=== PATIENT | female | born 2000 | race Caucasian/White ===

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

== ENCOUNTER → 2020-06-06 | Outpatient (CLI) | payer OTHER ==
[~2020-06-06] MED LIST changes: -ASPI-222; +ASPI-527; +CYCL-707 PO; -CYCL10TA PO; +DULC5TAB PO; +FERR324T2 PO; +MIRA3350 PO; +OMEP-218 PO; +PEG1POW PO
[2020-06-06 10:28] LABS: BASO % 0.7 % (0.0-1.0); EOS # 0.1 10^3/uL (0.0-0.5); EOS % 1.8 % (0.0-3.0); HEMATOCRIT 37.3 % (36.0-47.0); HEMOGLOBIN 11.9 g/dl (12.0-15.5); LYMPH # 1.4 10^3/uL (1.5-5.0); LYMPH % 31.3 % (24.0-44.0); MEAN CORPUSCULAR HEMOGLOBIN 27.1 pg (27.0-33.0); MEAN CORPUSCULAR HGB CONC 31.9 g/dl (32.0-36.5); MONO # 0.3 10^3/uL (0.0-0.8); NEUTROPHILS # 2.7 10^3/uL (1.5-8.5); PLATELET COUNT, AUTOMATED 320 10^3/uL (150-450); RED BLOOD COUNT 4.39 10^6/uL (4.00-5.40); WHITE BLOOD COUNT 4.5 10^3/uL (4.0-10.0)
[2020-06-06 10:39] LABS: INR 0.99; PROTHROMBIN TIME 13.3 SECONDS (12.5-14.3)
[2020-06-06 10:40] LABS: PARTIAL THROMBOPLASTIN TIME 32.7 SECONDS (24.2-38.5)
[2020-06-06 10:43] LABS: COLLAGEN EPINEPHRINE 92 SECONDS (74-162)
[2020-06-06 11:08] LABS: ALBUMIN 3.7 GM/DL (3.2-5.2); ALT/SGPT 96 U/L (12-78); BILIRUBIN,TOTAL 0.2 MG/DL (0.2-1.0); BLOOD UREA NITROGEN 8 MG/DL (7-18); CALCIUM LEVEL 9.4 MG/DL (8.5-10.1); CARBON DIOXIDE LEVEL 31 MEQ/L (21-32); CHLORIDE LEVEL 106 MEQ/L (98-107); CREATININE FOR GFR 0.63 MG/DL (0.55-1.30); FREE T4 0.97 NG/DL (0.78-1.33); GLUCOSE, FASTING 78 MG/DL (70-100); IRON (FE) 29 UG/DL (50-170); POTASSIUM SERUM 4.4 MEQ/L (3.5-5.1); SODIUM LEVEL 140 MEQ/L (136-145); TOTAL IRON BINDING CAPACITY 412 UG/DL (250-450)
[2020-06-06 13:03] LABS: VITAMIN B12 LEVEL 513 PG/ML (247-911)
[2020-06-06 13:09] LABS: FOLATE 11.8 NG/ML (>5.4)
[2020-06-08 18:09] LABS: THRYOGLOBULIN ANTIBODIES (ATA) < 1.0 IU/mL (0.0-0.9); THYROGLOBULIN QUANTITATIVE 45.7 ng/mL (1.5-38.5); TSH RECEPTOR ASSAY <1.10 IU/L (0.00-1.75)
== END ==
LOC: M PLALAB 08:43
PROVIDERS: ATTEND Pediatrics
DX: N92.0 Excessive and frequent menstruation with regular cycle (principal)

== ENCOUNTER 2020-06-14 14:15 | Observation (INO) | payer OTHER ==
[~2020-06-14] VITALS: Ht 172.7 cm; Wt 94.0 kg
[~2020-06-14 14:15] MED LIST changes: -DULC5TAB PO; -FERR324T2 PO; -MIRA3350 PO; -OMEP-218 PO; -PEG1POW PO
[2020-06-14] MEDS ORDERED: SODIUM CHLORIDE 0.9% 1000ML IV STA (14:22)
[2020-06-14 14:50] VITALS: BP 153/81
[2020-06-14] MEDS ORDERED: BISACODYL 5 MG TAB PO ONE ×2 (15:00→20:00)
[2020-06-14] MEDS ORDERED: MAALOX 30 ML SUSP *UDC PO ONE (15:00)
[2020-06-14] MEDS ORDERED: LIDOCAINE VISCOUS 2% SOLN 15ML UDC PO ONE (15:00)
[2020-06-14] MEDS ORDERED: FAMOTIDINE INJ 20MG/2ML VIAL (S0028 PER 1) IVP ONE (15:00)
[2020-06-14] MEDS ORDERED: diphenhydrAMINE 12.5MG/5ML ELIXIR UDC PO ONE (15:00)
[2020-06-14] MEDS ORDERED: KETOROLAC 30 MG/ML 1ML VIAL IV ONE (15:00)
[2020-06-14] MEDS ORDERED: METOCLOPRAMIDE INJ 10MG/2ML VIAL (J2765 PER 1) IV ONE (15:00)
[2020-06-14] MEDS ORDERED: FERR324T2 PO (15:43)
[2020-06-14] MEDS ORDERED: OMEP-218 PO (15:43)
[2020-06-14] MEDS ORDERED: MIRA3350 PO (15:43)
[2020-06-14 16:20] LABS: IMMUNOGLOBULIN A 77.9 MG/DL (70-400)
--- NOTE | 2020-06-14 17:00 | HPE ---
HISTORY AND PHYSICAL DATE OF ADMISSION: 06/14/2020 ADMITTING DIAGNOSIS: Constipation. HISTORY: The patient is a 19-year-old female who has had problems with long-standing constipation for the past year. She claims that this has happened after she was on prolonged immobilization and opioids for a leg injury. She has not had a bowel movement for the past 10 days. Her bowel movement has been pretty irregular and she would skip 3-4 days. She has had a couple of ER visits while she was in [place] for stool impactions and had to undergo enema. She has also been having some abdominal pain and has not been eating well due to pain and has lost 37 pounds for the past 3-4 months. She denies any urinary symptoms. She claims to be eating well while in [place] where she has been at college. She avoids dairy because of lactose intolerance. She lives with an aunt who is on a gluten-free diet, so she has been eating healthier. PAST MEDICAL HISTORY: She has issues with some anxiety and depression. She is currently not on any medications for this. She has been previously diagnosed with anemia while she was in [place] and was on iron supplements. ALLERGIES: She denies any food or medication allergies. LABORATORY: Recent blood work done showed a normal CMP with slightly elevated AST, ALT, mild anemia at 11.9. Thyroid functions are normal. IMMUNIZATIONS: Up to date. FAMILY PROFILE: She currently lives with her family here in [place]. She has four siblings at home with her. She is planning to go back to [place] in a few days to resume her college courses. PHYSICAL EXAMINATION: GENERAL: The physical examination today shows a well-appearing 19-year-old. HEENT: Normal. Thyroid not enlarged. Non hyperemic pharyngeal area. LUNGS: Clear. HEART: Regular rate and rhythm, no murmur appreciated. ABDOMEN: Very soft, good bowel sounds but with some tenderness in the bilateral lower quadrants. EXTREMITIES: Otherwise appear warm and well-perfused. PLAN: 1. The plan is to admit the patient for observation. 2. Will do a bowel clean out using MiraLAX and Dulcolax. 3. Will also put the patient on IV famotidine and Toradol and metoclopramide x1 dose to help with the cramping. 4. Put the patient on clears while doing clean out and with hope that she will pass out stool and may be discharged possibly tomorrow morning. Dr. Chandler Ruiz will follow her up tomorrow.
[2020-06-14] MEDS ORDERED: MIRALAX *UNIT DOSE* 17GM PACKET PO ONE (18:00)
[2020-06-14] MEDS: KCL 20MEQ IN D5/0.2%NS 1000ML 1,000 ML IV SCH (18:21)
[2020-06-14 20:00] VITALS: BP 133/77
[2020-06-14] MEDS ORDERED: ONDANSETRON 4MG/2ML VIAL IV PRN (22:00)
[2020-06-14] MEDS ORDERED: KETOROLAC 30 MG/ML 1ML VIAL IV PRN (22:00)
[2020-06-15] VITALS: BP 112/62
[2020-06-15 04:00] VITALS: BP 124/82
[2020-06-15] MEDS: KCL 20MEQ IN D5/0.2%NS 1000ML 1,000 ML IV SCH (06:30)
[2020-06-15 08:05] VITALS: BP 133/64
[2020-06-15] MEDS ORDERED: MAGNESIUM CITRATE 300 ML BTL PO ONE ×2 (09:00→14:00)
[2020-06-15 12:04] VITALS: BP 123/60
--- NOTE | 2020-06-15 14:49 | IPNPDOC ---
Text Note Date of Service The patient was seen on 06/15/20. NOTE S : 19 year old female was sent for admission to the [facility] pediatrics department for a persistent constipation since the last 12 days. Before this she had been to the outpatient provider, last friday with complaints of constipation and was asked to try a trial of Miralax at home. She got 25 mg of Miralax at home twice a day on friday and friday which usually helps her pass a bowel motion, but not this time. At this moment she had also started with a dull achy, abdominal pain in the lower quadrants. She has no associated GI symptoms like vomiting but gets nausea on occasion. She has had her last solid meal on Friday and since then she has only been tolerating liquids. She has a history of recurrent episodes of constipation and Iron deficiency anemia for which she is on Iron supplements (10 months). She states that this started since the last few years after she had been on narcotics for her leg surgery. She was treated for opioid induced constipation but since then she states "it has never been the same". She denies any opioid use since then . She has never had blood in stools, no sensation of incomplete evacuation, no alternate episodes of diarrhea, no new stressors. Hospital day 2: Since yesterday she has been feeling fine but still has not gone to the bathroom to pass bowels, her abdominal pain is consistent with no worsening and her nausea is also better as per the patient. O: GENERAL PHYSICAL EXAMINATION: GENERAL: Pt looks slightly uncomfortable but in no apparent distress. HEENT: Atraumatic/Normocephalic, with no scleral icterus or conjunctival pallor. NECK: No lymphadenopathy or thyromegaly LUNGS: Normal b/l breath sounds with no wheezing, rhonchi or stridor. CVS: Normal heart sounds with no murmurs GI: Soft, Non distended abdomen with dull pain on deep palpation in the lower right and left quadrants of the abdomen. Yin's sign negative. Bowel sounds 1+, No rashes or scars . NEURO: Good motor tone 5/5 and normal reflexes and sensations intact./ PSYCH: Normal mood and affect. A&P: IDIOPATHIC CONSTIPATION: -Continuos monitoring of vitals -Strict I's and O's. -Pt was started on I/V fluids and the amount was decreased from 75 to 25 ml/hour. -Pt was given Miralax overnight 6-8 packets and Dulcolex tablets. -Today we are discontinuing the Miralax and starting Magnesium Citrate 450 ml with clear fluids(240ml over a period of 2 hours) -A repeat dose will be given 4 hours after if the patient continues to be constipated. -Pt is on Zofran and Ketorolac PRN in case of any nausea or pain from cramping. DISPOSITION: Pt has not passed bowels yet and will be discharged when she is able to. VS,Fishbone, I+O VS, Fishbone, I+O Vital Signs Date Time Temp Pulse Resp B/P (MAP) Pulse Ox O2 Delivery O2 Flow Rate FiO2 06/15/20 12:04 97.3 68 20 123/60 (81) 100 Room Air I&O- Last 24 Hours up to 6 AM 06/15/20 06:00 Intake Total 1960 ml Output Total 850 ml Balance 1110 ml GME ATTESTATION GME ATTESTATION My faculty preceptor for this patient encounter was physically present during the encounter and was fully available. All aspects of the patient interview, examination, medical decision making process, and medical care plan development were reviewed and approved by the faculty preceptor. The faculty preceptor is aware and concurs with the plan as stated in the body of this note and will attest to such by his/her cosignature. Gavin Pearson MD Jun 15, 2020 14:49
[2020-06-15 16:07] VITALS: BP 141/75
--- NOTE | 2020-06-15 18:13 | REP ---
INDICATION: 12 days of constipation. COMPARISON: Comparison radiograph 25 May 2018.. TECHNIQUE: Two supine views the abdomen are obtained. FINDINGS: There is some air in the transverse and descending segments of the colon. There is no observable fecal content within the colon. Flank stripes are intact. Psoas margins are obscured. No large or small bowel dilation is appreciated. No bony abnormality is seen. No pathologic calcification or organomegaly seen. IMPRESSION: Bowel gas pattern is unremarkable. There is no observable stool within the colon. No evidence of obstruction. <Electronically signed by Deshaun Mishra > 06/15/20 [id number]
[2020-06-15] MEDS ORDERED: POLY17PO18 PO (18:55)
[2020-06-15] MEDS ORDERED: DULC5TAB PO (18:55)
[2020-06-16 17:12] LABS: ENDOMYSIAL ABY IgA Negative (Negative); TISSUE TRANSGLUTAMINASE IgA <2 U/mL (0-3)
== END 2020-06-15 20:00 | disposition home or self-care (01) ==
LOC: UNDOADMOB 14:22 → M PED 14:22 → INTOOBSV 14:22 → M PED 14:22 → UNDODISOB 06-15 20:00
PROVIDERS: ADMIT Pediatrics; ATTEND Pediatrics
DX: K59.00 Constipation, unspecified (principal); F32.9 Major depressive disorder, single episode, unspecified; F41.9 Anxiety disorder, unspecified
CPT/HCPCS: 36415; 74018; 82150; 82784; 83690; 86235; 86255; 96374; 96375; J1885; J2765

== ENCOUNTER → 2020-06-20 | Outpatient (REF) | payer OTHER ==
[~2020-06-20] MED LIST changes: +DULC5TAB PO; +FERR324T2 PO; +MIRA3350 PO; +OMEP-218 PO; +PEG1POW PO
== END ==
LOC: M LAB REF 16:44
PROVIDERS: ATTEND Pediatrics
DX: Z86.16 Personal history of COVID-19 (principal)

== ENCOUNTER 2020-06-25 18:29 | Emergency (ER) | payer OTHER ==
[~2020-06-25] VITALS: Ht 175.3 cm; Wt 96.2 kg
[2020-06-25] MEDS ORDERED: FERR324T2 (18:38)
--- OUTSIDE RECORDS SUMMARY | 2020-06-25 18:38 | CCD | Continuity of Care Document ---
Author Author Esperanza CARDENAS M.D. Organization Unknown Address [address] [facility] [address] [facility] [address] [place] [address] Phone [phone] Problems Active Problems Provider Date Attention deficit hyperactivity disorder Nicole Triana MD Onset: 08/24/2012 Generalized anxiety disorder Nicole Triana MD Onset: 08/10 Social History Type Date Description Comments Sex Unknown Tobacco Use Start: Unknown Patient has never smoked Allergies, Adverse Reactions, Alerts Description No Known Drug Allergies Medications Active Medications SIG Qnty Indications Ordering Provide r Date Bisacodyl Ec 5mg Tablets DR 1 tab by mouth 2x a day x 3 days 6tabs Real Kent MD 06/12/19 21 Glycerin (Adult) 2gm Suppository 1 supp daily x 3 days 3units Real Kent MD 06/12/[address] 1 tab po daily 90tabs Dyana Cardenas M.D. 06/06/2020 Miralax 17GM/Scoop Powder 1 capful by mouth daily mixed with food. titrate to effect. 1Bottle K59.00 Dyana Cardenas M.D. 06/05/[address] 1 by mouth every day 30caps K21.9 Dyana Cardenas M.D. 06/05/2020 Clonidine HCL 0.1mg Tablets 1 1/2 tab by mouth at bedtime 45tabs Z72.821 Dyana Cardenas M.D. 07/13/2018 Ventolin HFA 108(90Base) mcg/Act A erosol 2 pffs every 4 hours as needed wheezing/before activity 1canister J20.9 Nicole Triana MD 10/03/2016 Immunizations CPT Code Status Date Vaccine Lot # [id number] Given 10/27/2018 Tuberculosis Intradermal [id number] 96085 Given 07/13/2018 Trumenba [facility] Recombinant Lipoprotein Vaccine Serogroup B [id number] 35496 Given 03/24/2018 Influenza .5 [id number] 19377 Given 03/24/2018 Gardasil 9 (Current) [id number] 86183 Given 01/07/2018 Menactra VF [id number] 35021 Given 01/07/2018 [facility]ba [facility] Recombinant Lipoprotein Vaccine Serogroup B [id number] 45387 Given 05/18/2016 Influenza .5 [id number] 47072 Given 07/12/2014 Gardasil (HPV)Old One DO Not Use [id number] 16250 Given 05/02/2014 Gardasil (HPV) [facility] [id number] 46882 Given 04/02/2014 Influenza .5 [id number] 17740 Given 03/27/2013 Influenza 3Yrs And Up [id number] 79838 Given 08/24/2012 Menactra [facility] [id number] 86987 Given 03/14/2012 Influenza 3Yrs And Up [id number] 27564 Given 04/19/2011 Boostrix/Adacell 75036 Given 03/12/2011 Influenza 3Yrs And Up 06110 Given 03/14/2009 Flu Mist/ Live Virus 85828 Given 03/30/2008 Flu Mist/ Live Virus 45188 Given 12/16/2007 Hep A,Ped Dose-2 For Intramu scular Use 50145 Given 06/17/2007 Immunization Influenza (3 Yr s. & Above) 52116 Given 06/17/2007 Hep A,Ped Dose-2 For Intramu scular Use 31000 Given 12/18/2006 Varivax 34324 Given 08/22/2005 DTaP 90174 Given 08/22/2005 MMR Immunization 03413 Given 08/22/2005 IPV Polio Vaccine 14629 Given 08/15/2005 DTaP 67191 Given 05/02/2004 Immunization Influenza (3 Yr s. & Above) 06993 Given 04/14/2003 Immunization Influenza (Unde r 3 Yrs.) 94468 Given 12/22/2001 MMR Immunization 06561 Given 12/22/2001 DTaP 93143 Given 09/29/2001 Hibtiter 19651 Given 09/29/2001 Varivax 98294 Given 09/29/2001 [place] [address] Given 03/30/2001 Hep B 91744 Given 03/30/2001 Hib 25906 Given 01/16/2001 Hib 01686 Given 01/16/2001 [place] [address] Given 01/16/2001 DTaP 65539 Given 01/16/2001 IPV Polio Vaccine 77814 Given 01/16/2001 Hep B 51841 Given 01/16/2001 Comvax 0.5 ML (Combination) [id number] - Hepatits [id number] 83222 Given 2000 Hib 90101 Given 2000 Comvax 0.5 ML (Combination) [id number] - Hepatits [id number] 43622 Given 2000 IPV Polio Vaccine 91529 Given 2000 DTaP 77403 Given 2000 [place] [address] Given 2000 Hep B Vital Signs Date Vital Result Comment 06/14/2020 1:30pm Weight 208.00 lb Weight 94.349 kg Weight Percentile >97th 06/05/2020 2:31pm Weight 207.75 lb Weight 94.235 kg Weight Percentile >97th Results Test Acquired Date Facility Test Result H/L Range Note CBC With Differential 06/06/[address] [address] (315)- - White Blood Count 4.5 10 Normal 4.0-10.0 Red Blood Count 4.39 10 Normal 4.00-5.40 Hemoglobin 11.9 g/dL Low 12.0-15.5 Hematocrit 37.3 % Normal 36.0-47.0 Mean Corpuscular Volume 85.0 fl Normal 80.0-96.0 Mean Corpuscular Hemoglobin 27.1 pg Normal 27.0-33.0 Mean Corpuscular HGB Conc 31.9 g/dL Low 32.0-36.5 Red Cell Distribution Width 13.7 % Normal 11.5-14.5 Platelet Count, Automated 320 10 Normal 150-450 Neutrophils % 60.0 % Normal 36.0-66.0 Lymph % 31.3 % Normal 24.0-44.0 [place] % 6.0 % High 0.0-5.0 Eos % 1.8 % Normal 0.0-3.0 Baso % 0.7 % Normal 0.0-1.0 Immature Granulocyte % 0.2 % Normal 0-3.0 Nucleated Red Blood Cell % 0.0 % Normal 0-0 Neutrophils # 2.7 10 Normal 1.5-8.5 Lymph # 1.4 10 Low 1.5-5.0 [place] # 0.3 10 Normal 0.0-0.8 Eos # 0.1 10 Normal 0.0-0.5 Baso # 0.0 10 Normal 0.0-0.2 Laboratory test finding 06/06/2020 [place] [address] (070)- - Vitamin D 1,25 Dihydroxy 49.0 pg/mL Normal 19.9-79.3 Laboratory test finding 06/06/2020 [place] [address] (096)- - TSH Receptor Assay <1.10 IU/L Normal 0.00-1.75 Thyroglob QNT Incl Thyrogl Diamond 06/06/2020 [place] [address] (247)- - Thyroglobulin Quantitative 45.7 ng/mL High 1.5-38.5 1 Thryoglobulin Antibodies (Fernando) < 1.0 IU/mL Normal 0.0-0.9 2 PT & Aptt 06/06/2020 [facility]ter [address] [place] [address] (198)- - Prothrombin Time 13.3 seconds Normal 12.5-14.3 Inr 0.99 Normal 3 Partial Thromboplastin Time 32.7 seconds Normal 24.2-38.5 Platelet Function Analysis 06/06/2020 [place] [address] (534)- - Collagen Epinephrine 92 seconds Normal 74-162 4 Comprehensive Metabolic Profil 06/06/2020 [place] [address] (059)- - Glucose, Fasting 78 mg/dL Normal 70-100 Blood Urea Nitrogen 8 mg/dL Normal 7-18 Creatinine For GFR 0.63 mg/dL Normal 0.55-1.30 Sodium Level 140 mEq/L Normal 136-145 Potassium Serum 4.4 mEq/L Normal 3.5-5.1 Chloride Level 106 mEq/L Normal 98-107 Carbon Dioxide Level 31 mEq/L Normal 21-32 Anion Gap 3 mEq/L Low 8-16 Calcium Level 9.4 mg/dL Normal 8.5-10.1 Ast/Sgot 63 U/L High 7-37 Alt/SGPT 96 U/L High 12-78 Alkaline Phosphatase 64 U/L Normal 45-117 Bilirubin,Total 0.2 mg/dL Normal 0.2-1.0 Total Protein 7.0 GM/DL Normal 6.4-8.2 Albumin 3.7 GM/DL Normal 3.2-5.2 Albumin/Globulin Ratio 1.1 Low 1.2-2.2 Total Iron Binding Capacit 06/06/[address] [address] (315)- - Iron (Fe) 29 g/dL Low 50-170 Total Iron Binding Capacity 412 g/dL Normal 250-450 Percent Saturation 7.0 % Low 13.2-45.0 Laboratory test finding 06/06/[address] [address] (315)- - Thyroid Stimulating Hormone 2.350 uIU/ML Normal 0.463- 3.98 Free T4 0.97 ng/dL Normal 0.78-1.33 Vitamin B12 Level 513 pg/mL Normal 247-911 5 Folate 11.8 NG/ML Normal >5.4 6 1 . According to the National Academy of Clinical [employer]ochemistry, the reference interval for Thyroglobulin (TG) should be related to euthyroid patients and not for patients who underwent thyroidectomy. TG reference intervals for these patients depend on the residual mass of the thyroid tissue left after surgery. Establishing a post-operative baseline is recommended. The assay limit of quantitation is 0.1 ng/mL . Thyroglobulin measured by [facility] [place] [facility] Performed at: - [facility] [id number] [address] [employer] Driver: Louis Batista MD, Phone: [phone] Performed at: - [facility] [id number] [employer] Driver: Nathalie Marie MD, Phone: [phone] 2 Thyroglobulin Antibody measu red by [facility] 3 THERAPUTIC HUMAN INR VALUES INDICATIONS NORMAL RANGES PROPHYLAXIS/TREATMENT OF: VENOUS THROMBOSIS 2.0-3.0 PULMONARY EMBOLISM 2.0-3.0 PREVENTION OF SYSTEMIC EMBOLISM FROM: TISSUE HEART VALVES 2.0-3.0 ACUTE MYOCARDIAL INFARCTION 2.0-3.0 VALVULAR HEART DISEASE 2.0-3.0 ATRIAL FIBRILLATION 2.0-3.0 MECHANICAL VALVES(HIGH RISK) 2.5-3.5 RECURRENT MYOCARDIAL INFARCTION 2.5-3.5 4 Results may be affected by p latelet counts less than 150,000/mL or hematocrits less than 35%. If COL/EPI is NORMAL, COL/ADP is not performed. Result Interpretation: COL/EPI COL/ADP NORMAL NORMAL NORMAL ASA ABNORMAL NORMAL vWD ABNORMAL NORMAL GLANZMANN'S ABNORMAL ABNORMAL THROMBASTHENIA POSSIBLE DRUG ABNORMAL ABNORMAL EFFECT 5 VITAMIN B12 NORMAL RANGE NORMAL 247 - 911 PG/ML INDETERMINATE 211 - 246 PG/ML DEFICIENT LESS THAN 211 PG/ML 6 FOLATE NORMAL RANGE NORMAL GREATER THAN 5.4 NG/ML INDETERMINATE 3.4-5.4 NG/ML DEFICIENT LESS THAN 3.4 NG/ML Procedures Description No Information Available Medical Devices Description No Information Available Encounters Type Date Location Provider Dx Diagnosis Office Visit 06/20/2020 3:00p Main Office Dyana Cardenas M.D. Z03.818 Encntr for obs for susp expsr to oth biolg agents ruled out Office Visit 06/19/2020 10:15a Main Office Dyana Cardenas M.D. J03.00 Acute streptococcal tonsillitis, unspecified Z86.16 Personal history of Covid-19 Office Visit 06/05/2020 2:15p Main Office Dyana Cardenas M.D. N92.0 Excessive and frequent menstruation with regular cycle D50.9 Iron deficiency anemia, unsp ecified K59.00 Constipation, unspecified K21.9 Gastro-esophageal reflux dis ease without esophagitis Assessments Date Code Description Provider 06/20/2020 Z03.818 Encounter for observ ation for suspected exposure to other biological agents ruled out Dyana Cardenas M.D. 06/19/2020 J03.00 Acute streptococcal tonsillitis, unspecified Dyana Cardenas M.D. 06/19/2020 Z86.16 Personal history of Covid-19 Ina Cardenas M.D. 06/05/2020 N92.0 Excessive and frequent menstruat ion with regular cycle Dyana Cardenas M.D. 06/05/2020 D50.9 Iron deficiency anemia, unspecif ied Dyana Cardenas M.D. 06/05/2020 K59.00 Constipation, unspecified Dyana ahmadi M.D. 06/05/2020 K21.9 Gastro-esophageal reflux disease without esophagitis Dyana Cardenas M.D. Plan of Treatment Future Appointment(s):* 07/06/2020 2:15 pm - Dyana Cardenas M.D. at Main Office 06/19/2020 - Dyana Cardenas M.D.* J03.00 Acute streptococcal tonsillitis, unspecified* Comments:* continue current antibiotics * Z86.16 Personal history of Covid-19* Comments:* awating confirmatory PCR Functional Status Description No Information Available Mental Status Description No Information Available Referrals Description No Information Available
--- OUTSIDE RECORDS SUMMARY | 2020-06-25 18:38 | CCD | Continuity of Care Document ---
Author Author Esperanza CARDENAS M.D. Organization Unknown Address [address] [facility] [address] [place] [address] Phone [phone] Problems Active Problems Provider Date Attention deficit [...] CPT Code Status Date Vaccine Lot # 11073 Given 10/27/2018 Tuberculosis Intradermal [id number] 41661 Given 07/13/2018 Trumen[facility] Recombinant Lipoprotein Vaccine Serogroup B [id number] 44002 Given 03/24/2018 Influenza .5 [id number] 72356 Given 03/24/2018 Gardasil 9 (Current) [id number] 67308 Given 01/07/2018 Menactra VF [id number] 12914 Given 01/07/2018 Trumenba [facility] Recombinant Lipoprotein Vaccine Serogroup B [id number] 67088 Given 05/18/2016 Influenza .5 [id number] 23960 Given 07/12/2014 Gardasil (HPV)Old One DO Not Use [id number] 32791 Given 05/02/2014 Gardasil (HPV) [facility] [id number] 76668 Given 04/02/2014 Influenza .5 [id number] 18373 Given 03/27/2013 Influenza 3Yrs And Up [id number] 50641 Given 08/24/2012 Menactra [facility] [id number] 30261 Given 03/14/2012 Influenza 3Yrs And Up [id number] 02928 Given 04/19/2011 Boostrix/Adacell 58436 Given 03/12/2011 Influenza 3Yrs And Up 80648 Given 03/14/2009 Flu Mist/ Live Virus 14215 Given 03/30/2008 Flu Mist/ Live Virus 57779 Given 12/16/2007 Hep A,Ped Dose-2 For Intramu scular Use 21591 Given 06/17/2007 Immunization Influenza (3 Yr s. & Above) 54776 Given 06/17/2007 Hep A,Ped Dose-2 For Intramu scular Use 36061 Given 12/18/2006 Varivax 62145 Given 08/22/2005 DTaP 99630 Given 08/22/2005 MMR Immunization 73966 Given 08/22/2005 IPV Polio Vaccine 08457 Given 08/15/2005 DTaP 94255 Given 05/02/2004 Immunization Influenza (3 Yr s. & Above) 47313 Given 04/14/2003 Immunization Influenza (Unde r 3 Yrs.) 58079 Given 12/22/2001 MMR Immunization 56169 Given 12/22/2001 DTaP 31313 Given 09/29/2001 Hibtiter 75966 Given 09/29/2001 Varivax 15041 Given 09/29/2001 [place] [address] Given 03/30/2001 Hep B 14180 Given 03/30/2001 Hib 40385 Given 01/16/2001 Hib 12859 Given 01/16/2001 [place] [address] Given 01/16/2001 DTaP 59557 Given 01/16/2001 IPV Polio Vaccine 27766 Given 01/16/2001 Hep B 15650 Given 01/16/2001 Comvax 0.5 ML (Combination) Hib-[id number] - Hepatits B-34046 18534 Given 2000 Hib 39049 Given 2000 Comvax 0.5 ML (Combination) Hib-46944 - Hepatits B-52966 04734 Given 2000 IPV Polio Vaccine 55664 Given 2000 DTaP 65054 Given 2000 [place] [address] Given 2000 Hep B Vital Signs Date Vital Result Comment 06/14/2020 1:30pm Weight 208.00 lb Weight 94.349 kg Weight Percentile >97th 06/05/2020 2:31pm Weight 207.75 lb Weight 94.235 kg Weight Percentile >97th Results Test Acquired Date Facility Test Result H/L Range Note Laboratory test finding 06/20/[address] [address] (315)- - Coronavirus 2019 Nasopharygeal This nucleic aci <SEE NOTE> 1 Laboratory test finding 06/06/[address] [address] (315)- - Vitamin D 1,25 Dihydroxy 49.0 pg/mL Normal 19.9-79.3 Laboratory test finding 06/06/[address] [address] (315)- - TSH Receptor Assay <1.10 IU/L Normal 0.00-1.75 Thyroglob QNT Incl Thyrogl Diamond 06/06/[address] [address] (315)- - Thyroglobulin Quantitative 45.7 ng/mL High 1.5-38.5 2 Thryoglobulin Antibodies (Fernando) < 1.0 IU/mL Normal 0.0-0.9 3 PT & Aptt 06/06/2020 [facility] nter [address] [place] [address] (315)- - Prothrombin Time 13.3 seconds Normal 12.5-14.3 Inr 0.99 Normal 4 Partial Thromboplastin Time 32.7 seconds Normal 24.2-38.5 Platelet Function Analysis 06/06/2020 [place] [address] (315)- - Collagen Epinephrine 92 seconds Normal 74-162 5 Comprehensive Metabolic Profil 06/06/2020 [place] [address] (315)- - Glucose, Fasting 78 mg/dL Normal 70-100 [...] Low 1.2-2.2 Total Iron Binding Capacit 06/06/2020 [place] [address] (315)- - Iron (Fe) 29 g/dL Low 50-170 Total Iron Binding Capacity 412 g/dL Normal 250-450 Percent Saturation 7.0 % Low 13.2-45.0 Laboratory test finding 06/06/2020 [facility] [address] [place] [address] (315)- - Thyroid Stimulating Hormone 2.350 uIU/ML Normal 0.463- 3.98 Free T4 0.97 ng/dL Normal 0.78-1.33 Vitamin B12 Level 513 pg/mL Normal 247-911 6 Folate 11.8 NG/ML Normal >5.4 7 CBC With Differential 06/06/2020 [facility] [address] [place] [address] (315)- - White Blood Count 4.5 10 [...] 36.0-66.0 Lymph % 31.3 % Normal 24.0-44.0 [place] % 6.0 % High 0.0-5.0 Eos % 1.8 % Normal 0.0-3.0 Baso % 0.7 % Normal 0.0-1.0 Immature Granulocyte % 0.2 % Normal 0-3.0 Nucleated Red Blood Cell % 0.0 % Normal 0-0 Neutrophils # 2.7 10 Normal 1.5-8.5 Lymph # 1.4 10 Low 1.5-5.0 [place] # 0.3 10 Normal 0.0-0.8 Eos # 0.1 10 Normal 0.0-0.5 Baso # 0.0 10 Normal 0.0-0.2 1 This nucleic acid amplificat ion test was developed and its performance characteristics determined by [employer]. Nucleic acid amplification tests include RT- PCR and TMA. This test has not been FDA cleared or approved. This test has been authorized by FDA under an Emergency Use Authorization (EUA). This test is only authorized for the duration of time the declaration that circumstances exist justifying the authorization of the emergency use of in vitro diagnostic tests for detection of SARS-CoV-2 virus and/or diagnosis of COVID-19 infection under section 564(b)(1) of the Act, 21 U.S.C. 360bbb-3(b) (1), unless the authorization is termina cally or revoked sooner. When diagnostic testing is negative, the possibility of a false negative result should be considered in the context of a patient's recent exposures and the presence of clinical signs and symptoms consistent with COVID-19. An individual without symptoms of COVID-19 and who is not shedding SARS-CoV-2 virus would expect to have a negative (not detected) result in this assay. Performed at: [facility] [address], [place] [id number] Polysom Tech: Lashell Whaley PhD, Phone: [phone] Not Detected 2 . According to the National Academy of [...] 0.1 ng/mL . Thyroglobulin measured by Munira Devers Immunometric Assay Performed at: - [facility] [id number] Polysom Tech: Louis Batista MD, Phone: [phone] Performed at: - [facility] [address] [id number] Polysom Tech: Nathalie Marie MD, Phone: [phone] 3 Thyroglobulin Antibody measu red by Munira Devers Methodology 4 THERAPUTIC HUMAN INR VALUES INDICATIONS NORMAL RANGES PROPHYLAXIS/TREATMENT OF: VENOUS THROMBOSIS 2.0-3.0 PULMONARY EMBOLISM 2.0-3.0 PREVENTION OF SYSTEMIC EMBOLISM FROM: TISSUE HEART VALVES 2.0-3.0 ACUTE MYOCARDIAL INFARCTION 2.0-3.0 VALVULAR HEART DISEASE 2.0-3.0 ATRIAL FIBRILLATION 2.0-3.0 MECHANICAL VALVES(HIGH RISK) 2.5-3.5 RECURRENT MYOCARDIAL INFARCTION 2.5-3.5 5 Results may be affected by p latelet counts less than 150,000/mL or hematocrits less than 35%. If COL/EPI is NORMAL, COL/ADP is not performed. Result Interpretation: COL/EPI COL/ADP NORMAL NORMAL NORMAL ASA ABNORMAL NORMAL vWD ABNORMAL NORMAL GLANZMANN'S ABNORMAL ABNORMAL THROMBASTHENIA POSSIBLE DRUG ABNORMAL ABNORMAL EFFECT 6 VITAMIN B12 NORMAL RANGE NORMAL 247 - 911 PG/ML INDETERMINATE 211 - 246 PG/ML DEFICIENT LESS THAN 211 PG/ML 7 FOLATE NORMAL RANGE NORMAL GREATER THAN 5.4 [...]
--- OUTSIDE RECORDS SUMMARY | 2020-06-25 18:38 | CCD | Continuity of Care Document ---
Author Author Esperanza CARDENAS M.D. Organization Unknown Address [address] [facility] [address] [place] [address] Phone [phone] Problems Active Problems Provider Date Attention deficit hyperactivity disorder Nicole Triana MD Onset: 08/24/2012 Generalized anxiety disorder Nicole Triana MD Onset: 08/10 Social History Type Date Description Comments Sex Unknown Tobacco Use Start: Unknown Patient has never smoked Allergies, Adverse Reactions, Alerts Description No Known Drug Allergies Medications Active Medications SIG Qnty Indications Ordering Provide r Date Ferrous Sulfate 324mg Tablets DR 1 tab [...] CPT Code Status Date Vaccine Lot # 20317 Given 10/27/2018 Tuberculosis Intradermal C55 [id number] 07128 Given 07/13/2018 Trumenba [facility] Recombinant Lipoprotein Vaccine Serogroup B [id number] 74023 Given 03/24/2018 Influenza .5 [id number] 58066 Given 03/24/2018 Gardasil 9 (Current) [id number] 74113 Given 01/07/2018 Menactra [facility] [id number] 39582 Given 01/07/2018 Trumenba [facility] Recombinant Lipoprotein Vaccine Serogroup B [id number] 86382 Given 05/18/2016 Influenza .5 [id number] 67259 Given 07/12/2014 Gardasil (HPV)Old One DO Not Use [id number] 46000 Given 05/02/2014 Gardasil (HPV) [facility] [id number] 05777 Given 04/02/2014 Influenza .5 [id number] 47961 Given 03/27/2013 Influenza 3Yrs And Up [id number] 23237 Given 08/24/2012 Menactra [facility] [id number] 90874 Given 03/14/2012 Influenza 3Yrs And Up [id number] 11728 Given 04/19/2011 Boostrix/Adacell 67316 Given 03/12/2011 Influenza 3Yrs And Up 59406 Given 03/14/2009 Flu Mist/ Live Virus 51790 Given 03/30/2008 Flu Mist/ Live Virus 24629 Given 12/16/2007 Hep A,Ped Dose-2 For Intramu scular Use 32490 Given 06/17/2007 Immunization Influenza (3 Yr s. & Above) 51073 Given 06/17/2007 Hep A,Ped Dose-2 For Intramu scular Use 83486 Given 12/18/2006 Varivax 72414 Given 08/22/2005 DTaP 33628 Given 08/22/2005 MMR Immunization 48267 Given 08/22/2005 IPV Polio Vaccine 78889 Given 08/15/2005 DTaP 55274 Given 05/02/2004 Immunization Influenza (3 Yr s. & Above) 01331 Given 04/14/2003 Immunization Influenza (Unde r 3 Yrs.) 35988 Given 12/22/2001 MMR Immunization 50091 Given 12/22/2001 DTaP 87209 Given 09/29/2001 Hibtiter 52582 Given 09/29/2001 Varivax 98721 Given 09/29/2001 [place] [address] Given 03/30/2001 Hep B 68592 Given 03/30/2001 Hib 09051 Given 01/16/2001 Hib 56246 Given 01/16/2001 [place] [address] Given 01/16/2001 DTaP 50947 Given 01/16/2001 IPV Polio Vaccine 78341 Given 01/16/2001 Hep B 55097 Given 01/16/2001 Comvax 0.5 ML (Combination) Hib-[id number] - Hepatits B-20165 45876 Given 2000 Hib 93401 Given 2000 Comvax 0.5 ML (Combination) Hib-98659 - Hepatits B-94413 62961 Given 2000 IPV Polio Vaccine 82668 Given 2000 DTaP 33131 Given 2000 [place] [address] Given 2000 Hep B Vital Signs Date Vital Result Comment 06/05/2020 2:31pm Weight 207.75 lb Weight 94.235 kg Weight Percentile >97th 10/27/2018 9:27am Weight 238.50 lb Weight 108.184 kg Body Temperature 97.3 F Weight Percentile >97th Results Test Acquired Date Facility Test Result H/L Range Note CBC With Differential 06/06/[address] [address] (315)- - White Blood Count 4.5 10 [...] 36.0-66.0 Lymph % 31.3 % Normal 24.0-44.0 [place] % 6.0 % High 0.0-5.0 Eos % 1.8 % Normal 0.0-3.0 Baso % 0.7 % Normal 0.0-1.0 Immature Granulocyte % 0.2 % Normal 0-3.0 Nucleated Red Blood Cell % 0.0 % Normal 0-0 Neutrophils # 2.7 10 Normal 1.5-8.5 Lymph # 1.4 10 Low 1.5-5.0 [place] # 0.3 10 Normal 0.0-0.8 Eos # 0.1 10 Normal 0.0-0.5 Baso # 0.0 10 Normal 0.0-0.2 Laboratory test finding 06/06/2020 [place] [address] (315)- - Vitamin D 1,25 Dihydroxy <pending> Laboratory test finding 06/06/2020 [place] [address] (315)- - TSH Receptor Assay <pending> PT & Aptt 06/06/2020 [facility] nter [address] [place] [address] (315)- - Prothrombin Time 13.3 seconds Normal 12.5-14.3 Inr 0.99 Normal 1 Partial Thromboplastin Time 32.7 seconds Normal 24.2-38.5 Platelet Function Analysis 06/06/[address] [address] (315)- - Collagen Epinephrine 92 seconds Normal 74-162 2 Comprehensive Metabolic Profil 06/06/[address] [address] (315)- - Glucose, Fasting 78 mg/dL Normal [...] Low 1.2-2.2 Total Iron Binding Capacit 06/06/[address] [address] (315)- - Iron (Fe) 29 g/dL Low 50-170 Total Iron Binding Capacity 412 g/dL Normal 250-450 Percent Saturation 7.0 % Low 13.2-45.0 Laboratory test finding 06/06/[address] [address] (315)- - Thyroid Stimulating Hormone 2.350 uIU/ML Normal 0.463- 3.98 Free T4 0.97 ng/dL Normal 0.78-1.33 Vitamin B12 Level 513 pg/mL Normal 247-911 3 Folate 11.8 NG/ML Normal >5.4 4 1 THERAPUTIC HUMAN INR VALUES INDICATIONS NORMAL RANGES PROPHYLAXIS/TREATMENT OF: VENOUS THROMBOSIS 2.0-3.0 PULMONARY EMBOLISM 2.0-3.0 PREVENTION OF SYSTEMIC EMBOLISM FROM: TISSUE HEART VALVES 2.0-3.0 ACUTE MYOCARDIAL INFARCTION 2.0-3.0 VALVULAR HEART DISEASE 2.0-3.0 ATRIAL FIBRILLATION 2.0-3.0 MECHANICAL VALVES(HIGH RISK) 2.5-3.5 RECURRENT MYOCARDIAL INFARCTION 2.5-3.5 2 Results may be affected by p latelet counts less than 150,000/mL or hematocrits less than 35%. If COL/EPI is NORMAL, COL/ADP is not performed. Result Interpretation: COL/EPI COL/ADP NORMAL NORMAL NORMAL ASA ABNORMAL NORMAL vWD ABNORMAL NORMAL GLANZMANN'S ABNORMAL ABNORMAL THROMBASTHENIA POSSIBLE DRUG ABNORMAL ABNORMAL EFFECT 3 VITAMIN B12 NORMAL RANGE NORMAL 247 - 911 PG/ML INDETERMINATE 211 - 246 PG/ML DEFICIENT LESS THAN 211 PG/ML 4 FOLATE NORMAL RANGE NORMAL GREATER THAN 5.4 NG/ML INDETERMINATE 3.4-5.4 NG/ML DEFICIENT LESS THAN 3.4 NG/ML Procedures Description No Information Available Medical Devices Description No Information Available Encounters Type Date Location Provider Dx Diagnosis Office Visit 06/05/2020 2:15p Main Office Dyana Cardenas M.D. N92.0 Excessive and frequent menstruation with regular cycle D50.9 Iron deficiency anemia, unsp ecified K59.00 Constipation, unspecified K21.9 Gastro-esophageal reflux dis ease without esophagitis Assessments Date Code Description Provider 06/05/2020 N92.0 Excessive and frequent menstruat ion with regular cycle Dyana Cardenas M.D. 06/05/2020 D50.9 Iron deficiency anemia, unspecif ied Dyana Cardenas M.D. 06/05/2020 K59.00 Constipation, unspecified Dyana ahmadi M.D. 06/05/2020 K21.9 Gastro-esophageal reflux disease without esophagitis Dyana Cardenas M.D. Plan of Treatment Future Appointment(s):* 07/06/2020 2:15 pm - Dyana Cardenas M.D. 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 titrate to effect. * Comments:* Increase Fiber Increase Fluids Table to toilet routine * K21.9 Gastro-esophageal reflux disease without esophagitis* New Medication:* Omeprazole 20 mg - 1 by mouth every day Functional Status Description No Information Available Mental Status Description No Information Available Referrals Description No Information Available
--- OUTSIDE RECORDS SUMMARY | 2020-06-25 18:38 | CCD | Continuity of Care Document ---
Author Author Esperanza CARDENAS M.D. Organization Unknown Address [address] [facility] [address] [place] [address] Phone [phone] Problems Active Problems Provider Date Attention deficit [...] CPT Code Status Date Vaccine Lot # 63705 Given 10/27/2018 Tuberculosis Intradermal C55 [id number] 61293 Given 07/13/2018 Trumenba [facility] Recombinant Lipoprotein Vaccine Serogroup B [id number] 50836 Given 03/24/2018 Influenza .5 [id number] 80321 Given 03/24/2018 Gardasil 9 (Current) [id number] 96772 Given 01/07/2018 Menactra VF [id number] 19581 Given 01/07/2018 Trumenba [facility] Recombinant Lipoprotein Vaccine Serogroup B [id number] 17301 Given 05/18/2016 Influenza .5 [id number] 96804 Given 07/12/2014 Gardasil (HPV)Old One DO Not Use [id number] 76797 Given 05/02/2014 Gardasil (HPV) [facility] [id number] 88284 Given 04/02/2014 Influenza .5 [id number] 04149 Given 03/27/2013 Influenza 3Yrs And Up [id number] 98975 Given 08/24/2012 Menactra [facility] [id number] 26221 Given 03/14/2012 Influenza 3Yrs And Up [id number] 99784 Given 04/19/2011 Boostrix/Adacell 45478 Given 03/12/2011 Influenza 3Yrs And Up 12107 Given 03/14/2009 Flu Mist/ Live Virus 98712 Given 03/30/2008 Flu Mist/ Live Virus 18409 Given 12/16/2007 Hep A,Ped Dose-2 For Intramu scular Use 60950 Given 06/17/2007 Immunization Influenza (3 Yr s. & Above) 80818 Given 06/17/2007 Hep A,Ped Dose-2 For Intramu scular Use 36251 Given 12/18/2006 Varivax 83152 Given 08/22/2005 DTaP 04077 Given 08/22/2005 MMR Immunization 79518 Given 08/22/2005 IPV Polio Vaccine 51294 Given 08/15/2005 DTaP 18065 Given 05/02/2004 Immunization Influenza (3 Yr s. & Above) 89550 Given 04/14/2003 Immunization Influenza (Unde r 3 Yrs.) 22865 Given 12/22/2001 MMR Immunization 47824 Given 12/22/2001 DTaP 76771 Given 09/29/2001 Hibtiter 36471 Given 09/29/2001 Varivax 16304 Given 09/29/2001 [place] [address] Given 03/30/2001 Hep B 91916 Given 03/30/2001 Hib 93678 Given 01/16/2001 Hib 70375 Given 01/16/2001 [place] [address] Given 01/16/2001 DTaP 39845 Given 01/16/2001 IPV Polio Vaccine 43754 Given 01/16/2001 Hep B 97489 Given 01/16/2001 Comvax 0.5 ML (Combination) Hib-51221 - Hepatits B-37231 58428 Given 2000 Hib 05609 Given 2000 Comvax 0.5 ML (Combination) Hib-35198 - Hepatits B-52430 66967 Given 2000 IPV Polio Vaccine 49755 Given 2000 DTaP 01445 Given 2000 [place] [address] Given 2000 Hep B Vital Signs Date Vital Result Comment 06/14/2020 1:30pm Weight 208.00 lb Weight 94.349 kg Weight Percentile >97th 06/05/2020 2:31pm Weight 207.75 lb Weight 94.235 kg Weight Percentile >97th Results Test Acquired Date Facility Test Result H/L Range Note CBC With Differential 06/06/[address] [address] (315)- - White Blood Count 4.5 10 [...] 36.0-66.0 Lymph % 31.3 % Normal 24.0-44.0 [place] % 6.0 % High 0.0-5.0 Eos % 1.8 % Normal 0.0-3.0 Baso % 0.7 % Normal 0.0-1.0 Immature Granulocyte % 0.2 % Normal 0-3.0 Nucleated Red Blood Cell % 0.0 % Normal 0-0 Neutrophils # 2.7 10 Normal 1.5-8.5 Lymph # 1.4 10 Low 1.5-5.0 [place] # 0.3 10 Normal 0.0-0.8 Eos # 0.1 10 Normal 0.0-0.5 Baso # 0.0 10 Normal 0.0-0.2 Laboratory test finding 06/06/2020 [place] [address] (440)- - Vitamin D 1,25 Dihydroxy 49.0 pg/mL Normal 19.9-79.3 Laboratory test finding 06/06/2020 [place] [address] (225)- - TSH Receptor Assay <1.10 IU/L Normal 0.00-1.75 Thyroglob QNT Incl Thyrogl Diamond 06/06/2020 [place] [address] (318)- - Thyroglobulin Quantitative 45.7 ng/mL High 1.5-38.5 1 Thryoglobulin Antibodies (Fernando) < 1.0 IU/mL Normal 0.0-0.9 2 PT & Aptt 06/06/2020 [facility] nter [address] [place] [address] (005)- - Prothrombin Time 13.3 seconds Normal 12.5-14.3 Inr 0.99 Normal 3 Partial Thromboplastin Time 32.7 seconds Normal 24.2-38.5 Platelet Function Analysis 06/06/2020 [place] [address] (672)- - Collagen Epinephrine 92 seconds Normal 74-162 4 Comprehensive Metabolic Profil 06/06/2020 [place] [address] (124)- - Glucose, Fasting 78 mg/dL Normal 70-100 [...] Low 1.2-2.2 Total Iron Binding Capacit 06/06/[address] [address] (315)- - Iron (Fe) 29 g/dL Low 50-170 Total Iron Binding Capacity 412 g/dL Normal 250-450 Percent Saturation 7.0 % Low 13.2-45.0 Laboratory test finding 06/06/[address] [address] (315)- - Thyroid Stimulating Hormone 2.350 uIU/ML [...] 0.1 ng/mL . 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
--- OUTSIDE RECORDS SUMMARY | 2020-06-25 18:38 | CCD | Continuity of Care Document ---
Author Author Esperanza CARDENAS M.D. Organization Unknown Address [address] [facility] [address] [place] [address] Phone [phone] Problems Active Problems Provider Date Attention deficit [...] CPT Code Status Date Vaccine Lot # 76876 Given 10/27/2018 Tuberculosis Intradermal C55 [id number] 72030 Given 07/13/2018 Trumenba [facility] Recombinant Lipoprotein Vaccine Serogroup B [id number] 35819 Given 03/24/2018 Influenza .5 [id number] 90505 Given 03/24/2018 Gardasil 9 (Current) [id number] 28729 Given 01/07/2018 Menactra [facility] [id number] 78662 Given 01/07/2018 Trumenba [facility] Recombinant Lipoprotein Vaccine Serogroup B [id number] 99605 Given 05/18/2016 Influenza .5 [id number] 40661 Given 07/12/2014 Gardasil (HPV)Old One DO Not Use [id number] 34811 Given 05/02/2014 Gardasil (HPV) [facility] [id number] 27307 Given 04/02/2014 Influenza .5 [id number] 77419 Given 03/27/2013 Influenza 3Yrs And Up [id number] 77690 Given 08/24/2012 Menactra [facility] [id number] 25127 Given 03/14/2012 Influenza 3Yrs And Up [id number] 35986 Given 04/19/2011 Boostrix/Adacell 04233 Given 03/12/2011 Influenza 3Yrs And Up 91992 Given 03/14/2009 Flu Mist/ Live Virus 24618 Given 03/30/2008 Flu Mist/ Live Virus 97440 Given 12/16/2007 Hep A,Ped Dose-2 For Intramu scular Use 07037 Given 06/17/2007 Immunization Influenza (3 Yr s. & Above) 38059 Given 06/17/2007 Hep A,Ped Dose-2 For Intramu scular Use 86585 Given 12/18/2006 Varivax 17290 Given 08/22/2005 DTaP 67288 Given 08/22/2005 MMR Immunization 34562 Given 08/22/2005 IPV Polio Vaccine 91169 Given 08/15/2005 DTaP 22426 Given 05/02/2004 Immunization Influenza (3 Yr s. & Above) 64122 Given 04/14/2003 Immunization Influenza (Unde r 3 Yrs.) 90331 Given 12/22/2001 MMR Immunization 39079 Given 12/22/2001 DTaP 07680 Given 09/29/2001 Hibtiter 24116 Given 09/29/2001 Varivax 05860 Given 09/29/2001 [place] [address] Given 03/30/2001 Hep B 55059 Given 03/30/2001 Hib 06502 Given 01/16/2001 Hib 89537 Given 01/16/2001 [place] [address] Given 01/16/2001 DTaP 12202 Given 01/16/2001 IPV Polio Vaccine 07791 Given 01/16/2001 Hep B 78618 Given 01/16/2001 Comvax 0.5 ML (Combination) Hib-09472 - Hepatits B-02665 73945 Given 2000 Hib 88307 Given 2000 Comvax 0.5 ML (Combination) Hib-07366 - Hepatits B-39872 08425 Given 2000 IPV Polio Vaccine 78325 Given 2000 DTaP 58357 Given 2000 [place] [address] Given 2000 Hep B Vital Signs Date Vital Result Comment 06/05/2020 2:31pm Weight 207.75 lb Weight 94.235 kg Weight Percentile >97th 10/27/2018 9:27am Weight 238.50 lb Weight 108.184 kg Body Temperature 97.3 F Weight Percentile >97th Results Test Acquired Date Facility Test Result H/L Range Note CBC With Differential 06/06/[address] [address] (315)- - White Blood Count 4.5 10 [...] 36.0-66.0 Lymph % 31.3 % Normal 24.0-44.0 [place] % 6.0 % High 0.0-5.0 Eos % 1.8 % Normal 0.0-3.0 Baso % 0.7 % Normal 0.0-1.0 Immature Granulocyte % 0.2 % Normal 0-3.0 Nucleated Red Blood Cell % 0.0 % Normal 0-0 Neutrophils # 2.7 10 Normal 1.5-8.5 Lymph # 1.4 10 Low 1.5-5.0 [place] # 0.3 10 Normal 0.0-0.8 Eos # 0.1 10 Normal 0.0-0.5 Baso # 0.0 10 Normal 0.0-0.2 PT & Aptt 06/06/2020 [facility] nter [address] [place] [address] (315)- - Prothrombin Time 13.3 seconds Normal 12.5-14.3 Inr 0.99 Normal 1 Partial Thromboplastin Time 32.7 seconds Normal 24.2-38.5 Platelet Function Analysis 06/06/[address] [address] (315)- - Collagen Epinephrine 92 seconds Normal 74-162 2 Comprehensive Metabolic Profil 06/06/[address] [address] (315)- - Glucose, Fasting 78 mg/dL Normal [...] Low 1.2-2.2 Total Iron Binding Capacit 06/06/[address] [address] (315)- - Iron (Fe) 29 g/dL Low 50-170 Total Iron Binding Capacity 412 g/dL Normal 250-450 Percent Saturation 7.0 % Low 13.2-45.0 Laboratory test finding 06/06/2020 [facility] [address] [place] [address] (315)- - Thyroid Stimulating Hormone 2.350 uIU/ML [...] menstruation with regular cycle* 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
--- OUTSIDE RECORDS SUMMARY | 2020-06-25 18:38 | CCD | Continuity of Care Document ---
Author Author Esperanza CARDENAS M.D. Organization Unknown Address [address] [facility] [address] [place] [address] Phone [phone] Problems Active Problems Provider Date Attention deficit [...] CPT Code Status Date Vaccine Lot # [id number] Given 10/27/2018 Tuberculosis Intradermal [id number] 81526 Given 07/13/2018 Trumenba [facility] Recombinant Lipoprotein Vaccine Serogroup B [id number] 65062 Given 03/24/2018 Influenza .5 [id number] 79784 Given 03/24/2018 Gardasil 9 (Current) [id number] 45027 Given 01/07/2018 Menactra VF [id number] 95180 Given 01/07/2018 Trumenba [facility] Recombinant Lipoprotein Vaccine Serogroup B [id number] 63764 Given 05/18/2016 Influenza .5 [id number] 97094 Given 07/12/2014 Gardasil (HPV)Old One DO Not Use [id number] 22110 Given 05/02/2014 Gardasil (HPV) [facility] [id number] 16041 Given 04/02/2014 Influenza .5 [id number] 51112 Given 03/27/2013 Influenza 3Yrs And Up [id number] 93259 Given 08/24/2012 Menactra [facility] [id number] 74591 Given 03/14/2012 Influenza 3Yrs And Up [id number] 47050 Given 04/19/2011 Boostrix/Adacell 72122 Given 03/12/2011 Influenza 3Yrs And Up 61353 Given 03/14/2009 Flu Mist/ Live Virus 33817 Given 03/30/2008 Flu Mist/ Live Virus 64069 Given 12/16/2007 Hep A,Ped Dose-2 For Intramu scular Use 70650 Given 06/17/2007 Immunization Influenza (3 Yr s. & Above) 81841 Given 06/17/2007 Hep A,Ped Dose-2 For Intramu scular Use 97745 Given 12/18/2006 Varivax 19983 Given 08/22/2005 DTaP 83730 Given 08/22/2005 MMR Immunization 22430 Given 08/22/2005 IPV Polio Vaccine 94409 Given 08/15/2005 DTaP 36788 Given 05/02/2004 Immunization Influenza (3 Yr s. & Above) 16563 Given 04/14/2003 Immunization Influenza (Unde r 3 Yrs.) 04867 Given 12/22/2001 MMR Immunization 81656 Given 12/22/2001 DTaP 51345 Given 09/29/2001 Hibtiter 09238 Given 09/29/2001 Varivax 71311 Given 09/29/2001 [place] [address] Given 03/30/2001 Hep B 98602 Given 03/30/2001 Hib 64476 Given 01/16/2001 Hib 35255 Given 01/16/2001 [place] [address] Given 01/16/2001 DTaP 94797 Given 01/16/2001 IPV Polio Vaccine 24217 Given 01/16/2001 Hep B 98398 Given 01/16/2001 Comvax 0.5 ML (Combination) Hib-[id number] - Hepatits B-[id number] 37286 Given 2000 Hib 33215 Given 2000 Comvax 0.5 ML (Combination) Hib-88434 - Hepatits B-[id number] 05819 Given 2000 IPV Polio Vaccine 74079 Given 2000 DTaP 16031 Given 2000 [place] [address] Given 2000 Hep B Vital Signs Date Vital Result Comment 06/14/2020 1:30pm Weight 208.00 lb Weight 94.349 kg Weight Percentile >97th 06/05/2020 2:31pm Weight 207.75 lb Weight 94.235 kg Weight Percentile >97th Results Test Acquired Date Facility Test Result H/L Range Note CBC With Differential 06/06/[address] [address] (315)- - White Blood Count 4.5 10 [...] 36.0-66.0 Lymph % 31.3 % Normal 24.0-44.0 [place] % 6.0 % High 0.0-5.0 Eos % 1.8 % Normal 0.0-3.0 Baso % 0.7 % Normal 0.0-1.0 Immature Granulocyte % 0.2 % Normal 0-3.0 Nucleated Red Blood Cell % 0.0 % Normal 0-0 Neutrophils # 2.7 10 Normal 1.5-8.5 Lymph # 1.4 10 Low 1.5-5.0 [place] # 0.3 10 Normal 0.0-0.8 Eos # 0.1 10 Normal 0.0-0.5 Baso # 0.0 10 Normal 0.0-0.2 Laboratory test finding 06/06/2020 [place] [address] (368)- - Vitamin D 1,25 Dihydroxy 49.0 pg/mL Normal 19.9-79.3 Laboratory test finding 06/06/2020 [place] [address] (263)- - TSH Receptor Assay <1.10 IU/L Normal 0.00-1.75 Thyroglob QNT Incl Thyrogl Diamond 06/06/2020 [place] [address] (516)- - Thyroglobulin Quantitative 45.7 ng/mL High 1.5-38.5 1 Thryoglobulin Antibodies (Fernando) < 1.0 IU/mL Normal 0.0-0.9 2 PT & Aptt 06/06/2020 [facility] nter [address] [place] [address] (923)- - Prothrombin Time 13.3 seconds Normal 12.5-14.3 Inr 0.99 Normal 3 Partial Thromboplastin Time 32.7 seconds Normal 24.2-38.5 Platelet Function Analysis 06/06/2020 [place] [address] (266)- - Collagen Epinephrine 92 seconds Normal 74-162 4 Comprehensive Metabolic Profil 06/06/2020 [place] [address] (077)- - Glucose, Fasting 78 mg/dL Normal 70-100 [...] Low 1.2-2.2 Total Iron Binding Capacit 06/06/[address] [address] (315)- - Iron (Fe) 29 g/dL Low 50-170 Total Iron Binding Capacity 412 g/dL Normal 250-450 Percent Saturation 7.0 % Low 13.2-45.0 Laboratory test finding 06/06/[address] [address] (315)- - Thyroid Stimulating Hormone 2.350 uIU/ML [...] 0.1 ng/mL . Thyroglobulin measured by Munira [place] Immunometric Assay Performed at: - [address] [id number] Pole Peeler: Louis Batista MD, Phone: [phone] Performed at: - [facility] [id number] Pole Peeler: Nathalie Marie MD, Phone: [phone] 2 Thyroglobulin Antibody measu red by Munira [...] Date Location Provider Dx Diagnosis Office Visit 06/19/2020 10:15a Main Office Dyana Cardenas M.D. J03.00 Acute streptococcal tonsillitis, unspecified Z86.16 Personal history of Covid-19 Office Visit 06/05/2020 2:15p Main Office Dyana Cardenas M.D. N92.0 Excessive and frequent menstruation with regular cycle D50.9 Iron deficiency anemia, unsp ecified K59.00 Constipation, unspecified K21.9 Gastro-esophageal reflux dis ease without esophagitis Assessments Date Code Description Provider 06/19/2020 J03.00 Acute streptococcal tonsillitis, unspecified Dyana Cardenas M.D. 06/19/2020 Z86.16 Personal history of Covid-19 Ina Cardenas M.D. 06/05/2020 N92.0 Excessive and frequent menstruat ion with regular cycle Dyana Cardenas M.D. 06/05/2020 D50.9 Iron deficiency anemia, unspecif ied Dyana Cardenas M.D. 06/05/2020 K59.00 Constipation, unspecified Dyana ahmadi M.D. 06/05/2020 K21.9 Gastro-esophageal reflux disease without esophagitis Dyana Cardenas M.D. Plan of Treatment Future Appointment(s):* 06/20/2020 1:15 pm - Dyana Cardenas M.D. at Main Office * 07/06/2020 2:15 pm - Dyana Cardenas M.D. 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
--- OUTSIDE RECORDS SUMMARY | 2020-06-25 18:38 | CCD | Continuity of Care Document ---
Author Author Esperanza CARDENAS M.D. Organization Unknown Address [address] [facility] [address] [place] [address] Phone [phone] Problems Active Problems Provider Date Attention deficit [...] CPT Code Status Date Vaccine Lot # [id number] Given 10/27/2018 Tuberculosis Intradermal C55 [id number] 83529 Given 07/13/2018 Trumenba [facility] Recombinant Lipoprotein Vaccine Serogroup B [id number] 93836 Given 03/24/2018 Influenza .5 [id number] 55472 Given 03/24/2018 Gardasil 9 (Current) [id number] 63315 Given 01/07/2018 Menactra VF [id number] 83797 Given 01/07/2018 Trumenba [facility] Recombinant Lipoprotein Vaccine Serogroup B [id number] 48916 Given 05/18/2016 Influenza .5 [id number] 17200 Given 07/12/2014 Gardasil (HPV)Old One DO Not Use [id number] 27893 Given 05/02/2014 Gardasil (HPV) [facility] [id number] 01722 Given 04/02/2014 Influenza .5 [id number] 90512 Given 03/27/2013 Influenza 3Yrs And Up [id number] 03300 Given 08/24/2012 Menactra [facility] [id number] 50727 Given 03/14/2012 Influenza 3Yrs And Up [id number] 06241 Given 04/19/2011 Boostrix/Adacell 49856 Given 03/12/2011 Influenza 3Yrs And Up 43106 Given 03/14/2009 Flu Mist/ Live Virus 86749 Given 03/30/2008 Flu Mist/ Live Virus 25788 Given 12/16/2007 Hep A,Ped Dose-2 For Intramu scular Use 75395 Given 06/17/2007 Immunization Influenza (3 Yr s. & Above) 80667 Given 06/17/2007 Hep A,Ped Dose-2 For Intramu scular Use 98844 Given 12/18/2006 Varivax 49893 Given 08/22/2005 DTaP 49042 Given 08/22/2005 MMR Immunization 12932 Given 08/22/2005 IPV Polio Vaccine 24107 Given 08/15/2005 DTaP 85731 Given 05/02/2004 Immunization Influenza (3 Yr s. & Above) 63550 Given 04/14/2003 Immunization Influenza (Unde r 3 Yrs.) 21894 Given 12/22/2001 MMR Immunization 20991 Given 12/22/2001 DTaP 44459 Given 09/29/2001 Hibtiter 16074 Given 09/29/2001 Varivax 87350 Given 09/29/2001 [place] [address] Given 03/30/2001 Hep B 35138 Given 03/30/2001 Hib 46202 Given 01/16/2001 Hib 73012 Given 01/16/2001 [place] [address] Given 01/16/2001 DTaP 84933 Given 01/16/2001 IPV Polio Vaccine 04436 Given 01/16/2001 Hep B 39468 Given 01/16/2001 Comvax 0.5 ML (Combination) Hib-59024 - Hepatits B-[id number] 90651 Given 2000 Hib 12387 Given 2000 Comvax 0.5 ML (Combination) Hib-87616 - Hepatits B-[id number] 62364 Given 2000 IPV Polio Vaccine 75451 Given 2000 DTaP 61851 Given 2000 [place] [address] Given 2000 Hep B Vital Signs Date Vital Result Comment 06/14/2020 1:30pm Weight 208.00 lb Weight 94.349 kg Weight Percentile >97th 06/05/2020 2:31pm Weight 207.75 lb Weight 94.235 kg Weight Percentile >97th Results Test Acquired Date Facility Test Result H/L Range Note CBC With Differential 06/06/[address] [address] (315)- - White Blood Count 4.5 10 [...] 36.0-66.0 Lymph % 31.3 % Normal 24.0-44.0 [place] % 6.0 % High 0.0-5.0 Eos % 1.8 % Normal 0.0-3.0 Baso % 0.7 % Normal 0.0-1.0 Immature Granulocyte % 0.2 % Normal 0-3.0 Nucleated Red Blood Cell % 0.0 % Normal 0-0 Neutrophils # 2.7 10 Normal 1.5-8.5 Lymph # 1.4 10 Low 1.5-5.0 [place] # 0.3 10 Normal 0.0-0.8 Eos # 0.1 10 Normal 0.0-0.5 Baso # 0.0 10 Normal 0.0-0.2 Laboratory test finding 06/06/2020 [place] [address] (856)- - Vitamin D 1,25 Dihydroxy 49.0 pg/mL Normal 19.9-79.3 Laboratory test finding 06/06/2020 [place] [address] (581)- - TSH Receptor Assay <1.10 IU/L Normal 0.00-1.75 Thyroglob QNT Incl Thyrogl Diamond 06/06/2020 [place] [address] (149)- - Thyroglobulin Quantitative 45.7 ng/mL High 1.5-38.5 1 Thryoglobulin Antibodies (Fernando) < 1.0 IU/mL Normal 0.0-0.9 2 PT & Aptt 06/06/2020 [facility] nter [address] [place] [address] (532)- - Prothrombin Time 13.3 seconds Normal 12.5-14.3 Inr 0.99 Normal 3 Partial Thromboplastin Time 32.7 seconds Normal 24.2-38.5 Platelet Function Analysis 06/06/2020 [place] [address] (458)- - Collagen Epinephrine 92 seconds Normal 74-162 4 Comprehensive Metabolic Profil 06/06/2020 [place] [address] (885)- - Glucose, Fasting 78 mg/dL Normal 70-100 [...] Low 1.2-2.2 Total Iron Binding Capacit 06/06/[address] [address] (315)- - Iron (Fe) 29 g/dL Low 50-170 Total Iron Binding Capacity 412 g/dL Normal 250-450 Percent Saturation 7.0 % Low 13.2-45.0 Laboratory test finding 06/06/[address] [address] (315)- - Thyroid Stimulating Hormone 2.350 uIU/ML [...] 0.1 ng/mL . Thyroglobulin measured by Munira [place] Immunometric Assay Performed at: - [address] [id number] Slab Depiler Operator: Louis Batista MD, Phone: [phone] Performed at: - [facility] [id number] Slab Depiler Operator: Nathalie Marie MD, Phone: [phone] 2 Thyroglobulin Antibody measu red by Munira [...] Dyana Cardenas M.D.* J03.00 Acute streptococcal tonsillitis, unspecified * Z86.16 Personal history of Covid-19* Comments:* awating confirmatory PCR Functional Status Description No Information Available Mental Status Description No Information Available Referrals Description No Information Available
--- OUTSIDE RECORDS SUMMARY | 2020-06-25 18:38 | CCD | Continuity of Care Document ---
Author Author Esperanza CARDENAS M.D. Organization Unknown Address [address] [facility] [address] [place] [address] Phone [phone] Problems Active Problems Provider Date Attention deficit [...] CPT Code Status Date Vaccine Lot # 65942 Given 10/27/2018 Tuberculosis Intradermal C55 [id number] 45498 Given 07/13/2018 Trumenba [facility] Recombinant Lipoprotein Vaccine Serogroup B [id number] 60266 Given 03/24/2018 Influenza .5 [id number] 51610 Given 03/24/2018 Gardasil 9 (Current) [id number] 97462 Given 01/07/2018 Menactra VF [id number] 72769 Given 01/07/2018 Trumenba [facility] Recombinant Lipoprotein Vaccine Serogroup B [id number] 24644 Given 05/18/2016 Influenza .5 [id number] 18823 Given 07/12/2014 Gardasil (HPV)Old One DO Not Use [id number] 67609 Given 05/02/2014 Gardasil (HPV) [facility] [id number] 36512 Given 04/02/2014 Influenza .5 [id number] 43993 Given 03/27/2013 Influenza 3Yrs And Up [id number] 59215 Given 08/24/2012 Menactra [facility] [id number] 98268 Given 03/14/2012 Influenza 3Yrs And Up [id number] 18646 Given 04/19/2011 Boostrix/Adacell 30463 Given 03/12/2011 Influenza 3Yrs And Up 98588 Given 03/14/2009 Flu Mist/ Live Virus 78947 Given 03/30/2008 Flu Mist/ Live Virus 18909 Given 12/16/2007 Hep A,Ped Dose-2 For Intramu scular Use 99016 Given 06/17/2007 Immunization Influenza (3 Yr s. & Above) 97725 Given 06/17/2007 Hep A,Ped Dose-2 For Intramu scular Use 46182 Given 12/18/2006 Varivax 78704 Given 08/22/2005 DTaP 68667 Given 08/22/2005 MMR Immunization 89546 Given 08/22/2005 IPV Polio Vaccine 43160 Given 08/15/2005 DTaP 22126 Given 05/02/2004 Immunization Influenza (3 Yr s. & Above) 29757 Given 04/14/2003 Immunization Influenza (Unde r 3 Yrs.) 14162 Given 12/22/2001 MMR Immunization 50516 Given 12/22/2001 DTaP 27545 Given 09/29/2001 Hibtiter 94434 Given 09/29/2001 Varivax 03312 Given 09/29/2001 [place] [address] Given 03/30/2001 Hep B 18933 Given 03/30/2001 Hib 71325 Given 01/16/2001 Hib 61486 Given 01/16/2001 [place] [address] Given 01/16/2001 DTaP 34660 Given 01/16/2001 IPV Polio Vaccine 44071 Given 01/16/2001 Hep B 63120 Given 01/16/2001 Comvax 0.5 ML (Combination) Hib-50409 - Hepatits B-64501 48834 Given 2000 Hib 58764 Given 2000 Comvax 0.5 ML (Combination) Hib-27945 - Hepatits B-56419 04992 Given 2000 IPV Polio Vaccine 57287 Given 2000 DTaP 99175 Given 2000 [place] [address] Given 2000 Hep B Vital Signs Date Vital Result Comment 06/14/2020 1:30pm Weight 208.00 lb Weight 94.349 kg Weight Percentile >97th 06/05/2020 2:31pm Weight 207.75 lb Weight 94.235 kg Weight Percentile >97th Results Test Acquired Date Facility Test Result H/L Range Note CBC With Differential 06/06/[address] [address] (315)- - White Blood Count 4.5 10 [...] 36.0-66.0 Lymph % 31.3 % Normal 24.0-44.0 [place] % 6.0 % High 0.0-5.0 Eos % 1.8 % Normal 0.0-3.0 Baso % 0.7 % Normal 0.0-1.0 Immature Granulocyte % 0.2 % Normal 0-3.0 Nucleated Red Blood Cell % 0.0 % Normal 0-0 Neutrophils # 2.7 10 Normal 1.5-8.5 Lymph # 1.4 10 Low 1.5-5.0 [place] # 0.3 10 Normal 0.0-0.8 Eos # 0.1 10 Normal 0.0-0.5 Baso # 0.0 10 Normal 0.0-0.2 Laboratory test finding 06/06/2020 [place] [address] (143)- - Vitamin D 1,25 Dihydroxy 49.0 pg/mL Normal 19.9-79.3 Laboratory test finding 06/06/2020 [place] [address] (273)- - TSH Receptor Assay <1.10 IU/L Normal 0.00-1.75 Thyroglob QNT Incl Thyrogl Diamond 06/06/2020 [place] [address] (377)- - Thyroglobulin Quantitative 45.7 ng/mL High 1.5-38.5 1 Thryoglobulin Antibodies (Fernando) < 1.0 IU/mL Normal 0.0-0.9 2 PT & Aptt 06/06/2020 [facility] nter [address] [place] [address] (214)- - Prothrombin Time 13.3 seconds Normal 12.5-14.3 Inr 0.99 Normal 3 Partial Thromboplastin Time 32.7 seconds Normal 24.2-38.5 Platelet Function Analysis 06/06/2020 [place] [address] (018)- - Collagen Epinephrine 92 seconds Normal 74-162 4 Comprehensive Metabolic Profil 06/06/2020 [place] [address] (480)- - Glucose, Fasting 78 mg/dL Normal 70-100 [...] Low 1.2-2.2 Total Iron Binding Capacit 06/06/[address] [address] (315)- - Iron (Fe) 29 g/dL Low 50-170 Total Iron Binding Capacity 412 g/dL Normal 250-450 Percent Saturation 7.0 % Low 13.2-45.0 Laboratory test finding 06/06/[address] [address] (315)- - Thyroid Stimulating Hormone 2.350 uIU/ML [...] 0.1 ng/mL . Thyroglobulin measured by Munira [place] Immunometric Assay Performed at: - [address] [id number] Director Of Health Education: Louis Batista MD, Phone: [phone] Performed at: - [facility] [id number] Director Of Health Education: Nathalie Marie MD, Phone: [phone] 2 Thyroglobulin Antibody measu red by Munira [...]
--- OUTSIDE RECORDS SUMMARY | 2020-06-25 18:39 | CCD | Continuity of Care Document ---
Author Author Esperanza CARDENAS M.D. Organization Unknown Address [address] [facility] [address] [place] [address] Phone [phone] Problems Active Problems Provider Date Attention deficit hyperactivity disorder Nicole Triana MD Onset: 08/24/2012 Generalized anxiety disorder Nicole Triana MD Onset: 08/10 Social History Type Date Description Comments Sex Unknown Tobacco Use Start: Unknown Patient has never smoked Allergies, Adverse Reactions, Alerts Description No Known Drug Allergies Medications Active Medications SIG Qnty Indications Ordering Provide r Date Miralax 17GM/Scoop Powder 1 capful by mouth [...] CPT Code Status Date Vaccine Lot # 77962 Given 10/27/2018 Tuberculosis Intradermal C55 [id number] 96091 Given 07/13/2018 Tr[facility] Recombinant Lipoprotein Vaccine Serogroup B [id number] 11695 Given 03/24/2018 Influenza .5 [id number] 67952 Given 03/24/2018 Gardasil 9 (Current) [id number] 44113 Given 01/07/[address] [facility] [id number] 37479 Given 01/07/[address] [facility] Recombinant Lipoprotein Vaccine Serogroup B [id number] 69790 Given 05/18/2016 Influenza .5 [id number] 33189 Given 07/12/2014 Gardasil (HPV)Old One DO Not Use [id number] 93042 Given 05/02/2014 Gardasil (HPV) [facility] [id number] 31892 Given 04/02/2014 Influenza .5 [id number] 70526 Given 03/27/2013 Influenza 3Yrs And Up [id number] 17498 Given 08/24/2012 Menactra [facility] [id number] 57601 Given 03/14/2012 Influenza 3Yrs And Up [id number] 82866 Given 04/19/2011 Boostrix/Adacell 47839 Given 03/12/2011 Influenza 3Yrs And Up 77444 Given 03/14/2009 Flu Mist/ Live Virus 82456 Given 03/30/2008 Flu Mist/ Live Virus 64932 Given 12/16/2007 Hep A,Ped Dose-2 For Intramu scular Use 08142 Given 06/17/2007 Immunization Influenza (3 Yr s. & Above) 62218 Given 06/17/2007 Hep A,Ped Dose-2 For Intramu scular Use 35745 Given 12/18/2006 Varivax 70926 Given 08/22/2005 DTaP 60530 Given 08/22/2005 MMR Immunization 66676 Given 08/22/2005 IPV Polio Vaccine 17225 Given 08/15/2005 DTaP 08675 Given 05/02/2004 Immunization Influenza (3 Yr s. & Above) 19214 Given 04/14/2003 Immunization Influenza (Unde r 3 Yrs.) 28375 Given 12/22/2001 MMR Immunization 20120 Given 12/22/2001 DTaP 44755 Given 09/29/2001 Hibtiter 32640 Given 09/29/2001 Varivax 78837 Given 09/29/2001 [place] [address] Given 03/30/2001 Hep B 78707 Given 03/30/2001 Hib 22372 Given 01/16/2001 Hib 99113 Given 01/16/2001 [place] [address] Given 01/16/2001 DTaP 98580 Given 01/16/2001 IPV Polio Vaccine 48252 Given 01/16/2001 Hep B 59067 Given 01/16/2001 Comvax 0.5 ML (Combination) Hib-56980 - Hepatits B-[id number] 67327 Given 2000 Hib 94405 Given 2000 Comvax 0.5 ML (Combination) Hib-03878 - Hepatits B-[id number] 41883 Given 2000 IPV Polio Vaccine 28445 Given 2000 DTaP 75019 Given 2000 [place] [address] Given 2000 Hep B Vital Signs Date Vital Result Comment 06/05/2020 2:31pm Weight 207.75 lb Weight 94.235 kg Weight Percentile >97th 10/27/2018 9:27am Weight 238.50 lb Weight 108.184 kg Body Temperature 97.3 F Weight Percentile >97th Results Description No Information Available Procedures Description No Information Available Medical Devices [...] menstruation with regular cycle* Comments:* 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 titrate to effect. * New Xrays:* Abdomen, Single Anteroposterior View, Ordered: 06/05/20 * Comments:* Increase Fiber Increase Fluids Table to toilet routine * K21.9 Gastro-esophageal reflux disease without esophagitis* New Medication:* Omeprazole 20 mg - 1 by mouth every day Functional Status Description No Information Available Mental Status Description No Information Available Referrals Description No Information Available
--- OUTSIDE RECORDS SUMMARY | 2020-06-25 18:39 | CCD | Continuity of Care Document ---
Author Author Esperanza CARDENAS M.D. Organization Unknown Address [address] [facility] [address] [place] [address] Phone [phone] Problems Active Problems Provider Date Attention deficit [...] CPT Code Status Date Vaccine Lot # 09345 Given 10/27/2018 Tuberculosis Intradermal C55 [id number] 70689 Given 07/13/2018 [facility] Recombinant Lipoprotein Vaccine Serogroup B [id number] 36326 Given 03/24/2018 Influenza .5 [id number] 03161 Given 03/24/2018 Gardasil 9 (Current) [id number] 80605 Given 01/07/2018 Menactra [facility] [id number] 47633 Given 01/07/2018 Trumenba [facility] Recombinant Lipoprotein Vaccine Serogroup B [id number] 36990 Given 05/18/2016 Influenza .5 [id number] 04463 Given 07/12/2014 Gardasil (HPV)Old One DO Not Use [id number] 93482 Given 05/02/2014 Gardasil (HPV) [facility] [id number] 09772 Given 04/02/2014 Influenza .5 [id number] 76739 Given 03/27/2013 Influenza 3Yrs And Up [id number] 35562 Given 08/24/2012 Menactra [facility] [id number] 93676 Given 03/14/2012 Influenza 3Yrs And Up [id number] 14124 Given 04/19/2011 Boostrix/Adacell 43007 Given 03/12/2011 Influenza 3Yrs And Up 77720 Given 03/14/2009 Flu Mist/ Live Virus 81346 Given 03/30/2008 Flu Mist/ Live Virus 78849 Given 12/16/2007 Hep A,Ped Dose-2 For Intramu scular Use 97405 Given 06/17/2007 Immunization Influenza (3 Yr s. & Above) 90847 Given 06/17/2007 Hep A,Ped Dose-2 For Intramu scular Use 96216 Given 12/18/2006 Varivax 44343 Given 08/22/2005 DTaP 66660 Given 08/22/2005 MMR Immunization 42856 Given 08/22/2005 IPV Polio Vaccine 76994 Given 08/15/2005 DTaP 64223 Given 05/02/2004 Immunization Influenza (3 Yr s. & Above) 03540 Given 04/14/2003 Immunization Influenza (Unde r 3 Yrs.) 25683 Given 12/22/2001 MMR Immunization 05978 Given 12/22/2001 DTaP 82267 Given 09/29/2001 Hibtiter 19975 Given 09/29/2001 Varivax 96436 Given 09/29/2001 [place] [address] Given 03/30/2001 Hep B 36152 Given 03/30/2001 Hib 59227 Given 01/16/2001 Hib 70577 Given 01/16/2001 [place] [address] Given 01/16/2001 DTaP 74340 Given 01/16/2001 IPV Polio Vaccine 49020 Given 01/16/2001 Hep B 08867 Given 01/16/2001 Comvax 0.5 ML (Combination) Hib-63253 - Hepatits B-[id number] 39188 Given 2000 Hib 34069 Given 2000 Comvax 0.5 ML (Combination) Hib-89781 - Hepatits B-66479 60497 Given 2000 IPV Polio Vaccine 80384 Given 2000 DTaP 57804 Given 2000 [place] [address] Given 2000 Hep B Vital Signs Date [...] menstruation with regular cycle* Comments:* 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
--- OUTSIDE RECORDS SUMMARY | 2020-06-25 18:39 | CCD ---
Author Author [facility] Organization [facility] Address Unknown Phone Unavailable Care Team Providers Care Infrastructure Technician Name Role Phone Alexsander LUJAN MD Unavailable Unavailable VANVALAlexsander LACKEY MD Unavailable Unavailable VANVALKENAlexsander PAL MD Unavailable Unavailable VANVALKENAlexsander PAL MD Unavailable Unavailable VANVALKENAlexsander PAL MD Unavailable Unavailable VANVALKENAlexsander PAL MD Unavailable Unavailable VANVALKENAlexsander PAL MD Unavailable Unavailable VANVALKENBURGAlexsander MD Unavailable Unavailable VANVALKENBURGAlexsander MD Unavailable Unavailable VANVALKENBURGAlexsander MD Unavailable Unavailable VANVALKENBURGAlexsander MD Unavailable Unavailable VANVALKENAlexsander PAL MD Unavailable Unavailable VANVALKENAlexsander PAL MD Unavailable Unavailable VANVALKENAlexsander PAL MD Unavailable Unavailable VANVALKENBURGAlexsander MD Unavailable Unavailable VANVALKENBURGAlexsander MD Unavailable Unavailable VANVALKENAlexsander PAL MD Unavailable Unavailable VANVALAlexsander LACKEY MD Unavailable Unavailable VANVALKENAlexsander PAL MD Unavailable Unavailable VANVALKENAlexsander PAL MD Unavailable Unavailable VANVALKENBURGAlexsander MD Unavailable Unavailable VANVALKENAlexsander PAL MD Unavailable Unavailable NOYVALAlexsander LACKEY MD Unavailable Unavailable NOYVALAlexsander LACKEY MD Unavailable Unavailable NOYVALAlexsander LACKEY MD Unavailable Unavailable VANVALAlexsander LACKEY MD Unavailable Unavailable NOYVALAlexsander LACKEY MD Unavailable Unavailable VANVALKENAlexsander PAL MD Unavailable Unavailable NOYVALAlexsander LACKEY MD Unavailable Unavailable NOYVALAlexsander LACKEY MD Unavailable Unavailable NOYVALAlexsander LACKEY MD Unavailable Unavailable VANVALAlexsander LACKEY MD Unavailable Unavailable VANVALKENBURGAlexsander MD Unavailable Unavailable VANVALKENBURGAlexsander MD Unavailable Unavailable VANVALKENBURGAlexsander MD Unavailable Unavailable VANVALKENBURGAlexsander MD Unavailable Unavailable VANVALKENBURGAlexsander MD Unavailable Unavailable VANVALKENBURGAlexsander MD Unavailable Unavailable VANVALKENBURGAlexsander MD Unavailable Unavailable VANVALKENBURGAlexsander MD Unavailable Unavailable VANVALKENBURGAlexsander MD Unavailable Unavailable VANVALKENBURGAlexsander MD Unavailable Unavailable VANVALKENBURGAlexsander MD Unavailable Unavailable VANVALKENBURGAlexsander MD Unavailable Unavailable VANVALKENBURGAlexsander MD Unavailable Unavailable VANVALKENBURGAlexsander MD Unavailable Unavailable VANVALKENAlexsander PAL MD Unavailable Unavailable VANVALKENBURGAlexsander MD Unavailable Unavailable VANVALKENBURGAlexsander MD Unavailable Unavailable VANVALKENAlexsander PAL MD Unavailable Unavailable VANVALKENAlexsander PAL MD Unavailable Unavailable VANVALKENAlexsander PAL MD Unavailable Unavailable VANVALKENAlexsander PAL MD Unavailable Unavailable VANVALKENAlexsander PAL MD Unavailable Unavailable VANVALKENAlexsander PAL MD Unavailable Unavailable VANVALKENAlexsander PAL MD Unavailable Unavailable VANVALKENAlexsander PAL MD Unavailable Unavailable VANVALKENAlexsander PAL MD Unavailable Unavailable VANVALKENAlexsander PAL MD Unavailable Unavailable VANVALKENAlexsander PAL MD Unavailable Unavailable VANVALKENAlexsander PAL MD Unavailable Unavailable VANVALKENAlexsander PAL MD Unavailable Unavailable VANVALKENAlexsander PAL MD Unavailable Unavailable VANVALKENAlexsander PAL MD Unavailable Unavailable Marisela CARDENAS MD Unavailable Unavailable Marisela CARDENAS MD Unavailable Unavailable Marisela CARDENAS MD Unavailable Unavailable Marisela CARDENAS MD Unavailable Unavailable Marisela CARDENAS MD Unavailable Unavailable Marisela CARDENAS MD Unavailable Unavailable Marisela CARDENAS MD Unavailable Unavailable Marisela CARDENAS MD Unavailable Unavailable Marisela CARDENAS MD Unavailable Unavailable Marisela CARDENAS MD Unavailable Unavailable Marisela CARDENAS MD Unavailable Unavailable Marisela CARDENAS MD Unavailable Unavailable Marisela CARDENAS MD Unavailable Unavailable Marisela CARDENAS MD Unavailable Unavailable Marisela CARDENAS MD Unavailable Unavailable Marisela CARDENAS MD Unavailable Unavailable Marisela CARDENAS MD Unavailable Unavailable Marisela CARDENAS MD Unavailable Unavailable Marisela CARDENAS MD Unavailable Unavailable Marisela CARDENAS MD Unavailable Unavailable Marisela CARDENAS MD Unavailable Unavailable Marisela CARDENAS MD Unavailable Unavailable Marisela CARDENAS MD Unavailable Unavailable Marisela CARDENAS MD Unavailable Unavailable Marisela CARDENAS MD Unavailable Unavailable Marisela CARDENAS MD Unavailable Unavailable Marisela CARDENAS MD Unavailable Unavailable Marisela CARDENAS MD Unavailable Unavailable Marisela CARDENAS MD Unavailable Unavailable Marisela CARDENAS MD Unavailable Unavailable Marisela CARDENAS MD Unavailable Unavailable Marisela CARDENAS MD Unavailable Unavailable Marisela CARDENAS MD Unavailable Unavailable Marisela CARDENAS MD Unavailable Unavailable Marisela CARDENAS MD Unavailable Unavailable Feola, T Shraddha PA Unavailable Unavailable Feola, T Shraddha PA Unavailable Unavailable Feola, T Shraddha PA Unavailable Unavailable Feola, T Shraddha PA Unavailable Unavailable Feola, T Shraddha PA Unavailable Unavailable Feola, T Shraddha PA Unavailable Unavailable Feola, T Shraddha PA Unavailable Unavailable Feola, T Shraddha PA Unavailable Unavailable Feola, T Shraddha PA Unavailable Unavailable Feola, T Shraddha PA Unavailable Unavailable Feola, T Shraddha PA Unavailable Unavailable Feola, T Shraddha PA Unavailable Unavailable Feola, T Shraddha PA Unavailable Unavailable Feola, T Shraddha PA Unavailable Unavailable Feola, T Shraddha PA Unavailable Unavailable Feola, T Shraddha PA Unavailable Unavailable Feola, T Shraddha PA Unavailable Unavailable Feola, T Shraddha PA Unavailable Unavailable Feola, T Shraddha PA Unavailable Unavailable Feola, T Shraddha PA Unavailable Unavailable Feola, T Shraddha PA Unavailable Unavailable Feola, T Shraddha PA Unavailable Unavailable Feola, T Shraddha PA Unavailable Unavailable Feola, T Shraddha PA Unavailable Unavailable Feola, T Shraddha PA Unavailable Unavailable Feola, T Shraddha PA Unavailable Unavailable Feola, T Shraddha PA Unavailable Unavailable Feola, T Shraddha PA Unavailable Unavailable Feola, T Shraddha PA Unavailable Unavailable Feola, T Shraddha PA Unavailable Unavailable Feola, T Shraddha PA Unavailable Unavailable Feola, T Shraddha PA Unavailable Unavailable Feola, T Shraddha PA Unavailable Unavailable Feola, T Shraddha PA Unavailable Unavailable Feola, T Shraddha PA Unavailable Unavailable Feola, T Shraddha PA Unavailable Unavailable Feola, T Shraddha PA Unavailable Unavailable Re-disclosure Warning The records that you are about to access may contain information from federally-assisted alcohol or drug abuse programs. If such information is present, then the following federally mandated warning applies: This information has been disclosed to you from records protected by federal confidentiality rules (42 CFR part 2). The federal rules prohibit you from making any further disclosure of this information unless further disclosure is expressly permitted by the written consent of the person to whom it pertains or as otherwise permitted by 42 CFR part 2. A general authorization for the release of medical or other information is NOT sufficient for this purpose. The Federal rules restrict any use of the information to criminally investigate or prosecute any alcohol or drug abuse patient.The records that you are about to access may contain highly sensitive health information, the redisclosure of which is protected by Article 27-F of the [facility] Public Health law. If you continue you may have access to information: Regarding HIV / AIDS; Provided by facilities licensed or operated by the [facility] Office of Mental Health; or Provided by the [facility] Office for People With Developmental Disabilities. If such information is present, then the following [facility] mandated warning applies: This information has been disclosed to you from confidential records which are protected by state law. State law prohibits you from making any further disclosure of this information without the specific written consent of the person to whom it pertains, or as otherwise permitted by law. Any unauthorized further disclosure in violation of state law may result in a fine or long term sentence or both. A general authorization for the release of medical or other information is NOT sufficient authorization for further disc losure. Allergies and Adverse Reactions Type Description Substance Reaction Status Data Source(s ) Drug Class NO KNOWN ALLERGIES NO KNOWN ALLERGIES [facility] Family History Family Member Name Family Member Gender Family Member Status Date o f Status Description Data Source(s) Unknown Unknown Problem [facility] ([facility], [facility]) Encounters Encounter Providers Location Date Indications Data Source(s ) Office Visit Attender: DYANA CARDENAS MD Main Office 06/20/2020 02:00:00 PM EST [facility] ([facility]) Office Visit Attender: DYANA CARDENAS MD Main Office 06/19/2020 09:15:00 AM EST [facility] ([facility]) O Attender: Shraddha PEREZ 021 12:30:43 PM EST - 06/17/2020 01:19:18 PM EST [facility] ([facility] ) Office Visit Attender: DYANA CARDENAS MD Main Office 06/05/2020 01:15:00 PM EST [facility] ([facility]) Outpatient Attender: BROOKLYNN LUJAN MD 11/10/2019 12: 00:[address] [facility] Medications Medication Brand Name Start Date Product Form Dose Route Admi nistrative Instructions Pharmacy Instructions Status Indications Reaction Description Data Source(s) 875-125 mg 06/17/2020 12:00:00 AM EST tablet 20 TAKE ONE TABLET BY MOUTH TWO TIMES A DAY FOR 10 DAYS TAKE ONE TABLET BY MOUTH TWO TIMES A DAY FOR 10 DAYS SOLD: 06/17/2020 [facility] 5 mg 06/16/2020 12:00:00 AM EST tablet,delayed release (DR/EC) 10 TAKE ONE TABLET BY MOUTH AT NOON, AFTER TAKING MIRALAX IN THE MORNING FOR 10 DAYS TAKE ONE TABLET BY MOUTH AT NOON, AFTER TAKING MIRALAX IN THE MORNING FOR 10 DAYS SOLD: 06/16/2020 [facility] 17 gram 06/16/2020 12:00:00 AM EST powder in packet 20 MIX 2 PACKETS IN 2 GLASSES OF 4-8 OUNCES EACH OF BEVERAGE AND TAKE BY MOUTH EVERY MORNING FOR 10 DAYS FOR CONSTIPATION DIRECTED MIX 2 PACKETS IN 2 GLASSES OF 4-8 OUNCES EACH OF BEVERAGE AND TAKE BY MOUTH EVERY MORNING FOR 10 DAYS FOR CONSTIPATION DIRECTED SOLD: 06/16/2020 [facility] Bisacodyl 5 MG Delayed Release Oral Tablet Bisacodyl Ec 06/12/2020 12:00:00 AM EST ORAL active [facility] ([facility]) Glycerin 2000 MG Rectal Suppository Glycerin (Adult) 06/12/2020 12:00:00 AM EST active [facility] ( [facility]) 5 mg 06/12/2020 12:00:00 AM EST tablet,delayed release (DR/EC) 6 TAKE ONE TABLET BY MOUTH TWICE A DAY FOR 3 DAYS TAKE ONE TABLET BY MOUTH TWICE A DAY FOR 3 DAYS SOLD: 06/12/2020 [facility] 324 mg (65 mg iron) 06/07/2020 12:00:00 AM EST tablet, delayed release (DR/EC) 30 TAKE ONE TABLET BY MOUTH EVERY DAY TAKE ONE TABL ET BY MOUTH EVERY DAY SOLD: 06/08/2020 [facility] 20 mg 06/06/2020 12:00:00 AM EST capsule,delayed release (DR/EC) 30 TAKE ONE CAPSULE BY MOUTH EVERY DAY TAKE ONE CAPSULE BY MOUTH EVERY DAY SOLD: 06/06/2020 [facility] 17 gram/dose 06/06/2020 12:00:00 AM EST powder 238 MIX 1 CAPFUL WITH FOOD AND TAKE BY MOUTH DAILY, TITRATE TO EFFECT MIX 1 CAPFUL WITH FOOD AND TAKE BY MOUTH DAILY, TITRATE TO EFFECT SOLD: 06/06/2020 [facility] ferrous sulfate 325 MG Delayed Release Oral Tablet Ferrous S ulfate 06/06/2020 12:00:00 AM EST ORAL active M [facility] ([facility]) Omeprazole 20 MG Delayed Release Oral Capsule Omeprazole 06/05/2020 12:00:00 AM EST ORAL active [facility] ([facility]) POLYETHYLENE GLYCOL 3350 142 MG/ML Oral Solution [Miralax] M iralax 06/05/2020 12:00:00 AM EST ORAL active [facility] ([facility]) 500 mg 02/02/2020 12:00:00 AM EDT capsule 21 TAKE ONE CAPSULE BY MOUTH EVERY 8 HOURS UNTIL GONE TAKE ONE CAPSULE BY MOUTH EVERY 8 HOURS UNTIL GONE PAPI [facility] 0.12 % 01/27/2020 12:00:00 AM EDT mouthwash 473 RINSE 1 CAPFUL BY MOUTH FOR 30 SECONDS AND SPIT IN THE MORNING AND EVENING AFTER TOOTHBRUSHING FOR 10 DAYS. DO NOT SWALLOW RINSE 1 CAPFUL BY MOUTH FOR 30 SECONDS A ND SPIT IN THE MORNING AND EVENING AFTER TOOTHBRUSHING FOR 10 DAYS. DO NOT SWALLOW SOLD: 01/28/2020 [facility] 4 mg 01/27/2020 12:00:00 AM EDT tablets,dose pack 21 TAKE BY MOUTH DIRECTED TAKE BY MOUTH DIRECTED SOLD: 01/28/2020 [facility] Insurance Providers Payer name Policy type / Coverage type Policy ID Covered alliance party ID Covered alliance party's relationship to corrales Policy Corrales Plan Information [facility] [id number] SP [id number] [facility] Health Care 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 [id number] Self [id number] [facility] HEALTH CARE O [id number] S [id number] [facility] I [id number] Self [id number] [facility] I [id number] Self [id number] [employer] [place] Commercial [id number] Family Dependen t [id number] [facility]) Commercial [id number] Self [id number] MVP [facility] Commercial [id number] Self [id number] [facility]([facility]) Medicaid [id number] Self [id number] MVP I [id number] Self [id number] [employer] [place] Commercial [id number] Family Dependen t [id number] [facility]) Commercial [id number] Self [id number] MVP [facility] Commercial [id number] Self [id number] [employer] [place] Commercial [id number] Family Dependen t [id number] [facility]) Commercial [id number] Self [id number] [facility] [id number] Self [id number] MVP Commercial [id number] Self [id number] Commercial [id number] Self [id number] MVP I [id number] Self [id number] [facility] [id number] S [id number] MVP HEALTHCARE [id number] S [id number] MEDICAID [id number] S [id number] [facility] Commercial [id number] Self [id number] Pupil Benefit Plan Commercial [facility] Commercial [id number] Self [id number] [employer] [place] Commercial [id number] Family Dependen t [id number] [facility]) Commercial [id number] Self [id number] [facility] [id number] Self [id number] MVP I [id number] Self [id number] MEDICAID M [id number] Self [id number] MVP [id number] SP [id number] [facility] HEALTH CARE [id number] SP [id number] Pupil Benefit Plan Commercial [facility] MVP Commercial [id number] Self [id number] [employer] HEALTH CARE O [id number] S [id number] [facility] HEALTH CARE [id number] SP [id number] MVP HEALTH CARE [id number] SP [id number] [facility] [id number] SP [id number] [employer] [place] Commercial [id number] Family Dependen t [id number] United/Community(VFC) Commercial [id number] Self [id number] [employer] [place] Commercial [id number] Family Dependen t [id number] United/Community(VFC) Commercial [id number] Self [id number] [employer] COMMUNITY PLAN [facility] [id number] SP [id number] Pupil Benefit Plan Commercial [facility] Self [facility] Health Maintenance Organization (O) [id number] Self [id number] [employer] [place] Commercial [id number] Family Dependen t [id number] United/Community(VFC) Commercial [id number] Self [id number] [employer] [place] Commercial [id number] Family Dependen t [id number] [place](VFC) Commercial [id number] Self [id number] [facility](MCAID) O [id number] S [id number] [employer] [place] Commercial [id number] Family Dependen t [id number] United/Community(VFC) Commercial [id number] Self [id number] [employer] COMMUNITY PLAN [facility] [id number] SP [id number] [facility] Health Maintenance Organization (O) [id number] Self [id number] [employer] [place] Commercial [id number] Family Dependen t [id number] United/Community(VFC) Commercial [id number] Self [id number] [employer] [place] Commercial [id number] Family Dependen t [id number] [place]/[facility](VFC) Commercial [id number] Self [id number] [facility] Health Maintenance Organization (O) [phone] [id number] Self [id number] [employer] [place] Commercial [id number] Family Dependen t [id number] [place]/[facility](VFC) Commercial [id number] Self [id number] [employer] [place] Commercial [id number] Family Dependen t [id number] [place](VFC) Commercial [id number] Self [id number] [facility] Health Maintenance Organization (HMO) [id number] Self [id number] [facility] [id number] SP [id number] [employer] [place] Commercial [id number] Family Dependen t [id number] [facility](C) Commercial [id number] Self [id number] BCBS/[employer] Medigap Part B [id number] Family Dependent [id number] [facility]/Community [facility] Health Maintenance Organization (HMO) [id number] Self [id number] BCBS/[employer] Commercial [id number] Family Dependent [id number] EXCELLUS H [id number] Child [id number] MEDICAID [id number] SP [id number] BCBS [place] PPO 302/307 [id number] [id number] Self Pay P na S na BCBS/[employer] Commercial Family Dependent D EBS RMSCO O [id number] P [id number] [facility](MCAID) P [id number] S [id number] Medicaid Dental S [id number] S [id number] D Managed Care [facility] P [id number] S [id number] HMO BLUE P [id number] S [id number] P UNAVAILABLE UNAVAILA BLE D [facility] P [id number] S [id number] D Managed Care [facility] O [id number] S [id number] Medicaid O [id number] S [id number] BLUE [place] PLAN [id number] SP [id number] Results ID Date Data Source [id number] 06/20/2020 03:38:00 PM EST [facility] Name Value Range Interpretation Code Description Data Re rce(s) Supporting Document(s) SARS coronavirus 2 RNA Not Detected [facility] [place] This lab was ordered by [facility] and reported by [email or web address]. ID Date Data Source [id number] 06/20/2020 03:38:00 PM EST [facility] ([facility]) Name Value Range Interpretation Code Description Data Re rce(s) Supporting Document(s) Coronavirus 2019 Nasopharygeal Laboratory test result [facility] ([facility]) This nucleic acid amplification test was developed and its performance characteristics determined by [facility]. Nucleic acid amplification tests include RT- PCR [...] detected) result in this assay. Performed at: [facility] [address] [facility], [place], [place] [id number] [employer] Coach: Lashell Whaley PhD, Phone: [phone] Not Detected ID Date Data Source [id number] 06/17/2020 12:00:00 AM EST [facility] Name Value Range Interpretation Code Description Data Re rce(s) Supporting Document(s) SARS coronavirus 2 RNA [Presence] in Res piratory specimen by LUZ with probe detection NEGATIVE [facility] This lab was ordered by Jacky Andrews and reported by [facility]. ID Date Data Source [id number] 06/17/2020 12:00:00 AM EST [facility] Name Value Range Interpretation Code Description Data Re rce(s) Supporting Document(s) Carestart Rapid COVID Antigen Test Negative [facility] This lab was reported by [facility]. ID Date Data Source [id number] 06/06/2020 09:18:00 AM EST [facility] ([facility]) Name Value Range Interpretation Code Description Data Re rce(s) Supporting Document(s) Red Blood Count 4.39 10 4.00-5.40 [facility] ([facility]) White Blood Count 4.5 10 4.0-10.0 [facility] ([facility]) Hematocrit 37.3 % 36.0-47.0 [facility] Hemoglobin 11.9 g/dL 12.0-15.5 Below low normal [facility] ([facility]) Mean Corpuscular Volume 85.0 fl 80.0-96.0 [facility] ([facility]) Mean Corpuscular Hemoglobin 27.1 pg 27.0-33.0 [facility] ([facility]) Mean Corpuscular HGB Conc 31.9 g/dL 32.0-36.5 Below low normal [facility] ([facility]) Neutrophils % 60.0 % 36.0-66.0 [facility] ([facility]) Platelet Count, Automated 320 10 150-450 MEDE NT ([facility]) Red Cell Distribution Width 13.7 % 11.5-14.5 [facility] ([facility]) Eos % 1.8 % 0.0-3.0 [facility] Lamb % 6.0 % 0.0-5.0 Above high normal [facility] ([facility]) Lymph % 31.3 % 24.0-44.0 [facility]) Immature Granulocyte % 0.2 % 0-3.0 [facility] ([facility]) Baso % 0.7 % 0.0-1.0 [facility]) Nucleated Red Blood Cell % 0.0 % 0-0 MED ENT ([facility]) Lymph # 1.4 10 1.5-5.0 Below low normal [facility] ([facility]) Lamb # 0.3 10 0.0-0.8 [facility] Neutrophils # 2.7 10 1.5-8.5 [facility] ([facility]) Eos # 0.1 10 0.0-0.5 [facility] Baso # 0.0 10 0.0-0.2 [facility] ID Date Data Source [id number] 06/06/2020 09:18:00 AM EST [facility] ([facility]) Name Value Range Interpretation Code Description Data Re rce(s) Supporting Document(s) Thyroglobulin Quantitative 45.7 ng/mL 1.5-38.5 Above high normal [facility] ([facility]) . According to the National Academy of [...] 0.1 ng/mL . Thyroglobulin measured by Munira Anabelle Immunometric Assay Performed at: - [facility] [address] [id number] [employer] Tenn[employer] Coach: Louis Batista MD, Phone: [phone] Performed at: - [facility] [address] [id number] [employer] Tenn[employer] Coach: Nathalie Marie MD, Phone: [phone] Thryoglobulin Antibodies ([place]) Laboratory test result 0.0-0.9 [facility] ([facility]) Thyroglobulin Antibody measured by 2d2c Anabelle Methodology ID Date Data Source [id number] 06/06/2020 09:18:00 AM EST [facility] ([facility]) Name Value Range Interpretation Code Description Data Re rce(s) Supporting Document(s) Thyrotropin receptor Ab [Units/volume] in Serum Laboratory t est result 0.00-1.75 [facility] ([facility]) ID Date Data Source [id number] 06/06/2020 09:18:00 AM EST [facility] ([facility]) Name Value Range Interpretation Code Description Data Re rce(s) Supporting Document(s) Calcitriol [Mass/volume] in Serum or Plasma 49.0 pg/mL 19.9-79.3 [facility] ([facility]) ID Date Data Source [id number] 06/06/2020 09:17:00 AM EST [facility] ([facility]) Name Value Range Interpretation Code Description Data Re rce(s) Supporting Document(s) Thyrotropin [Units/volume] in Serum or Plasma 2.350 uIU/ML 0.463-3.98 [facility] ([facility]) Thyroxine (T4) free [Mass/volume] in Serum or Plasma 0.97 ng/dL 0.78- 1.33 [facility] ([facility]) Cobalamin (Vitamin B12) [Mass/volume] in Serum or Plasma 513 pg/mL 2 47-911 [facility] ([facility]) VITAMIN B12 NORMAL RANGE NORMAL 247 - 911 PG/ML INDETERMINATE 211 - 246 PG/ML DEFICIENT LESS THAN 211 PG/ML Folate [Mass/volume] in Serum or Plasma 11.8 ng/mL [facility] ([facility]) FOLATE NORMAL RANGE NORMAL GREATER THAN 5.4 NG/ML INDETERMINATE 3.4-5.4 NG/ML DEFICIENT LESS THAN 3.4 NG/ML ID Date Data Source [id number] 06/06/2020 09:17:00 AM EST [facility] ([facility]) Name Value Range Interpretation Code Description Data Re rce(s) Supporting Document(s) Iron (Fe) 29 ug/dL 50-170 Below low normal MEDENT ([facility]) Percent Saturation 7.0 % 13.2-45.0 Below low normal [facility] ([facility]) Total Iron Binding Capacity 412 ug/dL 250-450 ME DENT ([facility]) ID Date Data Source [id number] 06/06/2020 09:17:00 AM EST [facility] ([facility]) Name Value Range Interpretation Code Description Data Re rce(s) Supporting Document(s) Glucose, Fasting 78 mg/dL 70-100 [facility] ([facility]) Sodium Level 140 meq/L 136-145 [facility] ([facility]) Creatinine For GFR 0.63 mg/dL 0.55-1.30 MED[facility] ([facility]) Blood Urea Nitrogen 8 mg/dL 7-18 [facility] ([facility]) Carbon Dioxide Level 31 meq/L 21-32 [facility] ( [facility] Chloride Level 106 meq/L 98-107 [facility] ([facility]) Potassium Serum 4.4 meq/L 3.5-5.1 [facility] ([facility]) Calcium Level 9.4 mg/dL 8.5-10.1 [facility] ([facility]) Ast/Sgot 63 U/L 7-37 Above high normal [facility] ([facility]) Anion Gap 3 meq/L 8-16 Below low normal [facility] ([facility]) Alkaline Phosphatase 64 U/L 45-117 [facility] ( [facility] Alt/SGPT 96 U/L 12-78 Above high normal [facility] ([facility] Total Protein 7.0 GM/DL 6.4-8.2 MED[facility] ([facility]) Bilirubin,Total 0.2 mg/dL 0.2-1.0 [facility] ([facility]) Albumin 3.7 GM/DL 3.2-5.2 MED[facility] ([facility]) Albumin/Globulin Ratio 1.1 1.2-2.2 Below low normal [facility] ([facility]) ID Date Data Source [id number] 06/06/2020 09:17:00 AM EST MED[facility] ([facility]) Name Value Range Interpretation Code Description Data Re rce(s) Supporting Document(s) Collagen Epinephrine 92 s 74-162 [facility] Results may be affected by platelet coun ts less than 150,000/mL or hematocrits less than 35%. If COL/EPI is NORMAL, COL/ADP is not performed. Result Interpretation: COL/EPI COL/ADP NORMAL NORMAL NORMAL ASA ABNORMAL NORMAL vWD ABNORMAL NORMAL GLANZMANN'S ABNORMAL ABNORMAL THROMBASTHENIA POSSIBLE DRUG ABNORMAL ABNORMAL EFFECT ID Date Data Source [id number] 06/06/2020 09:17:00 AM EST [facility] ([facility]) Name Value Range Interpretation Code Description Data Re rce(s) Supporting Document(s) [facility] 0.99 [facility] THERAPUTIC HUMAN INR VALUES INDICATIONS NORMAL RANGES PROPHYLAXIS/TREATMENT OF: VENOUS THROMBOSIS 2.0-3.0 PULMONARY EMBOLISM 2.0-3.0 PREVENTION OF SYSTEMIC EMBOLISM FROM: TISSUE HEART VALVES 2.0-3.0 ACUTE MYOCARDIAL INFARCTION 2.0-3.0 VALVULAR HEART DISEASE 2.0-3.0 ATRIAL FIBRILLATION 2.0-3.0 MECHANICAL VALVES(HIGH RISK) 2.5-3.5 RECURRENT MYOCARDIAL INFARCTION 2.5-3.5 Prothrombin Time 13.3 s 12.5-14.3 [facility] ([facility]) Partial Thromboplastin Time 32.7 s 24.2-38.5 [place] [facility] ([facility]) ID Date Data Source [id number] 06/06/2020 12:00:00 AM EST [facility] Dyana Cardenas MD Patient Name: MATTY [id number] [facility] Date of : [address] Date [facility]: [facility] [id number] Fax: [id number] EXAM: ABDOMEN AP (KUB) X-RAYCLINICAL INFORMATION: Constipation, unspecified.Comparison 05/25/2018 which was nonspecific.Gas and stool seen throughout the colon and within the rectosigmoid region. The intestinal gas pattern is non-specific. Increased stool has developedin the ascending and proximal transverse colon. The T-shaped radiodensityseen previously in the pelvis consistent with an IUD is no longer present.The organ silhouettes in so far as delineated are unremarkable. There isno evidence of free intraperitoneal air.IMPRESSION:Increased stool pattern as described above.GRISEL Rowley/Ashley you for referring GRANT WALTER to our office. Electronically Signed - JAC KHAN DO 06/06/20 15:18 Name Value Range Interpretation Code Description Data Re rce(s) Supporting Document(s) Procedure Vital Signs ID Date Data Source [id number] Name Value Range Interpretation Code Description Data Source(s) Body weight 94.349 kg 94.349 kg MED[facility] ([facility]) Body weight 208.00 [lb_av] 208.00 [lb_av] MEDEN T ([facility]) Body weight 94.235 kg 94.235 kg MED[facility] ([facility]) Body weight 207.75 [lb_av] 207.75 [lb_av] MEDEN T ([facility])
[2020-06-25 19:29] LABS: BLOOD UREA NITROGEN 12 MG/DL (7-18); CALCIUM LEVEL 9.5 MG/DL (8.5-10.1); CARBON DIOXIDE LEVEL 27 MEQ/L (21-32); CHLORIDE LEVEL 106 MEQ/L (98-107); CREATININE FOR GFR 0.64 MG/DL (0.55-1.30); GLUCOSE, FASTING 91 MG/DL (70-100); POTASSIUM SERUM 4.2 MEQ/L (3.5-5.1); SODIUM LEVEL 139 MEQ/L (136-145)
--- OUTSIDE RECORDS SUMMARY | 2020-06-25 19:45 | CCD ---
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 Name Role Phone Alexsander LUJAN MD Unavailable [...] Unavailable Unavailable Marisela CARDENAS MD Unavailable Unavailable Mariseal CARDENAS MD Unavailable Unavailable Marisela CARDENAS MD Unavailable Unavailable Marisela CARDENAS MD Unavailable Unavailable Marisela CARDENAS MD Unavailable Unavailable Marisela CARDENAS MD Unavailable Unavailable Marisela CARDENAS MD Unavailable Unavailable Marisela CARDENAS MD Unavailable Unavailable Marisela CARDENAS MD Unavailable Unavailable Marisela CARDENAS MD Unavailable Unavailable Marisela CARDENAS MD Unavailable Unavailable Feola, T Shraddha PA Unavailable Unavailable Feola, T Shradhda PA Unavailable Unavailable Feola, T Shraddha PA [...] is protected by Article 27-F of the [facility] Public Health law. If you continue you may have access to information: Regarding HIV / AIDS; Provided by facilities licensed or operated by the [facility] Office of Mental Health; or Provided by the [facility] Office for People With Developmental Disabilities. If such information is present, then the following [facility] mandated warning applies: This information has [...] law may result in a fine or usp sentence or both. A general authorization for the release of medical or other information is NOT sufficient authorization for further disc losure. Allergies and Adverse Reactions Type Description Substance Reaction Status Data Source(s ) Drug Class NO KNOWN ALLERGIES NO KNOWN ALLERGIES [facility] Family History Family Member Name Family Member Gender Family Member Status Date o f Status Description Data Source(s) Unknown Unknown Problem [facility] ([facility]) Encounters Encounter Providers Location Date Indications Data Source(s ) Office Visit Attender: DYANA CARDENAS MD Main Office 06/20/2020 02:00:00 PM EST [facility] ([facility]) Office Visit Attender: DYANA CARDENAS MD Main Office 06/19/2020 09:15:00 AM EST [facility] ([facility]) O Attender: Shraddha PEREZ 021 12:30:43 PM EST - 06/17/2020 01:19:18 PM EST [facility] ([facility] ) Office Visit Attender: DYANA CARDENAS MD Main Office 06/05/2020 01:15:00 PM EST [facility] ([facility]) Outpatient Attender: BROOKLYNN LUJAN MD 11/10/2019 12: 00:00 AM [facility] Medications Medication Brand Name Start Date Product [...] 06/12/2020 12:00:00 AM EST ORAL active [facility] ([facility]) Glycerin 2000 MG Rectal Suppository Glycerin (Adult) 06/12/2020 12:00:00 AM EST active [facility] ( [facility]) 5 mg 06/12/2020 12:00:00 AM EST [...] 12:00:00 AM EST ORAL active M EDENT ([facility]) Omeprazole 20 MG Delayed Release Oral Capsule Omeprazole 06/05/2020 12:00:00 AM EST ORAL active [facility] ([facility]) POLYETHYLENE GLYCOL 3350 142 MG/ML Oral Solution [Miralax] M iralax 06/05/2020 12:00:00 AM EST ORAL active M EDENT ([facility]) 500 mg 02/02/2020 12:00:00 AM EDT [...] type / Coverage type Policy ID Covered green party ID Covered green party's relationship to corrales Policy [place] Plan Information [facility] [id number] SP [id number] [facility] Health Care 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 [id number] Self [id number] [facility] HEALTH CARE O [id number] S [id number] [facility] I [id number] Self [id number] [facility] I [id number] Self [id number] [employer] [place] Commercial [id number] Family Dependen t [id number] [place]) Commercial [id number] Self [id number] MVP [facility] Commercial [id number] Self [id number] [employer]([facility]) Medicaid [id number] Self [id number] MVP I [id number] Self [id number] [employer] [place] Commercial [id number] Family Dependen t [id number] [place]) Commercial [id number] Self [id number] MVP [facility] Commercial [id number] Self [id number] [employer] [place] Commercial [id number] Family Dependen t [id number] [place]) Commercial [id number] Self [id number] [facility] [id number] Self [id number] MVP Commercial [id number] Self [id number] MV Commercial [id number] Self [id number] MVP I [id number] Self [id number] [facility] [id number] S [id number] MVP HEALTHCARE [id number] S [id number] MEDICAID [id number] S [id number] [facility] Commercial [id number] Self [id number] Pupil Benefit Plan Commercial [facility] Commercial [id number] Self [id number] [employer] [place] Commercial [id number] Family Dependen t [id number] [place]) Commercial [id number] Self [id number] [facility] Commercial [id number] Self [id number] MVP I [id number] Self [id number] MEDICAID M [id number] Self [id number] MVP [id number] [id number] SP [id number] [facility] HEALTH CARE [id number] SP [id number] Pupil Benefit Plan Commercial [facility] MVP Commercial [id number] Self [id number] MVP HEALTH CARE O [id number] S [id number] MVP HEALTH CARE [id number] SP [id number] MVP HEALTH CARE [id number] SP [id number] [facility] [id number] SP [id number] [employer] [place] Commercial [id number] Family Dependen t [id number] United/Community(VFC) Commercial [id number] Self [id number] [employer] [place] Commercial [id number] Family Dependen t [id number] United/Community(VFC) Commercial [id number] Self [id number] [employer] COMMUNITY PLAN [facility] [id number] SP [id number] Pupil Benefit Plan Commercial [facility] Self [facility] Health Maintenance Organization (O) [id number] Self [id number] [employer] [place] Commercial [id number] Family Dependen t [id number] United/Community(VFC) Commercial [id number] Self [id number] [employer] [place] Commercial [id number] Family Dependen t [id number] [place]/Community(VFC) Commercial [id number] Self [id number] [facility](MCAID) O [id number] S [id number] [employer] [place] Commercial [id number] Family Dependen t [id number] United/Community(VFC) Commercial [id number] Self [id number] UNHC COMMUNITY PLAN [facility] [id number] SP [id number] [facility] Health Maintenance Organization (O) [id number] Self [id number] [employer] [place] Commercial [id number] Family Dependen t [id number] United/Community(VFC) Commercial [id number] Self [id number] [employer] [place] Commercial [id number] Family Dependen t [id number] [place]/Community(VFC) Commercial [id number] Self [id number] [facility] Health Maintenance Organization (O) [phone] [id number] Self [id number] [employer] [place] Commercial [id number] Family Dependen t [id number] [place]/Community(VFC) Commercial [id number] Self [id number] [employer] [place] Commercial [id number] Family Dependen t [id number] [place]/Community(VFC) Commercial [id number] Self [id number] [facility] Health Maintenance Organization (HMO) [id number] Self [id number] [facility] [id number] SP [id number] [employer] [place] Commercial [id number] Family Dependen t [id number] [place](C) Commercial [id number] Self [id number] BCBS/[employer] Medigap Part B [id number] Family Dependent [id number] [facility]/Community [facility] Health Maintenance Organization (HMO) [id number] Self [id number] BCBS/[employer] Commercial [id number] Family Dependent [id number] EXCELLUS H [id number] Child [id number] MEDICAID [id number] SP [id number] BCBS [place] PPO 302/307 [id number] FA2 [id number] Self Pay P na S na BCBS/[employer] Commercial Family Dependent D EBS RMSCO O [id number] P [id number] [facility](MCAID) P [id number] S [id number] Medicaid Dental S [id number] S [id number] D Managed Care [facility] P [id number] S [id number] HMO BLUE P [id number] S [id number] P UNAVAILABLE UNAVAILA BLE D [facility] Healthplex P [id number] S [id number] D Managed Care [facility] O [id number] S [id number] Medicaid O [id number] S [id number] BLUE [employer] [place] PLAN [id number] SP [id number] Results ID Date Data Source [id number] 06/20/2020 03:38:00 PM EST [facility] Name Value Range Interpretation Code Description Data Re rce(s) Supporting Document(s) SARS coronavirus 2 RNA Not Detected [facility] [place] This lab was ordered by [facility] and reported by [employer] [employer]. ID Date Data Source [id number] 06/20/2020 03:38:00 PM EST MED[facility] ([facility]) Name Value Range Interpretation Code Description Data Re rce(s) Supporting Document(s) Coronavirus 2019 Nasopharygeal Laboratory test result [facility] ([facility]) This nucleic acid amplification test was developed and its performance characteristics determined by [employer]. Nucleic acid amplification tests include RT- PCR [...] detected) result in this assay. Performed at: [employer] [address], [place], [place] [id number] Snuff Box Finisher: Lashell Whaley PhD, Phone: [phone] Not Detected ID Date Data Source [id number] 06/17/2020 12:00:00 AM EST [facility] Name Value Range Interpretation Code Description Data Re rce(s) Supporting Document(s) SARS coronavirus 2 RNA [Presence] in Res piratory specimen by LUZ with probe detection NEGATIVE [facility] This lab was ordered by Jacky Andrews and reported by [facility]. ID Date Data Source [id number] 06/17/2020 12:00:00 AM EST [facility] Name Value Range Interpretation Code Description Data Re rce(s) Supporting Document(s) [facility] Rapid COVID Antigen Test Negative [facility] This lab was reported by Jacky [facility]. ID Date Data Source [id number] 06/06/2020 09:18:00 AM EST MED[facility] ([facility]) Name Value Range Interpretation Code Description Data Re rce(s) Supporting Document(s) Red Blood Count 4.39 10 4.00-5.40 [facility] ([facility]) White Blood Count 4.5 10 4.0-10.0 [facility] ([facility]) Hematocrit 37.3 % 36.0-47.0 [facility] Hemoglobin 11.9 g/dL 12.0-15.5 Below low normal [facility] ([facility]) Mean Corpuscular Volume 85.0 fl 80.0-96.0 [facility] ([facility]) Mean Corpuscular Hemoglobin 27.1 pg 27.0-33.0 ME DENT ([facility]) Mean Corpuscular HGB Conc 31.9 g/dL 32.0-36.5 Below low normal [facility] ([facility]) Neutrophils % 60.0 % 36.0-66.0 [facility] ([facility]) Platelet Count, Automated 320 10 150-450 MEDE NT ([facility]) Red Cell Distribution Width 13.7 % 11.5-14.5 ME D[facility] ([facility]) Eos % 1.8 % 0.0-3.0 [facility] Canadian % 6.0 % 0.0-5.0 Above high normal [facility] ([facility]) Lymph % 31.3 % 24.0-44.0 [facility]) Immature Granulocyte % 0.2 % 0-3.0 [facility] ([facility]) Baso % 0.7 % 0.0-1.0 [facility]) Nucleated Red Blood Cell % 0.0 % 0-0 MED E[facility] ([facility]) Lymph # 1.4 10 1.5-5.0 Below low normal [facility] ([facility]) Canadian # 0.3 10 0.0-0.8 [facility]) Neutrophils # 2.7 10 1.5-8.5 [facility] ([facility]) Eos # 0.1 10 0.0-0.5 [facility]) Baso # 0.0 10 0.0-0.2 [facility]) ID Date Data Source [id number] 06/06/2020 09:18:00 AM EST [facility] ([facility]) Name Value Range Interpretation Code Description Data Re rce(s) Supporting Document(s) Thyroglobulin Quantitative 45.7 ng/mL 1.5-38.5 Above high normal [facility] ([facility]) . According to the National Academy [...] is 0.1 ng/mL . Thyroglobulin measured by [employer] Anabelle Immunometric Assay Performed at: - [facility] [address] [id number] Snuff Box Finisher: Louis Batista MD, Phone: [phone] Performed at: - [facility] [address] [id number] Snuff Box Finisher: Nathalie Marie MD, Phone: [phone] Thryoglobulin Antibodies ([place]) Laboratory test result 0.0-0.9 [facility] ([facility]) Thyroglobulin Antibody measured by [employer] ID Date Data Source [id number] 06/06/2020 09:18:00 AM EST MED[facility] ([facility]) Name Value Range Interpretation Code Description Data Re rce(s) Supporting Document(s) Thyrotropin receptor Ab [Units/volume] in Serum Laboratory t est result 0.00-1.75 [facility] ([facility]) ID Date Data Source [id number] 06/06/2020 09:18:00 AM EST [facility] ([facility]) Name Value Range Interpretation Code Description Data Re rce(s) Supporting Document(s) Calcitriol [Mass/volume] in Serum or Plasma 49.0 pg/mL 19.9-79.3 [facility] ([facility]) ID Date Data Source [id number] 06/06/2020 09:17:00 AM EST [facility] ([facility]) Name Value Range Interpretation Code Description Data Re rce(s) Supporting Document(s) Thyrotropin [Units/volume] in Serum or Plasma 2.350 uIU/ML 0.463-3.98 [facility] ([facility]) Thyroxine (T4) free [Mass/volume] in Serum or Plasma 0.97 ng/dL 0.78- 1.33 [facility] ([facility]) Cobalamin (Vitamin B12) [Mass/volume] in Serum or Plasma 513 pg/mL 2 47-911 [facility] ([facility]) VITAMIN B12 NORMAL RANGE NORMAL 247 - 911 PG/ML INDETERMINATE 211 - 246 PG/ML DEFICIENT LESS THAN 211 PG/ML Folate [Mass/volume] in Serum or Plasma 11.8 ng/mL [facility] ([facility]) FOLATE NORMAL RANGE NORMAL GREATER THAN 5.4 NG/ML INDETERMINATE 3.4-5.4 NG/ML DEFICIENT LESS THAN 3.4 NG/ML ID Date Data Source [id number] 06/06/2020 09:17:00 AM EST MED[facility] ([facility]) Name Value Range Interpretation Code Description Data Re rce(s) Supporting Document(s) Iron (Fe) 29 ug/dL 50-170 Below low normal [facility] ([facility]) Percent Saturation 7.0 % 13.2-45.0 Below low normal [facility] ([facility]) Total Iron Binding Capacity 412 ug/dL 250-450 ME [facility] ([facility]) ID Date Data Source [id number] 06/06/2020 09:17:00 AM EST [facility] ([facility]) Name Value Range Interpretation Code Description Data Re rce(s) Supporting Document(s) Glucose, Fasting 78 mg/dL 70-100 [facility] ([facility]) Sodium Level 140 meq/L 136-145 [facility] ([facility]) Creatinine For GFR 0.63 mg/dL 0.55-1.30 [facility] ([facility]) Blood Urea Nitrogen 8 mg/dL 7-18 [facility] ([facility]) Carbon Dioxide Level 31 meq/L 21-32 [facility] Chloride Level 106 meq/L 98-107 MED[facility] ([facility]) Potassium Serum 4.4 meq/L 3.5-5.1 MED[facility] ([facility]) Calcium Level 9.4 mg/dL 8.5-10.1 [facility] ([facility]) Ast/Sgot 63 U/L 7-37 Above high normal MED[facility] ([facility]) Anion Gap 3 meq/L 8-16 Below low normal [facility] ([facility]) Alkaline Phosphatase 64 U/L 45-117 [facility] ( [facility] Alt/SGPT 96 U/L 12-78 Above high normal [facility] Total Protein 7.0 GM/DL 6.4-8.2 [facility] ([facility]) Bilirubin,Total 0.2 mg/dL 0.2-1.0 [facility] ([facility]) Albumin 3.7 GM/DL 3.2-5.2 [facility] ([facility]) Albumin/Globulin Ratio 1.1 1.2-2.2 Below low normal [facility] ([facility]) ID Date Data Source [id number] 06/06/2020 09:17:00 AM EST [facility] ([facility]) Name Value Range Interpretation Code Description Data Re rce(s) Supporting Document(s) Collagen Epinephrine 92 s 74-162 [facility] Results may be affected by platelet coun ts less than 150,000/mL or hematocrits less than 35%. If COL/EPI is NORMAL, COL/ADP is not performed. Result Interpretation: COL/EPI COL/ADP NORMAL NORMAL NORMAL ASA ABNORMAL NORMAL vWD ABNORMAL NORMAL GLANZMANN'S ABNORMAL ABNORMAL THROMBASTHENIA POSSIBLE DRUG ABNORMAL ABNORMAL EFFECT ID Date Data Source [id number] 06/06/2020 09:17:00 AM EST [facility] ([facility]) Name Value Range Interpretation Code Description Data Re rce(s) Supporting Document(s) Inr 0.99 [facility] ([facility]) THERAPUTIC HUMAN INR VALUES INDICATIONS NORMAL RANGES PROPHYLAXIS/TREATMENT OF: VENOUS THROMBOSIS 2.0-3.0 PULMONARY EMBOLISM 2.0-3.0 PREVENTION OF SYSTEMIC EMBOLISM FROM: TISSUE HEART VALVES 2.0-3.0 ACUTE MYOCARDIAL INFARCTION 2.0-3.0 VALVULAR HEART DISEASE 2.0-3.0 ATRIAL FIBRILLATION 2.0-3.0 MECHANICAL VALVES(HIGH RISK) 2.5-3.5 RECURRENT MYOCARDIAL INFARCTION 2.5-3.5 Prothrombin Time 13.3 s 12.5-14.3 [facility] ([facility]) Partial Thromboplastin Time 32.7 s 24.2-38.5 [facility] ([facility]) ID Date Data Source [id number] 06/06/2020 12:00:00 AM EST [facility] Dyana Cardenas MD Patient Name: MATTY [id number] [facility] Date of : [address] [facility]: [facility] [id number]#: Fax: [id number] EXAM: ABDOMEN AP (KUB) X-RAYCLINICAL [...] intraperitoneal air.IMPRESSION:Increased stool pattern as described above.GRISEL Rowley/Ashlye you for referring GRANT WALTER to our office. Electronically Signed - JAC KHAN DO 06/06/20 15:18 Name Value Range Interpretation Code Description Data Re rce(s) Supporting Document(s) Procedure Vital Signs ID Date Data Source [id number] Name Value Range Interpretation Code Description Data Source(s) Body weight 94.349 kg 94.349 kg [facility] ([facility]) Body weight 208.00 [lb_av] 208.00 [lb_av] MEDEN T ([facility]) Body weight 94.235 kg 94.235 kg [facility] ([facility]) Body weight 207.75 [lb_av] 207.75 [lb_av] MEDEN T ([facility])
[2020-06-25 20:49] LABS: HEMATOCRIT 40.1 % (36.0-47.0); HEMOGLOBIN 12.9 g/dl (12.0-15.5); MEAN CORPUSCULAR HEMOGLOBIN 27.2 pg (27.0-33.0); MEAN CORPUSCULAR HGB CONC 32.2 g/dl (32.0-36.5); MEAN CORPUSCULAR VOLUME 84.4 fl (80.0-96.0); PLATELET COUNT, AUTOMATED 313 10^3/uL (150-450); RED BLOOD COUNT 4.75 10^6/uL (4.00-5.40); WHITE BLOOD COUNT 8.6 10^3/uL (4.0-10.0)
--- NOTE | 2020-06-25 21:14 | REPVR ---
PROCEDURE INFORMATION: Exam: US Nonobstetric Pelvis; Complete Exam date and time: 06/25/2020 8:58 PM Age: 19 years old Clinical indication: Pain; Menstruation abnormalities; Irregular menstruation; Dysmenorrhea; Additional info: Pelvic pain, irregular vaginal bleeding TECHNIQUE: Imaging protocol: Transabdominal pelvic nonobstetric ultrasound. Complete exam. Real time ultrasound with image documentation. COMPARISON: US PELVIC NON-OB COMPLETE 03/31/2018 1:22 PM FINDINGS: Uterus/cervix: Uterus measures 7.4 x 3.9 x 5 cm. Endometrial echo complex measures 8.9 mm. Myometrium appears unremarkable. Right adnexa: Right ovary measures 4.4 x 2.2 x 2.8 cm. Dominant follicle right ovary measures 1.1 x 1 x 0.9 cm. Left adnexa: Left ovary measures 3.5 x 1.5 x 2 cm. Intraperitoneal space: Trace free fluid in the cul-de-sac is Urinary bladder: Normal. IMPRESSION: Unremarkable examination. Electronically signed by: Jewel Abarca On 06/25/2020 21:14:05 PM
[2020-06-25] MEDS ORDERED: IBUP80TA PO (21:17)
[2020-06-25 21:24] VITALS: BP 148/78
== END 2020-06-25 21:25 | disposition home or self-care (01) ==
LOC: M ED 18:29
DX: N93.8 Other specified abnormal uterine and vaginal bleeding (principal); K21.9 Gastro-esophageal reflux disease without esophagitis; D50.9 Iron deficiency anemia, unspecified; Z79.899 Other long term (current) drug therapy

== ENCOUNTER → 2020-08-04 | Outpatient (CLI) | payer OTHER ==
[~2020-08-04] MED LIST changes: +FERR324T2; +IBUP80TA PO; -PEG1POW PO; +POLY17PO18 PO
[2020-08-04 18:47] LABS: MONO REFLEX EBV COMP NEGATIVE (NEGATIVE)
[2020-08-07 15:07] LABS: CYTOMEGALOVIRUS IgM ANTIBODY <30.0 AU/mL (0.0-29.9); EBV AB TO NUCLEAR ANTIGEN >600.0 U/mL (0.0-17.9); EBV VIRAL CAPSID AG IgM <36.0 U/mL (0.0-35.9)
== END ==
LOC: M PLALAB 15:41
PROVIDERS: ATTEND Pediatrics
DX: J03.01 Acute recurrent streptococcal tonsillitis (principal)

== ENCOUNTER → 2020-10-30 | Outpatient (REF) | payer OTHER | LOC: M LAB REF 13:09 | PROVIDERS: ATTEND Pediatrics | DX: J02.9 Acute pharyngitis, unspecified (principal) ==

== ENCOUNTER → 2020-10-31 | Outpatient (REF) | payer OTHER | LOC: M SFHCWAGY 17:22 | PROVIDERS: ATTEND Advanced Practice Midwife | DX: Z11.3 Encounter for screening for infections with a predominantly sexual mode of transmission (principal) ==

== ENCOUNTER → 2021-01-09 | Outpatient (CLI) | payer OTHER ==
[~2021-01-09] MED LIST changes: +CLONI1TA PO; +FERR325T3 PO; +LEVS0.123 PO; +MIRA1POW3 PO; +VITATAB74 PO
[2021-01-09 15:47] LABS: BASO # 0.1 10^3/uL (0.0-0.2); BASO % 0.8 % (0.0-1.0); EOS # 0.1 10^3/uL (0.0-0.5); HEMATOCRIT 34.5 % (36.0-47.0); HEMOGLOBIN 11.1 g/dl (12.0-15.5); LYMPH # 2.3 10^3/uL (1.5-5.0); LYMPH % 30.4 % (24.0-44.0); MEAN CORPUSCULAR HEMOGLOBIN 26.6 pg (27.0-33.0); MEAN CORPUSCULAR HGB CONC 32.2 g/dl (32.0-36.5); MEAN CORPUSCULAR VOLUME 82.7 fl (80.0-96.0); MONO # 0.5 10^3/uL (0.0-0.8); MONO % 6.6 % (2.0-8.0); NEUTROPHILS # 4.7 10^3/uL (1.5-8.5); NEUTROPHILS % 60.9 % (36.0-66.0); PLATELET COUNT, AUTOMATED 321 10^3/uL (150-450); RED BLOOD COUNT 4.17 10^6/uL (4.00-5.40); WHITE BLOOD COUNT 7.7 10^3/uL (4.0-10.0)
[2021-01-09 16:09] LABS: ALBUMIN 3.5 GM/DL (3.2-5.2); ALT/SGPT 21 U/L (12-78); BILIRUBIN,TOTAL 0.2 MG/DL (0.2-1.0); BLOOD UREA NITROGEN 10 MG/DL (7-18); CARBON DIOXIDE LEVEL 28 MEQ/L (21-32); CHLORIDE LEVEL 107 MEQ/L (98-107); CREATININE FOR GFR 0.65 MG/DL (0.55-1.30); GLUCOSE, FASTING 75 MG/DL (70-100); POTASSIUM SERUM 4.2 MEQ/L (3.5-5.1); SODIUM LEVEL 138 MEQ/L (136-145)
[2021-01-09 16:10] LABS: APPEARANCE, URINE HAZY (CLEAR); BACTERIA, URINE AUTO NEGATIVE (NEGATIVE); BILIRUBIN, URINE AUTO NEGATIVE (NEGATIVE); BLOOD, URINE BLOOD NEGATIVE (NEGATIVE); COLOR, URINE YELLOW (YELLOW); GLUCOSE, URINE (UA) AUTO NEGATIVE (NEGATIVE); KETONE, URINE AUTO NEGATIVE (NEGATIVE); LEUKOCYTE ESTERASE, URINE AUTO NEGATIVE (NEGATIVE); NITRITE, URINE AUTO NEGATIVE (NEGATIVE); PROTEIN, URINE AUTO NEGATIVE (NEGATIVE); RBC, URINE AUTO 0 /HPF (0-3); SPECIFIC GRAVITY URINE AUTO 1.027 (1.002-1.035); SQUAMOUS EPITHELIAL CELL UR AU 3 /HPF (0-6); UROBILINOGEN, URINE AUTO 0.2 mg/dL (0.0-2.0); WBC, URINE AUTO 1 /HPF (0-3)
== END ==
LOC: M PLALAB 14:13
PROVIDERS: ATTEND Specialist
DX: S37.011A Minor contusion of right kidney, initial encounter (principal); X58.XXXA Exposure to other specified factors, initial encounter; Y92.9 Unspecified place or not applicable; Y93.9 Activity, unspecified; Y99.9 Unspecified external cause status

== ENCOUNTER → 2021-01-12 | Outpatient (CLI) | payer OTHER ==
[~2021-01-12] MED LIST changes: -CLONI1TA PO; -FERR325T3 PO; -LEVS0.123 PO; -MIRA1POW3 PO; -VITATAB74 PO
--- NOTE | 2021-01-12 08:10 | REP ---
INDICATION: CONTUSION OF RT KIDNEY COMPARISON: None TECHNIQUE: Real time collins scale ultrasound examination using curved array transducer. FINDINGS: The kidneys are normal in contour, size, echogenicity, and reniform shape. No hydronephrosis, nephrolithiasis, cystic or renal mass lesion. No perinephric fluid collection. Right kidney measures 12.7 x 6.4 x 4.1 cm. Left kidney measures 11.1 x 5.2 x 6.5 cm. Bladder is unremarkable. IMPRESSION: 1. Normal renal ultrasound. <Electronically signed by Morgan Blunt > 01/12/21 [id number]
== END ==
LOC: M RAD 07:32
PROVIDERS: ATTEND Specialist
DX: S37.011A Minor contusion of right kidney, initial encounter (principal); X58.XXXA Exposure to other specified factors, initial encounter; Y92.9 Unspecified place or not applicable; Y93.9 Activity, unspecified; Y99.9 Unspecified external cause status

== ENCOUNTER → 2021-01-16 | Outpatient (REF) | payer OTHER ==
[2021-01-16 19:26] LABS: AMORPHOUS SEDIMENT LARGE (NEGATIVE); APPEARANCE, URINE TURBID (CLEAR); BACTERIA, URINE AUTO NEGATIVE (NEGATIVE); BILIRUBIN, URINE AUTO NEGATIVE (NEGATIVE); BLOOD, URINE BLOOD 2+ (NEGATIVE); COLOR, URINE YELLOW (YELLOW); GLUCOSE, URINE (UA) AUTO NEGATIVE (NEGATIVE); KETONE, URINE AUTO TRACE mg/dL (NEGATIVE); LEUKOCYTE ESTERASE, URINE AUTO NEGATIVE (NEGATIVE); MUCUS, URINE SMALL (NEGATIVE); NITRITE, URINE AUTO NEGATIVE (NEGATIVE); PROTEIN, URINE AUTO 2+ mg/dL (NEGATIVE); RBC, URINE AUTO 24 /HPF (0-3); SQUAMOUS EPITHELIAL CELL UR AU 0 /HPF (0-6); WBC, URINE AUTO 0 /HPF (0-3)
== END ==
LOC: M LAB REF 18:06
PROVIDERS: ATTEND Specialist
DX: S37.011A Minor contusion of right kidney, initial encounter (principal); R30.0 Dysuria; Y92.9 Unspecified place or not applicable; Y93.9 Activity, unspecified

== ENCOUNTER → 2021-02-14 | Outpatient (REF) | LOC: M EMP 08:55 | PROVIDERS: ATTEND Family Medicine | DX: Z20.822 Contact with and (suspected) exposure to COVID-19 (principal) ==

== ENCOUNTER → 2021-02-14 | Outpatient (REF) | payer OTHER ==
[2021-02-14 14:08] LABS: RSV AMPLIFICATION NEGATIVE (NEGATIVE)
== END ==
LOC: M LAB REF 13:08
PROVIDERS: ATTEND Specialist
DX: J01.90 Acute sinusitis, unspecified (principal)

== ENCOUNTER 2021-02-18 18:40 | Emergency (ER) | payer OTHER ==
[~2021-02-18] VITALS: Ht 175.3 cm; Wt 95.4 kg
[2021-02-18] MEDS ORDERED: ONDANSETRON 4MG/2ML VIAL IV ONE (20:20)
[2021-02-18] MEDS ORDERED: NS 1,000 ML IV ONE (20:20)
[2021-02-18 20:47] LABS: BASO # 0.1 10^3/uL (0.0-0.2); BASO % 0.8 % (0.0-1.0); EOS # 0.1 10^3/uL (0.0-0.5); EOS % 1.5 % (0.0-3.0); HEMATOCRIT 33.5 % (36.0-47.0); HEMOGLOBIN 10.8 g/dl (12.0-15.5); LYMPH # 2.9 10^3/uL (1.5-5.0); LYMPH % 38.2 % (24.0-44.0); MEAN CORPUSCULAR HEMOGLOBIN 26.1 pg (27.0-33.0); MEAN CORPUSCULAR HGB CONC 32.2 g/dl (32.0-36.5); MEAN CORPUSCULAR VOLUME 80.9 fl (80.0-96.0); MONO # 0.5 10^3/uL (0.0-0.8); MONO % 6.1 % (2.0-8.0); NEUTROPHILS % 53.1 % (36.0-66.0); PLATELET COUNT, AUTOMATED 317 10^3/uL (150-450); RED BLOOD COUNT 4.14 10^6/uL (4.00-5.40); WHITE BLOOD COUNT 7.5 10^3/uL (4.0-10.0)
[2021-02-18 21:10] LABS: ALBUMIN 3.4 GM/DL (3.2-5.2); ALT/SGPT 17 U/L (12-78); BILIRUBIN,DIRECT < 0.1 MG/DL (0.0-0.2); BILIRUBIN,TOTAL 0.1 MG/DL (0.2-1.0); LIPASE 115 U/L (73-393); TOTAL PROTEIN 6.8 GM/DL (6.4-8.2)
[2021-02-18] MEDS ORDERED: ISOVUE-370 76% 100ML VIAL As Ordered ONE (21:27)
[2021-02-18] MEDS ORDERED: KETOROLAC 30 MG/ML 1ML VIAL IV ONE (21:30)
--- NOTE | 2021-02-18 23:46 | REPVR ---
PROCEDURE INFORMATION: Exam: CT Abdomen And Pelvis With Contrast Exam date and time: 02/18/2021 9:38 PM Age: 20 years old Clinical indication: Abdominal pain; Additional info: Rlq abd pain TECHNIQUE: Imaging protocol: Computed tomography of the abdomen and pelvis with contrast. Radiation optimization: All CT scans at this facility use at least one of these dose optimization techniques: automated exposure control; mA and/or kV adjustment per patient size (includes targeted exams where dose is matched to clinical indication); or iterative reconstruction. Contrast material: ISO 370; Contrast volume: 100 ml; Contrast route: INTRAVENOUS (IV); COMPARISON: US PELVIC NON-OB COMPLETE 06/25/2020 8:38 PM FINDINGS: Lungs: Clear appearing lung bases. Heart: The heart is normal in size and there is no pericardial effusion. Liver: There is a 2.8 cm round low-density area in the inferior aspect of the right lobe of the liver. This may represent a benign lesion. However, further evaluation with MR should be performed to exclude any possibility of pathology. Gallbladder and bile ducts: Normal common bile duct. Normal gallbladder. Pancreas: Normal appearing pancreas. Spleen: Normal appearing spleen. Adrenal glands: Normal adrenal glands. Kidneys and ureters: There is enhancement of both kidneys. There is enhancement of both kidneys and no evidence of hydronephrosis. Stomach and bowel: The cecum is in the right pelvis and there is no evidence of thickening of the cecum. Normal appearing small bowel. Appendix: The appendix appears normal in size. The appendix is difficult to identify and low in the right pelvis. There is no definite evidence of appendicitis. Intraperitoneal space: There is no evidence of pneumoperitoneum. There is a small amount of fluid within the cul-de-sac. Vasculature: There is opacification of the aorta which appears normal in size and intact. Lymph nodes: Unremarkable. No enlarged lymph nodes. Urinary bladder: Normal appearing urinary bladder. Normal appearing urinary bladder. Reproductive: The uterus is normal in size. There are follicular cysts of the left ovary. There are follicular cysts of the right ovary. Bones/joints: There is mild compression of the vertebral endplates of T12. Soft tissues: There is no evidence of soft tissue abnormality. IMPRESSION: 1. Small amount of free fluid in lower pelvis. 2. Follicular cysts of both ovaries. 3. 2.8 cm low-density area lower aspect of the right lobe of the liver could be a lesion. This may represent a hemangioma, however, pathologic lesion not excluded and recommend MRI with contrast for further evaluation as a dynamic study. Electronically signed by: Angelo Sofia On 02/18/2021 23:46:00 PM
[2021-02-19 00:21] VITALS: BP 128/68
== END 2021-02-19 00:22 | disposition home or self-care (01) ==
LOC: M ED 18:40
DX: R10.31 Right lower quadrant pain (principal); R93.5 Abnormal findings on diagnostic imaging of other abdominal regions, including retroperitoneum; K21.9 Gastro-esophageal reflux disease without esophagitis
CPT/HCPCS: 74177; 80047; 80076; 81001; 83690; 84702; 85025; 96361; 96374; 96375; 99284; J1885; J2405; Q9967

== ENCOUNTER → 2021-02-28 | Outpatient (CLI) | payer OTHER ==
[2021-02-28 17:31] LABS: BASO # 0.1 10^3/uL (0.0-0.2); BASO % 0.7 % (0.0-1.0); EOS # 0.1 10^3/uL (0.0-0.5); EOS % 0.7 % (0.0-3.0); HEMATOCRIT 35.1 % (36.0-47.0); MEAN CORPUSCULAR HEMOGLOBIN 25.8 pg (27.0-33.0); MEAN CORPUSCULAR HGB CONC 31.3 g/dl (32.0-36.5); MEAN CORPUSCULAR VOLUME 82.4 fl (80.0-96.0); MONO # 0.6 10^3/uL (0.0-0.8); MONO % 7.8 % (2.0-8.0); NEUTROPHILS # 4.3 10^3/uL (1.5-8.5); NEUTROPHILS % 61.5 % (36.0-66.0); PLATELET COUNT, AUTOMATED 330 10^3/uL (150-450); RED BLOOD COUNT 4.26 10^6/uL (4.00-5.40)
[2021-02-28 18:03] LABS: MONO REFLEX EBV COMP NEGATIVE (NEGATIVE)
[2021-02-28 18:08] LABS: ALBUMIN 3.4 GM/DL (3.2-5.2); ALT/SGPT 18 U/L (12-78); BILIRUBIN,TOTAL 0.3 MG/DL (0.2-1.0); BLOOD UREA NITROGEN 9 MG/DL (7-18); CARBON DIOXIDE LEVEL 29 MEQ/L (21-32); CHLORIDE LEVEL 106 MEQ/L (98-107); CREATININE FOR GFR 0.65 MG/DL (0.55-1.30); FREE T4 0.93 NG/DL (0.78-1.33); GLUCOSE, FASTING 80 MG/DL (70-100); IRON (FE) 35 UG/DL (50-170); PERCENT SATURATION 7.7 % (13.2-45.0); POTASSIUM SERUM 4.2 MEQ/L (3.5-5.1); SODIUM LEVEL 140 MEQ/L (136-145); TOTAL 25(OH) VITAMIN D 15.9 NG/ML (30.0-100.0); TOTAL IRON BINDING CAPACITY 453 UG/DL (250-450); TOTAL PROTEIN 6.7 GM/DL (6.4-8.2)
[2021-03-02 18:07] LABS: CYTOMEGALOVIRUS IgM ANTIBODY <30.0 AU/mL (0.0-29.9); EBV AB TO NUCLEAR ANTIGEN >600.0 U/mL (0.0-17.9); EBV VIRAL CAPSID AG IgM <36.0 U/mL (0.0-35.9)
== END ==
LOC: M PLALAB 15:09
PROVIDERS: ATTEND Specialist
DX: R53.83 Other fatigue (principal)

== ENCOUNTER → 2021-03-05 | Outpatient (REF) | payer OTHER ==
[2021-03-05 19:05] LABS: GC DNA AMPLIFICATION NEGATIVE (NEGATIVE)
== END ==
LOC: M SFHCWAGY 13:00
PROVIDERS: ATTEND Advanced Practice Midwife
DX: Z11.3 Encounter for screening for infections with a predominantly sexual mode of transmission (principal)

== ENCOUNTER → 2021-03-19 | Outpatient (CLI) | payer OTHER ==
[2021-03-19 16:46] LABS: HEPATITIS B SURFACE ANTIGEN NEGATIVE (NEGATIVE); HEPATITIS C VIRUS ABY INDEX 0.1 INDEX (<0.8); HIV 1&2 SCREEN CENTAUR NEGATIVE (NEGATIVE)
== END ==
LOC: M PLALAB 13:37
PROVIDERS: ATTEND Advanced Practice Midwife
DX: Z11.3 Encounter for screening for infections with a predominantly sexual mode of transmission (principal)

== ENCOUNTER → 2021-03-19 | Outpatient (CLI) | payer OTHER ==
[2021-03-19 16:10] LABS: FREE T4 1.08 NG/DL (0.78-1.33); THYROID PEROXIDASE ANTIBODY < 28.0 U/ML (<60.0)
== END ==
LOC: M PLALAB 13:36
PROVIDERS: ATTEND Nurse Practitioner Family
DX: E03.9 Hypothyroidism, unspecified (principal)

== ENCOUNTER → 2021-03-23 | Outpatient (REF) | payer OTHER | LOC: M LAB REF 12:44 | PROVIDERS: ATTEND Nurse Practitioner Family | DX: J06.9 Acute upper respiratory infection, unspecified (principal) ==

== ENCOUNTER → 2021-04-10 | Outpatient (RCR) | payer OTHER ==
[~2021-04-10] MED LIST changes: +CLONI1TA PO; +FERR325T3 PO; +LEVS0.123 PO; +MIRA1POW3 PO; +OMEP-173 PO; -OMEP-218 PO; +VITATAB74 PO
== END ==
LOC: M PT 03-12 14:52
PROVIDERS: ATTEND Specialist
DX: M54.59 Other low back pain (principal)

== ENCOUNTER 2021-04-11 15:49 | Observation (INO) | payer OTHER ==
[~2021-04-11] VITALS: Ht 175.3 cm; Wt 98.2 kg
[~2021-04-11 15:49] MED LIST changes: -CLONI1TA PO; -FERR325T3 PO; -LEVS0.123 PO; -MAGNESIUM CITRATE 300 ML BTL PO ONE; -MIRA1POW3 PO; -OMEP-173 PO; +OMEP-218 PO; -ONDANSETRON 4 MG TAB PO ONE; -VITATAB74 PO
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
--- OUTSIDE RECORDS SUMMARY | 2021-04-11 16:31 | CCD | Continuity of Care Document ---
Author Author Esperanza OLIVO MD Organization Unknown Address [address] [place] [address] Phone [phone] Care Team Providers Care Assembler Seat Name Role Phone Real Kent MD [facility] [phone] Problems Description No Information Available Social History Type Date Description Comments Sex Unknown Tobacco Use Start: Unknown Never Smoked Cigarettes Smoking Status Reviewed: 03/14/21 Never Smoked Cigarettes ETOH Use Never used alcohol Allergies and adverse reactions Description No Information Available Medications Active Medications SIG Qnty Indications Ordering Provide r Date Vitamin D 2000Unit Tablets 1 by mouth every day twice a day Unknown Clonidine HCL ER 0.1mg Tablets ER 12HR 1 tab by mouth nightly at bedtime, may repeat dose in 4 hours if needed Unknown Immunizations Description No Information Available Vital Signs Date Vital Result Comment 03/30/2021 2:44pm BP Systolic 118 mmHg BP Diastolic 64 mmHg Heart Rate 99 /min Height 68 inches 5'8" Weight 216.00 lb BMI (Body Mass Index) 32.8 kg/m2 O2 % BldC Oximetry 98 % 03/14/2021 11:53am BP Systolic 116 mmHg BP Diastolic 62 mmHg Heart Rate 71 /min Height 68 inches 5'8" Weight 217.00 lb BMI (Body Mass Index) 33.0 kg/m2 O2 % BldC Oximetry 98 % Results Test Acquired Date Facility Test Result H/L Range Note Laboratory test finding 03/19/2021 [facility] [address] [place] [address] [phone])- - Thyroid Peroxidase Antibody < 28.0 U/ML Normal <60.0 Thyroid Stimulating Hormone 1.660 uIU/ML Normal 0.463-3.98 Free T4 1.08 ng/dL Normal 0.78-1.33 Procedures Date Code Description Status 03/30/2021 10677 Office/Outpatient Established Mo d MDM 30-39 Min Completed 03/30/2021 22821 Echography Soft Tissue Hand & Ne ck Completed 03/14/2021 58735 Office/Outpatient New Moderate M DM 45-59 Minutes Completed Medical Devices Description No Information Available Encounters Type Date Location Provider Dx Diagnosis Office Visit 03/30/2021 2:15p DR. Mercedes Olivo MD E 03.9 Hypothyroidism, unspecified R53.83 Other fatigue Office Visit 03/14/2021 2:45p DR. Mercedes Galeana, Marcela P E03.9 Hypothyroidism, unspecified Assessments Date Code Description Provider 03/30/2021 E03.9 Hypothyroidism, unspecified Mya Olivo MD 03/30/2021 R53.83 Other fatigue Mercedes Olivo MD 03/14/2021 E03.9 Hypothyroidism, unspecified Daniel Galeana NP Plan of Treatment Future Appointment(s):* 04/10/2021 9:45 am - Mercedes Olivo MD at DR. Mercedes Olivo 03/30/2021 - Mercedes Olivo MD* E03.9 Hypothyroidism, unspecified* Comments:* Pt here for evaluation of Hypothyroidism. FH- positive maternal side, goiter with possible nodule left lobe. Tenderness in area 06/06/2020- TSH: 2.350 Free T4: 0.97, TSH RA= <1.10 02/28/21- TSH= 5.350, FT4= 0.93 03/19/21: TSH=1.6, FT4=1.0, TPO negativePatient complains fatigue. She states that her hands and fingers are cold. I looked through her blood work and she has not had a work-up for autoimmune diseases like lupus or Raynaud's. We will check inflammatory markers and SHERRILL level. She did have a severe vitamin D deficiency and is now taking supplements.Explained to her the difference between the thyroid structure and the thyroid function. Thyroid function is normal at this time. We do care for her mother who appears to have a multinodular goiter.However she does have 2 thyroid nodules which will require biopsy to rule out carcinoma. * Follow up:* lab- biopsy * R53.83 Other fatigue* New Labs:* Antinuclear Antibodies, Ordered: 03/30/21 * Celiac Disease Hla DQ, Ordered: 03/30/21 * Tissue Transglutaminase (TTG) Sendout, Ordered: 03/30/21 * Erythrocyte Sedimentation Rate, Ordered: 03/30/21 * High Sensitivity C-Reactive Protein, Ordered: 03/30/21 Functional Status Description No Information Available Mental Status Description No Information Available Referrals Description No Information Available
--- OUTSIDE RECORDS SUMMARY | 2021-04-11 16:31 | CCD | Continuity of Care Document ---
Author Author Esperanza OLIVO MD Organization Unknown Address [address] [place] [address] Phone [phone] Care Team Providers Care Government Auditor Name Role Phone Real Kent MD [facility] [phone] Problems Description No Information Available Social History [...] H/L Range Note Laboratory test finding 03/19/2021 [facility] [address] [place] [address] [phone] - Thyroid Peroxidase Antibody < 28.0 U/ML Normal <60.0 Thyroid Stimulating Hormone 1.660 uIU/ML Normal 0.463-3.98 Free T4 1.08 ng/dL Normal 0.78-1.33 Procedures Date Code Description Status 03/14/2021 78889 Office/Outpatient New Moderate M DM 45-59 Minutes Completed Medical Devices Description No Information Available Encounters Type Date Location Provider Dx Diagnosis Office Visit 03/14/2021 2:45p DR. Mercedes Galeana, N P E03.9 Hypothyroidism, unspecified Assessments Date Code Description Provider 03/30/2021 E03.9 Hypothyroidism, unspecified Yma jose antonio Olivo MD 03/30/2021 R53.83 Other fatigue Mercedes Olivo MD 03/14/2021 E03.9 Hypothyroidism, unspecified Daniel Galeana, ERI Plan of Treatment 03/30/2021 - Mercedes Olivo MD* E03.9 Hypothyroidism, unspecified* Comments:* Pt here for evaluation of Hypothyroidism. FH- positive maternal side, goiter with possible nodule left lobe. Tenderness in area 06/06/2020- TSH: 2.350 Free T4: 0.97, TSH RA= <1.10 02/28/21- TSH= 5.350, FT4= 0.93 03/19/21: TSH=1.6, FT4=1.0, TPO negativeWill schedule an in office ultrasound to evaluate left lobe. Pt agrees to plan. * Follow up:* lab- biopsy * R53.83 [...]
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
--- OUTSIDE RECORDS SUMMARY | 2021-04-11 16:32 | CCD | Continuity of Care Document ---
Author Author Esperanza BAÑUELOS V GRADUATION COACH Organization Unknown Address [address] [place] [address] Phone [phone] Care Team Providers Care Sand Operator Name Role Phone Real Kent MD AUT [phone] Problems Description No Information Available Social History [...] Available Vital Signs Date Vital Result Comment 03/14/2021 11:53am BP Systolic 116 mmHg BP Diastolic 62 mmHg Heart Rate 71 /min Height 68 inches 5'8" Weight 217.00 lb BMI (Body Mass Index) 33.0 kg/m2 O2 % BldC Oximetry 98 % Results Description No Information Available Procedures Date Code Description Status 03/14/2021 80377 Office/Outpatient New Moderate M DM 45-59 Minutes Completed Medical Devices Description No Information Available Encounters Type Date Location Provider Dx Diagnosis Office Visit 03/14/2021 2:45p DR. Mercedes Bañuelos, Marcela P E03.9 Hypothyroidism, unspecified Assessments Date Code Description Provider 03/14/2021 E03.9 Hypothyroidism, unspecified Daniel Bañuelos NP Plan of Treatment Future Appointment(s):* 03/30/2021 2:15 pm - Mercedes Jiménez MD at DR. Mercedes Jiménez 03/14/2021 - Andie Bañuelos, GRADUATION COACH* E03.9 Hypothyroidism, unspecified* New Labs:* FT4&TSH Panel, Scheduled: 03/14/21 * Microsomal Antibodies Thyroid Tpo, Scheduled: 03/14/21 * Comments:* Pt here for evaluation of Hypothyroidism. Pt noted weight gain in past 3 months Also increased fatigue, always cold, but has hot flashes.. Menses monthly, but at varialbe times and heavy.. Lack of focus. FH- positive maternal side, goiter with possible nodule left lobe. Tenderness in area Labs done 06/06/2020- TSH: 2.350 Free T4: 0.97, TSH RA= <1.10Labs done 02/28/21- TSH= 5.350, FT4= 0.93 Will recheck TSH, FT4. TPOWill schedule an in office ultrasound to evaluate left lobe. Pt agrees to plan. * Follow up:* RTO CBF U/S at f/u Functional Status Description No Information Available Mental Status Description No Information Available Referrals Description No Information Available
--- OUTSIDE RECORDS SUMMARY | 2021-04-11 16:32 | CCD | Continuity of Care Document ---
Author Author Esperanza BAÑUELOS V LINOLEUM LAYER HELPER Organization Unknown Address [address] [place] [address] Phone [phone] Care Team Providers Care Ash Collector Name Role Phone Real Kent MD AUT [phone] Problems Description No Information Available Social History [...] Available Procedures Date Code Description Status 03/14/2021 25988 Office/Outpatient New High MDM 6 0-74 Minutes Completed Medical Devices Description No Information Available Encounters Type Date Location Provider Dx Diagnosis Office Visit 03/14/2021 2:45p DR. Mercedes Bañuelos, N P E03.9 Hypothyroidism, unspecified Assessments Date Code Description Provider 03/14/2021 E03.9 Hypothyroidism, unspecified Daniel Bañuelos NP Plan of Treatment Future Appointment(s):* 03/30/2021 2:15 pm - Mercedes Jiménez MD at DR. Mercedes Jiménez 03/14/2021 - Andie Bañuelos, LINOLEUM LAYER HELPER* E03.9 Hypothyroidism, unspecified* New Labs:* FT4&TSH Panel, [...]
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
--- OUTSIDE RECORDS SUMMARY | 2021-04-11 16:32 | CCD | Continuity of Care Document ---
Author Author Esperanza BAÑUELOS V INDUSTRIAL RENDERER Organization Unknown Address [address] [place] [address] Phone [phone] Care Team Providers Care Dye Blender Name Role Phone Real Kent MD AUT [phone] Problems Description No Information Available Social History [...] Available Procedures Date Code Description Status 03/14/2021 42103 Office/Outpatient New High MDM 6 0-74 Minutes Completed Medical Devices Description No Information Available Encounters Type Date Location Provider Dx Diagnosis Office Visit 03/14/2021 2:45p DR. Mercedes Bañuelos, N P E03.9 Hypothyroidism, unspecified Assessments Date Code Description Provider 03/14/2021 E03.9 Hypothyroidism, unspecified Daniel Bñauelos NP Plan of Treatment Future Appointment(s):* 03/30/2021 2:15 pm - Mercedes Jiménez MD at DR. Mercedes Jiménez 03/14/2021 - Andie Bañuelos, INDUSTRIAL RENDERER* E03.9 Hypothyroidism, unspecified* New Labs:* FT4&TSH Panel, [...]
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
--- OUTSIDE RECORDS SUMMARY | 2021-04-11 16:34 | CCD ---
Author Author [facility] Organization [facility] Address Unknown Phone Unavailable Care Team Providers Care Human Resources Project Manager Name Role Phone NO, PCP Unavailable Unavailable Jerrod BACA MD Unavailable Unavailable Jerrod BACA MD Unavailable Unavailable Jerrod BACA MD Unavailable Unavailable Jerrod BACA MD Unavailable Unavailable Jerrod BACA MD Unavailable Unavailable Jerrod BACA MD Unavailable Unavailable Jerrod BACA MD Unavailable Unavailable Jerrod BACA MD Unavailable Unavailable Jerrod BACA MD Unavailable Unavailable Jerrod BACA MD Unavailable Unavailable Jerrod BACA MD Unavailable Unavailable Jerrod BACA MD Unavailable Unavailable Jerrod BACA MD Unavailable Unavailable Jerrod BACA MD Unavailable Unavailable Jerrod BACA MD Unavailable Unavailable Jerrod BACA MD Unavailable Unavailable Jerrod BACA MD Unavailable Unavailable Jerrod BACA MD Unavailable Unavailable Jerrod BACA MD Unavailable Unavailable Jerrod BACA MD Unavailable Unavailable Jerrod BACA MD Unavailable Unavailable Jerrod BACA MD Unavailable Unavailable Jerrod BACA MD Unavailable Unavailable Jerrod BACA MD Unavailable Unavailable Jerrod BACA MD Unavailable Unavailable Jerrod BACA MD Unavailable Unavailable Jerrod BACA MD Unavailable Unavailable Jerrod BACA MD Unavailable Unavailable Jerrod BACA MD Unavailable Unavailable Jerrod BACA MD Unavailable Unavailable Jerrod BACA MD Unavailable Unavailable Jerrod BACA MD Unavailable Unavailable Jerrod BACA MD Unavailable Unavailable Jerrod BACA MD Unavailable Unavailable Jerrod BACA MD Unavailable Unavailable Jerrod BACA MD Unavailable Unavailable Jerrod BACA MD Unavailable Unavailable Jonathan Ortiz MD Unavailable Unavailable Jonathan Ortiz MD Unavailable Unavailable Jonathan Ortiz MD Unavailable Unavailable Jonathan Ortiz MD Unavailable Unavailable Jonathan Ortiz MD Unavailable Unavailable Jonathan Ortiz MD Unavailable Unavailable Donte, Marisela Noble MD Unavailable Unavailable Donte, Marisela Noble MD Unavailable Unavailable Donte, Marisela Noble MD Unavailable Unavailable Donte, Marisela Noble MD Unavailable Unavailable Donte, Marisela Noble MD Unavailable Unavailable Donte, Marisela Noble MD Unavailable Unavailable Donte, Marisela Noble MD Unavailable Unavailable Donte, Marisela Noble MD Unavailable Unavailable Donte, Marisela Noble MD Unavailable Unavailable Donte, Marisela Noble MD Unavailable Unavailable Donte, Marisela Noble MD Unavailable Unavailable Donte, Marisela Noble MD Unavailable Unavailable Donte, Marisela Noble MD Unavailable Unavailable Donte, Marisela Noble MD Unavailable Unavailable Donte, Marisela Noble MD Unavailable Unavailable Donte, Marisela Noble MD Unavailable Unavailable Donte, Marisela Noble MD Unavailable Unavailable Donte, Marisela Noble MD Unavailable Unavailable Donte, Marisela Noble MD Unavailable Unavailable Donte, Marisela Noble MD Unavailable Unavailable Donte, Marisela Noble MD Unavailable Unavailable Donte, Marisela Noble MD Unavailable Unavailable Donte, Mairsela Noble MD Unavailable Unavailable Donte, Marisela Noble MD Unavailable Unavailable Donte, Marisela Noble MD Unavailable Unavailable Donte, Marisela Noble MD Unavailable Unavailable Donte, Marisela Noble MD Unavailable Unavailable Feola, T Shraddha PA [...] Unavailable Feola, T Shraddha PA Unavailable Unavailable EDDA, B APOLINAR ENGINE EMISSION TECHNICIAN Unavailable Unavailable EDDA, B APOLINAR ENGINE EMISSION TECHNICIAN Unavailable Unavailable EDDA, B APOLINAR ENGINE EMISSION TECHNICIAN Unavailable Unavailable EDDA, B APOLINAR ENGINE EMISSION TECHNICIAN Unavailable Unavailable EDDA, B APOLINAR ENGINE EMISSION TECHNICIAN Unavailable Unavailable EDDA, B APOLINAR ENGINE EMISSION TECHNICIAN Unavailable Unavailable EDDA, B APOLINAR ENGINE EMISSION TECHNICIAN Unavailable Unavailable EDDA, B APOLINAR ENGINE EMISSION TECHNICIAN Unavailable Unavailable EDDA, B APOLINAR ENGINE EMISSION TECHNICIAN Unavailable Unavailable EDDA, B APOLINAR ENGINE EMISSION TECHNICIAN Unavailable Unavailable EDDA, B APOLINAR ENGINE EMISSION TECHNICIAN Unavailable Unavailable EDDA, B APOLINAR ENGINE EMISSION TECHNICIAN Unavailable Unavailable EDDA, B APOLINAR ENGINE EMISSION TECHNICIAN Unavailable Unavailable EDDA, B APOLINAR ENGINE EMISSION TECHNICIAN Unavailable Unavailable EDDA, B APOLINAR ENGINE EMISSION TECHNICIAN Unavailable Unavailable EDAD, B APOLINAR ENGINE EMISSION TECHNICIAN Unavailable Unavailable EDDA, B APOLINAR ENGINE EMISSION TECHNICIAN Unavailable Unavailable EDDA, B APOLINAR ENGINE EMISSION TECHNICIAN Unavailable Unavailable EDDA, B APOLINAR ENGINE EMISSION TECHNICIAN Unavailable Unavailable EDDA, B APOLINAR ENGINE EMISSION TECHNICIAN Unavailable Unavailable EDDA, B APOLINAR ENGINE EMISSION TECHNICIAN Unavailable Unavailable EDDA, B APOLINAR ENGINE EMISSION TECHNICIAN Unavailable Unavailable EDDA, B APOLINAR ENGINE EMISSION TECHNICIAN Unavailable Unavailable EDDA, B APOLINAR ENGINE EMISSION TECHNICIAN Unavailable Unavailable EDDA, B APOLINAR ENGINE EMISSION TECHNICIAN Unavailable Unavailable EDDA, B APOLINAR ENGINE EMISSION TECHNICIAN Unavailable Unavailable EDDA, B APOLINAR ENGINE EMISSION TECHNICIAN Unavailable Unavailable EDDA, B APOLINAR ENGINE EMISSION TECHNICIAN Unavailable Unavailable EDDA, B APOLINAR ENGINE EMISSION TECHNICIAN Unavailable Unavailable EDDA, B APOLINAR ENGINE EMISSION TECHNICIAN Unavailable Unavailable EDDA, B APOLINAR ENGINE EMISSION TECHNICIAN Unavailable Unavailable EDDA, B APOLINAR ENGINE EMISSION TECHNICIAN Unavailable Unavailable EDDA, B APOLINAR ENGINE EMISSION TECHNICIAN Unavailable Unavailable EDDA, B APOLINAR ENGINE EMISSION TECHNICIAN Unavailable Unavailable EDDA, B APOLINAR ENGINE EMISSION TECHNICIAN Unavailable Unavailable EDDA, B APOLINAR ENGINE EMISSION TECHNICIAN Unavailable Unavailable EDDA, B APOLINAR ENGINE EMISSION TECHNICIAN Unavailable Unavailable EDDA, B APOLINAR ENGINE EMISSION TECHNICIAN Unavailable Unavailable EDAD, B APOLINAR ENGINE EMISSION TECHNICIAN Unavailable Unavailable EDDA, B APOLINAR ENGINE EMISSION TECHNICIAN Unavailable Unavailable EDDA, B APOLINAR ENGINE EMISSION TECHNICIAN Unavailable Unavailable EDDA, B APOLINAR ENGINE EMISSION TECHNICIAN Unavailable Unavailable EDDA, B APOLINAR ENGINE EMISSION TECHNICIAN Unavailable Unavailable EDDA, B APOLINAR ENGINE EMISSION TECHNICIAN Unavailable Unavailable EDDA, B APOLINAR ENGINE EMISSION TECHNICIAN Unavailable Unavailable EDDA, B APOLINAR ENGINE EMISSION TECHNICIAN Unavailable Unavailable EDDA, B APOLINAR ENGINE EMISSION TECHNICIAN Unavailable Unavailable EDDA, B APOLINAR ENGINE EMISSION TECHNICIAN Unavailable Unavailable EDDA, B APOLINAR ENGINE EMISSION TECHNICIAN Unavailable Unavailable EDDA, B APOLINAR ENGINE EMISSION TECHNICIAN Unavailable Unavailable EDDA, B APOLINAR ENGINE EMISSION TECHNICIAN Unavailable Unavailable EDDA, B APOLINAR ENGINE EMISSION TECHNICIAN Unavailable Unavailable EDDA, B APOLINAR ENGINE EMISSION TECHNICIAN Unavailable Unavailable EDDA, B APOLINAR ENGINE EMISSION TECHNICIAN Unavailable Unavailable EDDA, B APOLINAR ENGINE EMISSION TECHNICIAN Unavailable Unavailable EDDA, B APOLINAR ENGINE EMISSION TECHNICIAN Unavailable Unavailable EDDA, B APOLINAR ENGINE EMISSION TECHNICIAN Unavailable Unavailable EDDA, B APOLINAR ENGINE EMISSION TECHNICIAN Unavailable Unavailable EDDA, B APOLINAR ENGINE EMISSION TECHNICIAN Unavailable Unavailable EDDA, B APOLINAR ENGINE EMISSION TECHNICIAN Unavailable Unavailable EDDA, B APOLINAR ENGINE EMISSION TECHNICIAN Unavailable Unavailable EDDA, B APOLINAR ENGINE EMISSION TECHNICIAN Unavailable Unavailable Fish, B Mercedes VALDOVINOS Unavailable Unavailable Fish, B Mercedes VALDOVINOS Unavailable Unavailable Fish, B Mercedes VALDOVINOS Unavailable Unavailable Fish, B Mercedes VALDOVINOS Unavailable Unavailable Fish, B Mercedes VALDOVINOS Unavailable Unavailable Fish, B Mercedes VALDOVINOS Unavailable Unavailable Fish, Rivera Long MD Unavailable Unavailable Fish, Rivera Long MD Unavailable Unavailable Fish, Rivera Long MD Unavailable Unavailable Fish, Rivera Long MD Unavailable Unavailable Fish, Rivera Long MD Unavailable Unavailable Fish, Rivera Long MD Unavailable Unavailable Fish, Rivera Long MD Unavailable Unavailable Fish, Rivera Long MD Unavailable Unavailable Fish, Rivera Long MD Unavailable Unavailable Fish, Rivera Long MD Unavailable Unavailable Fish, Rivera Long MD Unavailable Unavailable Fish, Rivera Long MD Unavailable Unavailable Fish, Rivera Long MD Unavailable Unavailable Fish, Rivera Long MD Unavailable Unavailable Fish, Rivera Long MD Unavailable Unavailable Fish, Rivera Long MD Unavailable Unavailable Fish, Rivera Long MD Unavailable Unavailable Fish, Rivera Long MD Unavailable Unavailable Fish, Rivera Long MD Unavailable Unavailable Fish, Rivera Long MD Unavailable Unavailable Fish, Rivera Long MD Unavailable Unavailable Fish, Rivera Long MD Unavailable Unavailable Fish, Rivera Long MD Unavailable Unavailable Fish, Rivera Long MD Unavailable Unavailable Fish, Rivera Long MD Unavailable Unavailable Fish, Rivera Long MD Unavailable Unavailable Fish, Rivera Long MD Unavailable Unavailable Fish, Rivera Long MD Unavailable Unavailable Fish, Rivera Long MD Unavailable Unavailable Fish, Rievra Long MD Unavailable Unavailable Fish, Rivera Long MD Unavailable Unavailable Fish, Rivera Long MD Unavailable Unavailable Fish, Rivera Long MD Unavailable Unavailable Fish, Rivera Long MD Unavailable Unavailable Fish, Rivera Long MD Unavailable Unavailable Fish, Rivera Long MD Unavailable Unavailable Fish, Rivera Long MD Unavailable Unavailable Fish, Rivera Long MD Unavailable Unavailable Fish, Rivera Long MD Unavailable Unavailable Fish, Rivera Long MD Unavailable Unavailable Fish, Rivera Long MD Unavailable Unavailable Fish, Rivera Long MD Unavailable Unavailable Fish, Rivera Long MD Unavailable Unavailable Fish, Rivera Long MD Unavailable Unavailable Fish, Rivera Long MD Unavailable Unavailable Fish, Rivera Long MD Unavailable Unavailable Fish, Rivera Long MD Unavailable Unavailable Fish, Rivera Long MD Unavailable Unavailable Fish, Rivera Long MD Unavailable Unavailable Fish, Rivera Long MD Unavailable Unavailable Fish, Rivera Long MD Unavailable Unavailable Fish, Rivera Long MD Unavailable Unavailable Fish, Rivera Long MD Unavailable Unavailable Fish, Rivera Long MD Unavailable Unavailable Fish, Rivera Long MD Unavailable Unavailable Fish, Rivera Long MD Unavailable Unavailable Fish, Rivera Long MD Unavailable Unavailable Fish, Rivera Long MD Unavailable Unavailable Fish, Rivera Long MD Unavailable Unavailable Finn PATTON RPA Unavailable Unavailable Finn PATTON RPA Unavailable Unavailable PATTON, G EDWARD RPA Unavailable Unavailable PATTON, G EDWARD RPA Unavailable Unavailable PATTON, G EDWARD RPA Unavailable Unavailable PATTON, G EDWARD RPA Unavailable Unavailable PATTON, G EDWARD RPA Unavailable Unavailable PATTON, G EDWARD RPA Unavailable Unavailable PATTON, G EDWARD RPA Unavailable Unavailable PATTON, G EDWARD RPA Unavailable Unavailable PATTON, G EDWARD RPA Unavailable Unavailable PATTON, G EDWARD RPA Unavailable Unavailable PATTON, G EDWARD RPA Unavailable Unavailable PATTON, G EDWARD RPA Unavailable Unavailable PATTON, G EDWARD RPA Unavailable Unavailable PATTON, G EDWARD RPA Unavailable Unavailable PATTON, G EDWARD RPA Unavailable Unavailable PATTON, G EDWARD RPA Unavailable Unavailable PATTON, G EDWARD RPA Unavailable Unavailable PATTON, G EDWARD RPA Unavailable Unavailable PATTON, G EDWARD RPA Unavailable Unavailable PATTON, G EDWARD RPA Unavailable Unavailable PATTON, G EDWARD RPA Unavailable Unavailable PATTON, G EDWARD RPA Unavailable Unavailable PATTON, G EDWARD RPA Unavailable Unavailable PATTON, G EDWARD RPA Unavailable Unavailable PATTON, G EDWARD RPA Unavailable Unavailable PATTON, G EDWARD RPA Unavailable Unavailable PATTON, G EDWARD RPA Unavailable Unavailable PATTON, G EDWARD RPA Unavailable Unavailable PATTON, G EDWARD RPA Unavailable Unavailable PATTON, G EDWARD RPA Unavailable Unavailable PATTON, G EDWARD RPA Unavailable Unavailable PATTON, G EDWARD RPA Unavailable Unavailable PATTON, G EDWARD RPA Unavailable Unavailable PATTON, G EDWARD RPA Unavailable Unavailable PATTON, G EDWARD RPA Unavailable Unavailable Marisela CARDENAS MD Unavailable Unavailable [...] Unavailable Unavailable Marisela CARDENAS MD Unavailable Unavailable SWAN, RONDA MSN, NDT INSPECTOR-C Unavailable Unavailable SWAN, RONDA MSN, NDT INSPECTOR-C Unavailable Unavailable SWAN, RONDA MSN, NDT INSPECTOR-C Unavailable Unavailable SWAN, RONDA MSN, NDT INSPECTOR-C Unavailable Unavailable SWAN, RONDA MSN, NDT INSPECTOR-C Unavailable Unavailable SWAN, RONDA MSN, NDT INSPECTOR-C Unavailable Unavailable SWAN, RONDA MSN, NDT INSPECTOR-C Unavailable Unavailable SWAN, RONDA MSN, NDT INSPECTOR-C Unavailable Unavailable SWAN, RONDA MSN, NDT INSPECTOR-C Unavailable Unavailable SWAN, RONDA MSN, NDT INSPECTOR-C Unavailable Unavailable SWAN, RONDA MSN, NDT INSPECTOR-C Unavailable Unavailable SWAN, RONDA MSN, NDT INSPECTOR-C Unavailable Unavailable SWAN, RONDA MSN, NDT INSPECTOR-C Unavailable Unavailable SWAN, RONDA MSN, NDT INSPECTOR-C Unavailable Unavailable SWAN, RONDA MSN, NDT INSPECTOR-C Unavailable Unavailable SWAN, RONDA MSN, NDT INSPECTOR-C Unavailable Unavailable SWAN, RONDA MSN, NDT INSPECTOR-C Unavailable Unavailable SWAN, RONDA MSN, NDT INSPECTOR-C Unavailable Unavailable SWAN, RONDA MSN, NDT INSPECTOR-C Unavailable Unavailable SWAN, RONDA MSN, NDT INSPECTOR-C Unavailable Unavailable SWAN, RONDA MSN, NDT INSPECTOR-C Unavailable Unavailable Alexsander LUJAN MD Unavailable Unavailable Alexsander LUJAN MD Unavailable Unavailable Alexsander LUJAN MD Unavailable Unavailable Alexsander LUJAN MD Unavailable Unavailable Alexsander LUJAN MD Unavailable Unavailable VANVALKENBURG, Alexsander OVERTON MD Unavailable Unavailable VANVALKENBURG, M JOMAR VALDOVINOS Unavailable Unavailable VANVALKENBURG, M JOMAR VALDOVINOS Unavailable Unavailable VANVALKENBURG, Alexsander OVERTON MD Unavailable Unavailable VANVALKENBURG, M JOMAR VLADOVINOS Unavailable Unavailable VANVALKENBURG, Alexsander OVERTON MD Unavailable Unavailable VANVALKENBURG, Alexsander OVERTON MD Unavailable Unavailable VANVALKENBURG, Alexsander OVERTON MD Unavailable Unavailable VANVALKENBURG, M JOMAR VALDOVINOS Unavailable Unavailable VANVALKENBURG, M JOMAR VALDOVINOS Unavailable Unavailable VANVALKENBURG, M JOMAR VALDOVINOS Unavailable Unavailable VANVALKENBURG, M JOMAR VALDOVINOS Unavailable Unavailable VANVALKENBURG, M JOMAR VALDOVINOS Unavailable Unavailable VANVALKENBURG, M JOMAR VALDOVINOS Unavailable Unavailable VANVALKENBURG, M JOMAR VALDOVINOS Unavailable Unavailable VANVALKENBURG, M JOMAR VALDOVINOS Unavailable Unavailable VANVALKENBURG, M JOMAR VALDOVINOS Unavailable Unavailable VANVALKENBURG, M JOMAR VALDOVINOS Unavailable Unavailable VANVALKENBURG, M JOMAR VALDOVINOS Unavailable Unavailable VANVALKENBURG, Alexsander OVERTON MD Unavailable Unavailable VANVALKENBURG, M JOMAR VALDOVINOS Unavailable Unavailable VANVALKENBURG, M JOMAR VALDOVINOS Unavailable Unavailable VANVALKENBURG, M JOMAR VALDOVINOS Unavailable Unavailable VANVALKENBURG, Alexsander OVERTON MD Unavailable Unavailable VANVALKENBURG, Alexsander OVERTON MD Unavailable Unavailable VANVALKENBURG, Alexsander OVERTON MD Unavailable Unavailable VANVALKENBURG, Alexsander OVERTON MD Unavailable Unavailable VANVALKENBURG, Alexsander OVERTON MD Unavailable Unavailable VANVALKENBURG, Alexsander OVERTON MD Unavailable Unavailable VANVALKENBURG, Alexsander OVERTON MD Unavailable Unavailable VANVALKENBURG, Alexsander OVERTON MD Unavailable Unavailable VANVALKENBURG, Alexsander OVERTON MD Unavailable Unavailable VANVALKENBURG, Alexsander OVERTON MD Unavailable Unavailable VANVALKENBURG, Alexsander OVERTON MD Unavailable Unavailable VANVALKENBURG, Alexsander OVERTON MD Unavailable Unavailable VANVALKENBURG, Alexsanedr OVERTON MD Unavailable Unavailable VANVALKENBURG, Alexsander OVERTON MD Unavailable Unavailable VANVALKENBURG, Alexsander OVERTON MD Unavailable Unavailable VANVALKENBURG, Alexsander OVERTON MD Unavailable Unavailable VANVALKENBURG, Alexsander OVERTON MD Unavailable Unavailable VANVALKENBURG, Alexsander OVERTON MD Unavailable Unavailable VANVALKENBURG, Alexsander OVERTON MD Unavailable Unavailable VANVALKENBURG, Alexsander OVERTON MD Unavailable Unavailable VANVALKENBURG, Alexsander OVERTON MD Unavailable Unavailable VANVALKENBURG, Alexsander OVERTON MD Unavailable Unavailable VANVALKENBURG, Alexsander OVERTON MD Unavailable Unavailable VANVALKENBURG, Alexsander OVERTON MD Unavailable Unavailable VANVALKENBURG, Alexsander OVERTON MD Unavailable Unavailable VANVALKENBURG, Alexsander OVERTON MD Unavailable Unavailable VANVALKENBURG, Alexsander OVERTON MD Unavailable Unavailable VANVALKENAlexsander PAL MD Unavailable [...] Unavailable Unavailable VANVALKENAlexsander PAL MD Unavailable Unavailable DEMARTINI, M MARK PA Unavailable Unavailable DEMARTINI, M MARK PA Unavailable Unavailable DEMARTINI, M MARK PA Unavailable Unavailable DEMARTINI, M MARK PA Unavailable Unavailable DEMARTINI, M MARK PA Unavailable Unavailable DEMARTINI, M MARK PA Unavailable Unavailable DEMARTINI, M MARK PA Unavailable Unavailable DEMARTINI, M MARK PA Unavailable Unavailable DEMARTINI, M MARK PA Unavailable Unavailable DEMARTINI, M MARK PA Unavailable Unavailable DEMARTINI, M MARK PA Unavailable Unavailable DEMARTINI, M MARK PA Unavailable Unavailable DEMARTINI, M MARK PA Unavailable Unavailable DEMARTINI, M MARK PA Unavailable Unavailable DEMARTINI, M MARK PA Unavailable Unavailable DEMARTINI, M MARK PA Unavailable Unavailable DEMARTINI, M MARK PA Unavailable Unavailable DEMARTINI, M MARK PA Unavailable Unavailable DEMARTINI, M MARK PA Unavailable Unavailable DEMARTINI, M MARK PA Unavailable Unavailable DEMARTINI, M MARK PA Unavailable Unavailable DEMARTINI, M MARK PA Unavailable Unavailable DEMARTINI, M MARK PA Unavailable Unavailable DEMARTINI, M MARK PA Unavailable Unavailable DEMARTINI, M MARK PA Unavailable Unavailable DEMARTINI, M MARK PA Unavailable Unavailable DEMARTINI, M MARK PA Unavailable Unavailable DEMARTINI, M MARK PA Unavailable Unavailable DEMARTINI, M MARK PA Unavailable Unavailable DEMARTINI, M MARK PA Unavailable Unavailable DEMARTINI, M MARK PA Unavailable Unavailable DEMARTINI, M MARK PA Unavailable Unavailable DEMARTINI, M MARK PA Unavailable Unavailable DEMARTINI, M MARK PA Unavailable Unavailable DEMARTINI, M MARK PA Unavailable Unavailable DEMARTINI, M MARK PA Unavailable Unavailable DEMARTINI, M MARK PA Unavailable Unavailable DEMARTINI, M MARK PA Unavailable Unavailable DEMARTINI, M MARK PA Unavailable Unavailable DEMARTINI, M MARK PA Unavailable Unavailable DEMARTINI, M MARK PA Unavailable Unavailable DEMARTINI, M MARK PA Unavailable Unavailable DEMARTINI, M MARK PA Unavailable Unavailable DEMARTINI, M MARK PA Unavailable Unavailable DEMARTINI, M MARK PA Unavailable Unavailable Re-disclosure Warning The records [...] is protected by Article 27-F of the [facility] Public [facility] law. If you continue you may have access to information: Regarding HIV / AIDS; Provided by facilities licensed or operated by the [facility] Office of Mental Health; or Provided by the [facility] Office for People With Developmental Disabilities. If such information is present, then the following [facility] mandated warning applies: This information has been [...] law may result in a fine or fci sentence or both. A general authorization for the release of medical or other information is NOT sufficient authorization for further disc losure. Allergies and Adverse Reactions Type Description Substance Reaction Status Data Source(s ) Propensity to adverse reactions NO KNOWN ALLERGIES NO KNOWN [facility] Family History Family Member Name Family Member Gender Family Member Status Date o f Status Description Data Source(s) Unknown Unknown Problem [facility] ([facility]) Encounters Encounter Providers Location Date Indications Data Source(s ) Emergency Attender: Jonathan Ortiz MDConsultant: PCP NO 04/06/2021 11:14:00 AM EST - 04/06/2021 04:36:00 PM [facility] Patient discharged. Outpatient Attender: Mercedes Jiménez MD Physical Therapy 03/30 01:15:00 PM EST [facility] ([facility]) Outpatient Attender: RONDA RUBY MSN, NDT INSPECTOR-C Main Office 03/23/2021 08:15:00 AM EST [facility] ([facility] ) Outpatient Attender: APOLINAR BAÑUELOS NP Physical Therapy 02:45:00 PM EDT [facility] ([facility]) Outpatient Attender: JOMAR LUJAN MDReferrer : MARK PEREZ [id number] 03/09/2021 12:00:00 AM EDT - 03/20/2021 10:28:11 AM [facility] Outpatient Referrer: MARK PEREZ 03/09/2021 12:00:00 AM EDT Pain in left ankle and joints of left foot [facility] Pain in left ankle and joints of left fo ot Outpatient Attender: Real Kent MD Main Office 03/07/2021 01:15:00 PM EDT [facility] ([facility]) Outpatient Attender: Real Kent MD Main Office 02/28/2021 09:45:00 AM EDT [facility] ([facility]) Outpatient Attender: Real Kent MD Main Office 02/14/2021 10:15:00 AM EDT [facility] ([facility]) Outpatient Attender: SUZETTE BACA MD Main Office 01/16/2021 02:15:00 PM EDT [facility] ([facility]) Outpatient Attender: SUZETTE BACA MD Main Office 01/08/2021 01:30:00 PM EDT [facility] ([facility]) Outpatient Attender: JOMAR LUJAN MDReferrer: MARK PEREZ 01/05/2021 12:00:00 AM Health system Outpatient Referrer: MARK PEREZ 01/05/2021 12:00: 00 AM Health system Outpatient Attender: JOMAR LUJAN MDReferrer: MARK PEREZ 12/13/2020 12:00:00 AM Health system Outpatient Referrer: MARK PEREZ 12/13/2020 12:00: 00 AM Health system Outpatient Attender: MARK PEREZ [id number] 11/07/2020 12:00:00 AM Health system Outpatient Referrer: MARK PEREZ 11/07/2020 12:00:00 AM EDT Pain in left ankle and joints of left [facility] Pain in left ankle and joints of left fo ot Outpatient Referrer: MARK PEREZ 11/07/2020 12:00:00 AM EDT Pain in left ankle and joints of left [facility] Pain in left ankle and joints of left fo ot Outpatient Attender: DYANA CARDENAS MD Main Office 10/30/2020 10:45:00 A M EDT [facility] ([facility]) Outpatient Attender: GIANA PATTON RPA 10/28 06:17:19 PM EDT - 10/28/2020 06:28:58 PM EDT [facility] ([facility] ) Outpatient Attender: DYANA CARDENAS MD Main Office 10/25/2020 09:45:00 A M EDT [facility] ([facility]) Outpatient Attender: DYANA CARDENAS MD Main Office 07/31/2020 10:15:00 A M EDT [facility] ([facility]) Outpatient Attender: DYANA CARDENAS MD Main Office 06/20/2020 02:00:00 P M EST [facility] ([facility]) Outpatient Attender: DYANA CARDENAS MD Main Office 06/19/2020 09:15:00 A M EST [facility] ([facility]) Outpatient Attender: Shraddha PEREZ 12:30:43 PM EST - 06/17/2020 01:19:18 PM EST [facility] ([facility] ) Outpatient Attender: DYANA CARDENAS MD Main Office 06/05/2020 01:15:00 P M EST [facility] ([facility]) Immunizations Vaccine Date Status Description Data Source(s) COVID-19 VACCINE Moderna 03/05/2021 12:00:00 AM EDT completed [facility] Vaccine Series Complete: YESThis Data wa s Submitted to [facility] Via [employer]. COVID-19 VACCINE Moderna 02/05/2021 12:00:00 AM EDT completed [facility] Vaccine Series Complete: NOThis Data was Submitted to [facility] Via [employer]. Medications Medication Brand Name Start Date Product Form Dose Route Admi nistrative Instructions Pharmacy Instructions Status Indications Reaction Description Data Source(s) 10 mg 04/06/2021 12:00:00 AM EST tablet 30 TAKE ONE TABLET BY MOUTH THREE TIMES A DAY TAKE ONE TABLET BY MOUTH THREE TIMES A DAY SOLD: 04/06/2021 [facility] 300 mg 04/06/2021 12:00:00 AM EST capsule 14 TAKE ONE CAPSULE BY MOUTH TWICE A DAY TAKE ONE CAPSULE BY MOUTH TWICE A DAY SOLD: 04/06/2021 [facility] 0.12-0.015 mg/24 hr 03/06/2021 12:00:00 AM EDT ring 3 INSERT 1 RING VAGINALLY FOR 21 DAYS THEN IMMEDIATELY REPLACE INSERT 1 RING VAGINALLY FOR 21 DAYS THEN IMMEDIATELY REPLACE SOLD: 03/07/2021 [facility] 325 mg (65 mg iron) 03/03/2021 12:00:00 AM EDT tablet 60 TAKE ONE TABLET BY MOUTH TWICE A DAY FOR 3 MONTHS TAKE ONE TABLET BY MOUTH TWICE A DAY FOR 3 MONTHS SOLD: 03/03/2021 [facility] ferrous sulfate 325 MG Oral Tablet Ferrous Sulfate 03/02/2021 12:00 :00 AM EDT ORAL active [facility] ([facility]) 17 gram/dose 03/02/2021 12:00:00 AM EDT powder [address] 100GM IN 32 OZ GATORADE - CONSUME IN 203 HR MAY REPEAT FOR 3 DAYS UNTIL CLEAR THEN START 17GM IN 8OZ FLUID DAILY PLACE 100GM IN 32 OZ GATORADE - CONSUME IN 203 HR MAY REPEAT FOR 3 DAYS UNTIL CLEAR THEN START 17GM IN 8OZ FLUID DAILY SOLD: 03/03/2021 [facility] Bisacodyl 5 MG Delayed Release Oral Tablet [Dulcolax] Dulcol ax 02/28/2021 12:00:00 AM EDT active M [facility]ENT ([facility]) 5 mg 02/28/2021 12:00:00 AM EDT tablet,delayed release (DR/EC) 3 TAKE 1 TABLET BY MOUTH 2 HR AFTER MIRALAX TAKE 1 TABLET BY MOUTH 2 HR AFTER MIRALAX SOLD: 03/03/2021 [facility] POLYETHYLENE GLYCOL 3350 142 MG/ML Oral Solution [Miralax] M iralax 02/28/2021 12:00:00 AM EDT active M [facility]ENT ([facility]) Naproxen 500 MG Delayed Release Oral Tablet NAPROXEN 02/09 12:00:00 AM EDT tablet,delayed release (DR/EC) 30 TAKE ONE TABLET BY MOUTH EVERY 12 HOURS NEEDED FOR PAIN, WITH FOOD TAKE ONE TABLET BY MOUTH EVERY 12 HOURS NEEDED FOR PAIN, WITH FOOD SOLD: 03/03/2021 [facility] Naproxen 500 MG Delayed Release Oral Tablet Naproxen 02/09 12:00:00 AM EDT ORAL active [facility] ( [facility]) 1 % 02/14/2021 12:00:00 AM EDT cream 30 APPLY TO RASH ON NECK TWO TIMES A DAY APPLY TO RASH ON NECK TWO TIMES A DAY SOLD: 02/14/2021 [facility] No Active Medications 02/14/2021 12:00:00 AM EDT completed [facility] ([facility]) cefdinir 300 MG Oral Capsule Cefdinir 02/14/2021 12:00:00 AM EDT ORAL completed [facility] ([facility]) Clotrimazole 10 MG/ML Topical Cream Clotrimazole 02/14/2021 12:00:00 AM EDT active [facility] ([facility]) 300 mg 02/14/2021 12:00:00 AM EDT capsule 20 TAKE ONE CAPSULE BY MOUTH TWICE A DAY FOR 10 DAYS TAKE ONE CAPSULE BY MOUTH TWICE A DAY FOR 10 DAYS SOLD : 02/14/2021 [facility] Loestrin Fe 28 Day Pack 1 mg-10 mcg (24)/10 mcg (2) NORETHINDRONE-E.ESTRADIOL-IRON 11/01/2020 12:00:00 AM EDT tablet 28 TAKE ONE TABLET BY MOUTH EVERY DAY TAKE ONE TABLET BY MOUTH EVERY DAY SOLD: 11/18/2020 [facility] 500 mg 10/30/2020 12:00:00 AM EDT tablet 3 TAKE ONE TABLET BY MOUTH EVERY DAY FOR 3 DAYS TAKE ONE TABLET BY MOUTH EVERY DAY FOR 3 DAYS SOLD: 11/01/2020 [facility] 800 mg 10/29/2020 12:00:00 AM EDT tablet 30 TAKE ONE TABLET BY MOUTH THREE TIMES A DAY FOR 10 DAYS TAKE ONE TABLET BY MOUTH THREE TIMES A DAY FOR 10 DAYS SOLD: 10/30/2020 [facility] Clonidine Hydrochloride 0.1 MG Oral Tablet CLONIDINE HCL 08/01/2020 12:00:00 AM EDT tablet 45 TAKE ONE AND ONE-HALF TABLET S BY MOUTH AT BEDTIME TAKE ONE AND ONE-HALF TABLETS BY MOUTH AT BEDTIME SOLD: 08/02/2020 [facility] Clonidine Hydrochloride 0.1 MG Oral Tablet CLONIDINE HCL 08/01/2020 12:00:00 AM EDT tablet 45 TAKE ONE AND ONE-HALF TABLET S BY MOUTH AT BEDTIME TAKE ONE AND ONE-HALF TABLETS BY MOUTH AT BEDTIME SOLD: 02/14/2021 [facility] Cathleen Fe 05/31 28 Day Pack 1 mg-20 mcg (21)/75 mg (7) NORETHINDRONE ACETATE- ETHINYL ESTRADIOL/FERROUS FUMARATE 06/28/2020 12:00:00 AM EST tablet 140 TAKE ONE TABLET BY MOUTH DIRECTED BY PACKET INCLUDING THE IRON PILLS TAKE ONE TABLET BY MOUTH DIRECTED BY PACKET INCLUDING THE IRON PILLS SOLD: 06/30/2020 [facility] Loestrin Fe 05/31 Loestrin Fe 20 06/27/2020 12:00:00 AM EST active [facility] ([facility] ) 800 mg 06/26/2020 12:00:00 AM EST tablet 30 TAKE ONE TABLET BY MOUTH EVERY 8 HOURS NEEDED FOR PAIN TAKE ONE TABLET BY MOUTH EVERY 8 HOURS A S NEEDED FOR PAIN SOLD: 06/30/2020 [facility] 875-125 mg 06/17/2020 12:00:00 AM EST tablet 20 TAKE ONE TABLET BY MOUTH TWO TIMES A DAY FOR 10 DAYS TAKE ONE TABLET BY MOUTH TWO TIMES A DAY FOR 10 DAYS SOLD: 06/17/2020 [facility] 17 gram 06/16/2020 12:00:00 AM [...] CONSTIPATION DIRECTED SOLD: 06/16/2020 [facility] 5 mg 06/16/2020 12:00:00 AM EST tablet,delayed release (DR/EC) 10 TAKE ONE TABLET BY MOUTH AT NOON, AFTER TAKING MIRALAX IN THE MORNING FOR 10 DAYS TAKE ONE TABLET BY MOUTH AT NOON, AFTER TAKING MIRALAX IN THE MORNING FOR 10 DAYS SOLD: 06/16/2020 [facility] Bisacodyl 5 MG Delayed Release Oral Tablet Bisacodyl Ec 06/12/2020 12:00:00 AM EST ORAL active [facility] ([facility]) Glycerin 2000 MG Rectal Suppository Glycerin (Adult) 06/12/2020 12:00:00 AM EST active [facility] ( [facility]) 5 mg 06/12/2020 12:00:00 AM EST [...] MOUTH EVERY DAY SOLD: 06/08/2020 [facility] 17 gram/dose 06/06/2020 12:00:00 AM EST powder 238 MIX 1 CAPFUL WITH FOOD AND TAKE BY MOUTH DAILY, TITRATE TO EFFECT MIX 1 CAPFUL WITH FOOD AND TAKE BY MOUTH DAILY, TITRATE TO EFFECT SOLD: 06/06/2020 [facility] ferrous sulfate 325 MG Delayed Release Oral Tablet Ferrous S ulfate 06/06/2020 12:00:00 AM EST ORAL active M [facility] ([facility]) 20 mg 06/06/2020 12:00:00 AM EST capsule,delayed release (DR/EC) 30 TAKE ONE CAPSULE BY MOUTH EVERY DAY TAKE ONE CAPSULE BY MOUTH EVERY DAY SOLD: 06/06/2020 [facility] Omeprazole 20 MG Delayed Release Oral Capsule Omeprazole 06/05/2020 12:00:00 AM EST ORAL active [facility] ([facility]) POLYETHYLENE GLYCOL 3350 142 MG/ML Oral Solution [Miralax] M iralax 06/05/2020 12:00:00 AM EST ORAL active M [facility] ([facility]) Insurance Providers Payer name Policy type / Coverage type Policy ID Covered alliance party ID Covered alliance party's relationship to corrales Policy Corrales Plan Information [employer] [place] [employer] [id number] Family Dependent [id number] [employer] [place] [employer] [id number] Family Dependent [id number] [employer] [place] Commercial [id number] Family Dependent [id number] [employer] [place] [employer] [id number] Family Dependent [id number] [employer] [place] Commercial [id number] Family Dependent [id number] [employer] [place] [employer] [id number] Family Dependent [id number] [employer] [place] [employer] [id number] Family Dependent [id number] [employer] [place] [employer] [id number] Family Dependent [id number] [facility] [id number] Child [id number] [employer] [place] [employer] [id number] Family Dependent [id number] [employer] [place] [employer] [id number] Family Dependent [id number] [employer] [place] [employer] [id number] Family Dependent [id number] [employer] [place] [employer] [id number] Family Dependent [id number] [employer] [place] [employer] [id number] Family Dependent [id number] [employer] [place] [employer] [id number] ..[id number] Family Dependent [id number] D Managed Care [facility] P [id number] S [id number] [facility]-Medicaid([facility]) Medicaid [id number] Self [id number] MEDICAID M [id number] Self [id number] [facility]) Commercial [id number] Self [id number] [facility]) Commercial [id number] Self [id number] [facility]) Commercial [id number] Self [id number] [facility]) Commercial [id number] Self [id number] [facility]) Commercial [id number] Self [id number] [facility]) Commercial [id number] Self [id number] [facility]) Commercial [id number] Self [id number] [facility]) Commercial [id number] Self [id number] [facility]) Commercial [id number] Self [id number] [facility]) Commercial [id number] Self [id number] [facility]) Commercial [id number] Self [id number] [facility]) Commercial [id number] Self [id number] [facility]) Commercial [id number] Self [id number] [facility]) Commercial [id number] Self [id number] [facility] Commercial [id number] Self [id number] [employer] Commercial [id number] Self [id number] MVP I [id number] Self [id number] [employer] Commercial [id number] Self [id number] [employer] Commercial [id number] Self [id number] MVP I [id number] Self [id number] MVP I [id number] Self [id number] MVP I [id number] Self [id number] MVP I [id number] Self [id number] 100 MVP I [id number] Self [id number] [employer] 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 [id number] Self [id number] Medicaid O [id number] S [id number] [employer]UE [employer] PLAN [id number] SP [id number] MVP MCDHMO [id number] SP [id number] MVP MEDICAID HMO -O/P [id number] 18 [id number] MVP MCDHMO [id number] SP [id number] MVP HEALTH CARE O [id number] S [id number] MVP Commercial [id number] Self [id number] MVP Commercial [id number] Self [id number] [facility] [id number] S [id number] MVP HEALTHCARE [id number] S [id number] MEDICAID [id number] S [id number] MVP Commercial [id number] Self [id number] Pupil Benefit Plan [facility] [id number] Self [facility] Commercial [id number] Self [id number] [facility] [id number] SP [id number] Pupil Benefit Plan [facility] [id number] Self [facility] Commercial [id number] Self [id number] [facility] O [id number] S [id number] [facility] [id number] SP [id number] [facility] [id number] SP [id number] [facility] [id number] SP [id number] UN COMMUNITY PLAN [facility] [id number] SP [id number] Pupil Benefit Plan [facility] [id number] Self [facility] ([facility]) [id number] Self [id number] [facility]) O [id number] S [id number] UN COMMUNITY PLAN [facility] [id number] SP [id number] [facility] (HMO) [id number] Self [id number] [facility] (HMO) [id number] Self [id number] [facility] (HMO) [id number] Self [id number] [facility] [id number] SP [id number] BCBS/[employer] Medigap Part B [id number] Family Dependent [id number] [facility] ([facility]) [id number] Self [id number] [employer] Commercial [id number] Family Dependent [id number] MEDICAID [id number] SP [id number] BCBS [place] PPO 302/307 [id number] Self Pay P na S na [employer] Commercial [id number] Family Dependent D EBS RMSCO O [id number] P [id number] [facility]) P [id number] S [id number] Medicaid Dental S [id number] S [id number] O BLUE P [id number] S [id number] P UNAVAILABLE UNAVAILA BLE D [facility] P [id number] S [id number] D [facility] O [id number] S [id number] Problems, Conditions, and Diagnoses Code Display Name Description Problem Type Effective Dates Data Source(s) M69580 CONTACT WITH AND SUSPECTED EXPOSURE TO C OVID-19 CONTACT WITH AND SUSPECTED EXPOSURE TO COVID-19 Diagnosis 04/06/2021 11:14:00 AM [facility] K529 Noninfective gastroenteritis and colitis , unspecified Noninfective gastroenteritis and colitis, unspecified Diagnosis 04/06/2021 11:14:00 AM [facility] N3001 Acute cystitis with hematuria Acute cystitis with madeleine turia Diagnosis 04/06/2021 11:14:00 AM [facility] R1031 Right lower quadrant pain Right lower quadrant pain Di agnosis 04/06/2021 11:14:00 AM [facility] M25.372 Other instability, left ankle Other instability, left ankle Diagnosis 03/09/2021 12:22:16 PM Health system G89.29 Other chronic pain Other chronic pain Diagnosis 12:22:16 PM Health system M25.572 Pain in left ankle and joints of left fo ot Pain in left ankle and joints of left foot Diagnosis 03/09/2021 12:22:16 PM [facility] Surgeries/Procedures Procedure Description Date Indications Data Source(s) Echography Soft Tissue Hand & Neck 03/30/2021 12:00:00 AM EST [facility] ([facility]) OFFICE OUTPATIENT VISIT 25 MINUTES 03/30/2021 12:00:00 AM EST [facility] ([facility]) OFFICE OUTPATIENT VISIT 15 MINUTES 03/23/2021 12:00:00 AM EST [facility] ([facility]) OFFICE OUTPATIENT NEW 45 MINUTES 03/14/2021 12:00:00 A M EDT [facility] ([facility]) OFFICE OUTPATIENT NEW 60 MINUTES 03/14/2021 12:00:00 A M EDT [facility] ([facility]) OFFICE OUTPATIENT VISIT 25 MINUTES 03/07/2021 12:00:00 AM EDT [facility] ([facility]) OFFICE OUTPATIENT VISIT 25 MINUTES 02/28/2021 12:00:00 AM EDT [facility] ([facility]) OFFICE OUTPATIENT VISIT 25 MINUTES 02/14/2021 12:00:00 AM EDT [facility] ([facility]) OFFICE OUTPATIENT VISIT 25 MINUTES 01/16/2021 12:00:00 AM EDT [facility] ([facility]) OFFICE OUTPATIENT VISIT 15 MINUTES 01/08/2021 12:00:00 AM EDT [facility] ([facility]) OFFICE OUTPATIENT VISIT 15 MINUTES 10/30/2020 12:00:00 AM EDT [facility] ([facility]) OFFICE OUTPATIENT VISIT 25 MINUTES 10/25/2020 12:00:00 AM EDT [facility] ([facility]) OFFICE OUTPATIENT VISIT 25 MINUTES 07/31/2020 12:00:00 AM EDT [facility] ([facility]) OFFICE OUTPATIENT VISIT 5 MINUTES 06/20/2020 12:00:00 AM EST [facility] ([facility]) OFFICE OUTPATIENT VISIT 5 MINUTES 06/19/2020 12:00:00 AM EST [facility] ([facility]) OBSERVATION CARE DISCHARGE MANAGEMENT 06/15/2020 12:00 :00 AM EST [facility] ([facility]) INITIAL OBSERVATION CARE/DAY LOW SEVERITY 06/14/2020 1 2:00:00 AM EST [facility] ([facility]) OFFICE OUTPATIENT VISIT 25 MINUTES 06/05/2020 12:00:00 AM EST [facility] ([facility]) Results ID Date Data Source [id number] 04/06/2021 11:14:00 AM EST [facility] 1 OrderSheet [facility] Emergency Department [address] [place] [address] Phone #: [phone] nfc- [phone] 04/06/2021 11:02 Patient: GRANT WALTER Sex: F : 2000 Age: 20yWEIGHT:97.5 kg (S) HEIGHT:68 inches (S) BMI:32.7ALLERGIES: No Known Drug AllergyCHIEF COMPLAINT: abdominal pain, vomiting, nauseaDIAGNOSIS: Acute urinary tract infection with cystitis and hematuria. Coronavirus: COVID- 19. COVID-19presumed (confirmatory testing pending) with gastroenteritis.LAB ORDERSOrder Description Priority Entered Acknowledged InitialedCBC w Diff STAT 13:23 04/06/2021 13:30 Evangelista Richards RN PA;CMP STAT 13:23 04/06/20 13:30 Evangelista Richards RN PA;Beta-HCG, Qual STAT 13:23 04/06/2021 13:30 Ainsley Richards RN PA;Lactic Acid STAT 13:23 04/06/2021 13:30 Evangelista Richards RN PA;Lipase STAT 13:23 04/06/2021 13:30 Evangelista PEREZ;UA Reflex to UA STAT 13:23 04/06/2021 16:00 Joel Stephens PA;HCG Serum Quant STAT 14:49 04/06/2021 14:49 Ro Strar Jennifer Jennifer R.NSola RSolaNSola; Verbal order per; Jah Melendez PACORONAVIRUS STAT 16:19 04/06/2021 16:33 PeterCOVID-19 Jah Richards RN(Symptomatic as PA;Defined by CDC)(04/05/2021) (NotFirst Test) (NotHospitalized) (Not) (Not 2 OrderSheet [facility] Emergency Department [address] [place] [address] Phone #: ext- [phone] 04/06/2021 11:02 Patient: GRANT WALTER Sex: F : 2000 Age: 20yResident inCongregate CareSetting) ([facility])DIAGNOSTIC STUDY ORDERSOrder Description Priority Entered Acknowledged InitialedCT Abd PEL W/ IV STAT 13:23 04/06/2021 13:30 PeterContrast Only Jah Richards RN(Oxygen?(No)) PA;(IV?(Yes)) NOTES: RLQ PAIN Reason for Study: Abdominal Pain, VomitingMEDICATION/IV/DRIP/FLUID ORDERSOrder Description Priority Entered Acknowledged InitialedOfirmev IV 1000 mg 13:23 04/06/2021 13:38 Evangelista(NOW x1, Infuse Jah Richards RNover 15 minutes) PA;NS IV 1000 mL 13:23 04/06/2021 13:37 EvangelistaBolus: : Bolus 1000 Jah Richards RNmL (X1) PA;Zofran IVP 8 mg 13:23 04/06/2021 13:37 Evangelista Richards RN PA;Reglan 10 mg IVP 15:51 04/06/2021 16:02 PeterX1 dose: 10 mg Jah Richards RN(NOW x1) PA;Morphine IVP 4 mg 15:51 04/06/2021 16:01 Evangelista(HIGH ALERT Jah Richards RNMEDICATION) PA;GENERAL ORDERSOrder Description Priority Entered Acknowledged Initialed[Electronically signed by Evangelista Richards RN (16:36 04/06/2021)][Electronically signed by Jah Melendez (22:01 04/06/2021)][Electronically locked by Evangelista Richards RN (16:36 04/06/2021)] Name Value Range Interpretation Code Description Data Re rce(s) Supporting Document(s) ID Date Data Source [id number] 04/06/2021 11:14:00 AM EST [facility] 1 Medication Reconciliation Report [facility] Emergency Department [address] [place] [address] Phone #: [phone] ofh- [phone] 04/06/2021 11:02 Patient: GRANT WALTER Sex: F : 2000 Age: 20yWeight: 97.5 kgHeight/Length: 68 in.BMI: 32.7ALLERGIES: No Known Drug AllergyThe patient's Home Medications are listed below:CONTINUE TAKING THE FOLLOWING MEDICATIONS: cloNIDine HCl Oral (0.1 mg) 1 tablet, daily Iron Oral (325 (65 Fe) mg) 1 tablet, daily Vitamin D3 Oral 4000 ut, dailyThe source(s) of the original Home Medication information:Not obtained.The following Medications were given to the patient in the Emergency Department:NS [IV] IV Fluids bolus 0, then 1000 mL/hr, administered: 13:37 04/06/2021Zofran [IVP] IVP 8 mg, administered: 13:37 04/06/2021ofirmev Drip IV bolus 0, then 1000 mg, administered: 13:38 04/06/2021NS [IV] IV Fluids bolus 0, then 1000 mL/hr, administered: 16:01 04/06/2021Morphine [IVP] IVP 4 mg, administered: 16:01 04/06/2021eglan [IVP] IVP 10 mg, administered: 16:02 04/06/2021The following Medications were prescribed to the p atient:metoclopramide 10 mg tablet Take 1 tablet three times a day for 10 days -- Dispense 30 tablet. Refills:0. Substitution permitted.Ph[id number] - [id number] ; [place] [address]. FaxNumber: [phone]. 2 Medication Reconciliation Report [facility] Emergency Department [address] [place] [address] Phone #: [phone] vkm- [phone] 04/06/2021 11:02 Patient: GRANT WALTER Sex: F : 2000 Age: 20ycefdinir 300 mg capsule Take 1 capsule twice a day for 7 days -- Dispense 14 capsule. Refills: 0.Substitution permitted.[phone] - [id number] ; [place] [address]. FaxNumber: . -- CHRIS Kim Name Value Range Interpretation Code Description Data Re rce(s) Supporting Document(s) ID Date Data Source [id number] 04/06/2021 11:14:00 AM EST [facility] 1 Medication Administration Record [facility] Emergency Department [address] [place] [address] Phone #: ext- [phone] 04/06/2021 11:02 Patient: GRANT WALTER Sex: F : 2000 Age: 20yWeight: 97.5 kgHeight/Length: 68 inBMI: 32.7ALLERGIES: No Known Drug Allergy Date/Time Medication Administered Medication OrderedStart ofirmev * Ofirmev IV 1000 mg (NOW x1,13:38 04/06/2021 Dose: 1000 mg * Drip IV Infuse over 15 minutes)Evangelista Richards RN----Stop14:00 1PThelma Stern NS [IV] NS IV 1000 mL Bolus: : Bolus [id number] 04/06/2021 Dose: IV Fluids mL (X1)Evangelista Richards RN Rate: 1000 mL/hr over 1 hour(s)---- Dispensed: 1000 mL bagStop Site: #1 right AC15:12 1PThelma Stern NS [IV] NS IV 1000 mL Bolus: : Bolus [id number]:01 04/06/2021 Dose: IV Fluids mL (X1)Evangelista Richards RN Rate: 1000 mL/hr over 1 hour(s)---- Dispensed: 1000 mL bagStop Site: #1 right AC16:30 1Pralf Richards RNGiven ZOFRAN [IVP] (ONDANSETRON HCL) Zofran IVP 8 mg13:37 04/06/2021 Dose: 8 mg IVPPralf Richards RN Site: #1 right ACGiven REGLAN [IVP] (METOCLOPRAMIDE Reglan 10 mg IVP X1 dose: 10 mg16:02 04/06/2021 HCL) (NOW x1)Evangelista Richards RN Dose: 10 mg IVP Site: #1 right ACGiven MORPHINE [IVP] Morphine IVP 4 mg (HIGH ALERT16:01 04/06/2021 Dose: 4 mg IVP MEDICATION)Evangelista Richards RN Site: #1 right AC Name Value Range Interpretation Code Description Data Re rce(s) Supporting Document(s) ID Date Data Source [id number] 04/06/2021 11:14:00 AM EST [facility] 1 General Instructions [facility] Emergency Department [address] [place] [address] Phone #: ext- [phone] 04/06/2021 11:02 Patient: GRANT WALTER Sex: F : 2000 Age: 20y Acute urinary tract infection with cystitis and hematuria. Coronavirus: COVID-19. COVID-19 presumed (confirmatory testing pending) with gastroenteritis.INSTRUCTIONS Do not work (until covid results complete). Drink plenty of fluids. Warnings: Further evaluation is necessary. It is very important to follow up with a healthcare provider. GENERAL WARNINGS: Return or contact your physician immediately if your condition worsens or changes unexpectedly, if not improving as expected, or if other problems arise. SPECIFICALLY, return if you develop the inability to keep fluids down, blood in vomitus, blood in diarrhea, fainting or lightheadedness; or if there is no improvement in the pain in the abdomen. Your Current Medications: Your current home medications have been reviewed. CONTINUE TAKING THE FOLLOWING MEDICATIONS: cloNIDine HCl Oral : Tablet 0.1 mg, 1 tablet daily. Iron Oral : Tablet 325 (65 Fe) mg, 1 tablet daily. Vitamin D3 Oral : 4000 ut daily. Prescription Medications: metoclopramide 10 mg tablet Take 1 tablet three times a day for 10 days -- Dispense 30 tablet. Refills: 0. Substitution permitted. [id number] - [id number] ; [place] [address]. . cefdinir 300 mg capsule Take 1 capsule twice a day for 7 days -- Dispense 14 capsule. Refills: 0. Substitution permitted. [facility] #[id number] - [id number] ; [place] [address]. . Follow-up: Follow up with your doctor as needed. Reason for referral: evaluation and treatment. Summary of care provided to patient. Understanding of the discharge instructions verbalized by patient. 2 General Instructions [facility] Emergency Department [address] [place] [address] Phone #: [phone]- [phone] 04/06/2021 11:02 Patient: GRANT WALTER Sex: F : 2000 Age: 20y ADDITIONAL INFORMATIONBladder Infection, Female (Adult)Urine normally doesn't have any germs (bacteria) in it. But bacteria can get into the urinary tractfrom the skin around the rectum. Or they can travel in the blood from other parts of the b lidia. Oncethey are in your urinary tract, they can cause infection in these areas: The urethra (urethritis) The bladder (cystitis) The kidneys (pyelonephritis)The most common place for an infection is in the bladder. This is called a bladder infection. This isone of the most common infections in women. Most bladder infections are easily treated. They arenot serious unless the infection spreads to the kidney.The terms bladder infection, UTI, and cystitis are often used to describe the same thing. But they arenot always the same. Cystitis is an inflammation of the bladder. The most common cause of cystitis isan infection.SymptomsThe infection causes inflammation in the urethra and bladder. This causes many of the symptoms.The most common symptoms of a bladder infection are: 3 General Instructions [facility] Emergency Department [address] [place] [address] Phone #: ext- [phone] 04/06/2021 11:02 Patient: GRANT WALTER Sex: F : 2000 Age: 20y Pain or burning when urinating Having to urinate more often than normal Urgent need to urinate Only a small amount of urine comes out Blood in urine Belly (abdominal) discomfort. This is often in the lower belly above the pubic bone. Cloudy urine Strong- or bad-smelling urine Unable to urinate (urinary retention) Unable to hold urine in (urinary incontinence) Fever Loss of appetite Confusion (in older adults)CausesBladder infections are not contagious. You can't get one from someone else, from a toilet seat, orfrom sharing a bath.The most common cause of bladder infections is bacteria from the bowels. The bacteria get onto theskin around the opening of the urethra. From there, they can get into the urine. Then they travel up tothe bladder, causing inflammation and infection. This often happens because of: Wiping incorrectly after urinating. Always wipe from front to back. Bowel incontinence Procedures such as having a catheter put in Older age Not emptying your bladder. This can give bacteria a chance to grow in your urine. Fluid loss (dehydration) Constipation 4 General Instructions [facility] Emergency Department [address] [place] [address] Phone #: [phone]- [phone] 04/06/2021 11:02 Patient: GRNAT WALTER Sex: F : 2000 Age: 20y Having sex Using a diaphragm for controlTreatmentBladder infections are diagnosed by a urine test and urine culture. They are treated with antibiotics.They often clear up quickly without problems. Treatment helps prevent a more serious kidneyinfection.MedicinesMedicines can help in the treatment of a bladder infection: Take antibiotics until they are used up, even if you feel better. It's important to finish them to make sure the infection has cleared. You can use acetaminophen or ibuprofen for pain, fever, or discomfort, unless another medicine was prescribed. If you have lo ng-term (chronic) liver or kidney disease, talk with your healthcare provider before using these medicines. Also talk with your provider if you've ever had a stomach ulcer or GI (gastrointestinal) bleeding, or are taking blood-thinner medicines. If you are given phenazopydridine to reduce burning with urination, it will make your urine a bright orange color. This can stain clothing.Care and preventionThese self-care steps can help prevent future infections: Drink plenty of fluids. This helps to prevent dehydration and flush out your bladder. Do this unless you must restrict fluids for other health reasons, or your healthcare provider told you not to. Clean yourself correctly after going to the bathroom. Wipe from front to back after using the toilet. This helps prevent the spread of bacteria. Urinate more often. Don't try to hold urine in for a long time. Wear loose-fitting clothes and cotton underwear. Don't wear tight-fitting pants. Improve your diet and prevent constipation. Eat more fresh fruits and vegetables, and fiber. Eat less junk foods and fatty foods. Don't have sex until your symptoms are gone. Don't have caffeine, alcohol, and spicy foods. These can irritate your bladder. 5 General Instructions [facility] Emergency Department [address] [place] [address] Phone #: [phone]- [phone] 04/06/2021 11:02 Patient: GRANT WALTER Sex: F : 2000 Age: 20y Urinate right after you have sex to flush out your bladder. If you use control pills and have frequent bladder infections, discuss it with your healthcare provider.Follow-up careCall your healthcare provider if all symptoms are not gone after 3 days of treatment. This is especiallyimportant if you have repeat infections.If a culture was done, you will be told if your treatment needs to be changed. If directed, you cancall to find out the results.If X-rays were done, you will be told if the results will affect your treatment.Call 911Call 911 if any of the following occur: Trouble breathing Hard to wake up or confusion Fainting (loss of consciousness) Fast heart rateWhen to get medical adviceCall your healthcare provider right away if any of these occur: Fever of 100.4F (38.0C) or higher, or as directed by your healthcare provider Symptoms are not better after 3 days of treatment Back or belly pain that gets worse Repeated vomiting, or unable to keep medicine down Weakness or dizziness Vaginal discharge Pain, redness, or swelling in the outer vaginal area (labia) [employer]. All rights reserved. This information is not intended as a substitute for professional medical care. Alwaysfollow your healthcare professional's instructions.Coronavirus Disease 2019 (COVID-19): Overview 6 General Instructions [facility] Emergency Department [address] [place] [address] Phone #: [phone]- [phone] 04/06/2021 11:02 Patient: GRANT WALTER Sex: F : 2000 Age: 20yCoronavirus disease 2019 (COVID-19) is a respiratory illness. It's caused by a new (novel)coronavirus. There are many types of coronavirus. Coronaviruses are a very common cause of coldsand bronchitis. They may sometimes cause lung infection (pneumonia). Symptoms can range frommild to severe. Some people have no symptoms. These viruses are also found in some animals.All 50 states in the [place] have reported cases of COVID-19. Many areas report "community spread" ofCOVID-19. This means the source of the illness is not known. COVID-19 is a rapidly-emerginginfectious disease. This means that scientists are actively researching it. There are informationupdates regularly.Public health officials are working to find the source. How the virus spreads is not yet fullyunderstood, but it seems to spread and infect people fairly easily. Some people who have beeninfected in an area may not be sure how or where they were infected. The virus may be spreadthrough droplets of fluid that a person coughs or sneezes into the air. It may be spread if you touch asurface with the virus on it, such as a handle or object, and then touch your eyes, nose, or mouth.To help prevent spreading the infection, wash your hands often, or use an alcohol-based hand health and safety advisor. 7 General Instructions [facility] Emergency Department [address] [place] [address] Phone #: ext- [phone] 04/06/2021 11:02 -------- Patient: GRANT WALTER Sex: F : 2000 Age: 20yFor the latest information, visit the CDC website at www.cdc.gov/coronavirus/2019- ncov. Orcall 000-AWP-TTDH ([phone]).What are the symptoms of COVID-19?Some people have no symptoms or mild symptoms. Symptoms can also vary from person toperson. As experts learn more about COVID-19, other symptoms are being reported.Symptoms may appear 2 to 14 days after contact with the virus: Fever or chills Coughing Trouble breathing or feeling short of breath Sore throat Stuffy or runny nose Headache and body aches Fatigue Nausea, vomiting, diarrhea, or abdominal pain New loss of sense of smell or tasteYou can check your symptoms with the CDC's Coronavirus Self-Blanket Folder.What are possible complications from COVID-19?In many cases, this virus can cause i nfection (pneumonia) in both lungs. In some cases, thiscan cause . Certain people are at higher risk for complications. This includes olderadults and people with serious chronic health conditions such as heart or lung disease,diabetes, or kidney disease. It includes people with health conditions that suppress theimmune system. And it includes people taking medicines that suppress the immune system.As experts learn more about COVID-19, other complications are being reported that may belinked to COVID-19. Rarely, some children have developed severe complications calledmultisystem inflammatory syn drome in children (MIS-C). MIS-C seems to be similar toKawaski disease, a rare condition causing inflammation of blood vessels and body organs. It'snot yet known if MIS-C happens only in children, or if adults are also at risk. It's also notknown if it's related to COVID-19, because many children, but not all, have tested positive forthe virus. Experts continue to study MIS-C. The CDC advises healthcare providers to report [facility] any person under age 2121 years old who is ill enough to be in thehospital and has all of the followin General Instructions [facility] Emergency Department [address] [place] [address] Phone #: ext- [phone] 04/06/2021 11:02 Patient: GRANT WALTER Sex: F : 2000 Age: 20y A fever over 100.4F (38.0C) for more than 24 hours and a positive SARS-CoV-2 test or exposure to the virus in the last 4 weeks Inflammation in at least 2 organs such as the heart, lungs, or kidneys with lab tests that show inflammation No other diagnoses besides COVID-19 explain the child's symptomsHow is COVID-19 diagnosed?Your healthcare provider will ask about your symptoms. He or she will ask where you live, andabout your recent travel, and any contact with sick people. If your healthcare provider thinksyou may have COVID-19, he or she will consider whether to test you for COVID-19. Thisdepends on the availability of testing in your area, and how sick you are. Follow allinstructions from your healthcare provider. Guidelines for testing may change as moreinformation about the virus becomes available. Diagnostic tests are used to find a currentCOVID-19 infection. These include: Viral (molecular) test. You may also hear this called a RT-PCR test. Viral tests are very accurate. A viral test looks for the SARS-CoV-2 virus's genetic material. There are a few ways to do this. A nose-throat swab may be wiped inside your nose to the very back of your throat. Other tests are either done by nose or throat swab. Or a sample of your saliva may be taken. Availability of tests vary by location. Some test kits can be done at home but must be sent to a lab to be checked. Depending on the test, some results are back within about 30 minutes. Some tests must be sent to a lab and can take several days before the results are back. Home test kits are now available but vary by location, and some need a prescription. If you use a home kit, follow the instructions in the kit closely. Some kits get results quickly at home. Others must be sent to a lab for the results. Antigen test. This can find proteins from the SARS-CoV-2 virus. This is done by a nose or a nose-throat swab. Depending on the test, some results are back within an hour. Positive results are highly accurate, but false positives can happen, especially in places where few people have the virus. Antigen tests are more likely to miss a COVID-19 infection than a viral (molecular) test. If your antigen test is negative but you have symptoms of COVID-19, your healthcare provider may order a viral test.If your healthcare provider thinks or confirms that you have COVID-19, you may have othertests. These tests may include: Antibody blood test. Antibody tests are being looked at to find out if a person has previously been infected with the virus and may now have antibodies such as SARS AB IgG in their blood to give some immunity. The accuracy and availability of antibody tests vary. An antibody test may not be able to show if you have a current infection 9 General Instructions [facility] Emergency Department [address] [place] [address] Phone #: ext- [phone] 04/06/2021 11:02 Patient: GRANT WALTER Sex: F : 2000 Age: 20y because it can take up to a few weeks after infection to make antibodies. It's not yet known how long immunity lasts after being infected with the virus. Sputum culture. A small sample of mucus coughed from your lungs (sputum) may be collected if you have a moist cough. It may be checked for the virus or to look for pneumonia. Imaging tests. You may have a chest X-ray or CT scan.Note about reinfection and your immunityAt this time, it's unclear if people can be reinfected with COVID-19. The CDC notes that if ryan has fully recovered from COVID-19 and is retested within 3 months of the firstinfection, they may continue to have low levels of the virus in their body and test positive forCOVID-19, even though they are not spreading COVID-19. Having a positive COVID-19 testafter an infection doesn't mean you can't be reinfected. It's not yet known how long immunitylasts after being infected with the virus.How is COVID-19 treated?The FDA has approved vaccines to prevent COVID-19 in people older than 18 (one vaccine hasbeen approved for people as young as 16). or people may choose perlita vaccinated. Expert groups, including ACOG and the CDC, advise or breastfeedingpeople to talk with their healthcare provider about the vaccine.The vaccines are being rolled out to the public in phases. Check your local health departmentfor your community's roll-out plans. The vaccines are given as a shot (injection) in the armmuscle. A 1-dose or 2-dose vaccine may be given. If you get the 2-dose vaccine, the seconddose is given several weeks after the first.The most proven treatments right now are those to help your body while it fights the virus.This is known as supportive care. For serious COVID-19, you may need to stay in the hospital.Supportive care may include: Getting rest. This helps your body fight the illness. Staying hydrated. Drinking liquids is the best way to prevent dehydration. Try to drink 6 to 8 glasses of liquids every day, or as advised by your provider. Also check with your provider about which fluids are best for you. Don't drink fluids that contain caffeine or alcohol. Taking nvol-qmo-vuwqnoh (OTC) pain medicine. These are used to help ease pain and reduce fever. Follow your healthcare provider's instructions for which OTC medicine to use. 10 General Instructions [facility] Emergency Department [address] [place] [address] Phone #: ext- [phone] 04/06/2021 11:02 Patient: GRANT WALTER Sex: F : 2000 Age: 20yFor severe illness, you may need to stay in the hospital. Care during severe illness mayinclude: IV (intravenous) fluids. These are given through a vein to help keep your body hydrated. Oxygen. You may be given supplemental oxygen or ventilation with a breathing machine (ventilator). This is done so you get enough oxygen in your body. Prone positioning. Depending on how sick you are during your hospital stay, your healthcare team may turn you regularly on your stomach. This is called prone positioning. It helps increase the amount of oxygen you get to your lungs. Follow your healthcare team's instructions on position changes while you're in the hospital. Also follow their discharge advice on the best positions to help your breathing once you go home. Remdesivir. The FDA has approved an IV (intravenous) antiviral medicine called remdesivir. It works by stopping the spread of the SARS-CoV-2 virus in the body. It's approved for people in the hospital. It's for people 12 years and older who weigh more than about 88 pounds (40 kgs). Remdesivir is approved only for people who need to be treated in the hospital. In certain cases, it may also be used for people younger than 12 years or who weigh less than about 88 pounds (40 kgs).Research continues on other therapies that are still experimental. These include: COVID-19 convalescent plasma. People who have had COVID-19 and are fully recovered may be asked by their healthcare team to consider donating plasma. This is called COVID-19 convalescent plasma donation. Plasma from people fully recovered from COVID-19 may contain antibodies to help fight COVID-19 in people who are currently seriously ill with the disease. Experts don't know if the donated plasma will work well as a treatment. Research continues, and the FDA has approved it for emergency use in certain people with serious or life-threatening COVID-19. Talk with your provider to learn more about convalescent plasma donation and whether you qualify to donate. Monoclonal antibody therapy. The FDA recently approved this experimental therapy for emergency use for certain people who have a positive COVID-19 viral test and have mild to moderate symptoms but are not in the hospital. It's not widely available and is still being investigated. It's approved for people 12 years and older who weigh about 88 pounds (40 kgs) and are at high risk for severe COVID-19 and a hospital stay. This includes people who are 65 years and older and people with certain chronic conditions. Monoclonal antibody therapy is not approved for people who: o Are in the hospital with COVID-19, or 11 General Instructions [facility] Emergency Department [address] [place] [address] Phone #: ext- [phone] 04/06/2021 11:02 Patient: GRANT WALTER Sex: F : 2000 Age: 20y o Need oxygen therapy for COVID-19, or o Need oxygen therapy for a chronic condition and need to have their oxygen flow rate increased because of COVID-19.Are you at risk for COVID-19?You are at risk for COVID-19 if you have had close contact with someone with the virus, or ifyou live in or traveled to an area with cases of it. Close contact means being within 6 feet of aperson known to have COVID-19 for a total of 15 minutes or more. This could be multiple shortencounters that add up to at least 15 minutes over a 24-hour period. Recent studies suggestthat COVID-19 may be spread by people who are not showing symptoms.Date last modified: 07/17/202019993783-6409 [employer]. All rights reserved. This information is not intended as a substitute for professional medical care.Always follow your healthcare professional's instructions. You have been given the following additional information: Bladder Infection, Female (Adult) Coronavirus Disease 2019 (COVID-19)- Overview Do not work (until covid results complete).(Electronically signed by CHRIS Kim 04/06/2021 22:01) Name Value Range Interpretation Code Description Data Re rce(s) Supporting Document(s) ID Date Data Source [id number] 04/06/2021 11:14:00 AM [facility] 1 Clinical Report - Nurses [facility] Emergency Department [address] [place] [address] Phone #: ext- [phone] 04/06/2021 11:02 Patient: GRANT WALTER Sex: F : 2000 Age: 20yTRIAGEArrived by private vehicle. Historian: patient. Accompanied by family.Acuity: LEVEL 3.Chief Complaint: ABDOMINAL PAIN and NAUSEA and (HEADACHE, DIZZY).Onset. (2 days ago). ( pt states she began to have abdominal pain starting 2 days ago and yesterday shestarted with a headache and some dizziness, she reports she can not eat or drink anything due to the n/v).Treatment CERTIFIED PHARMACY TECH:None.SEPSIS SCREEN: NEGATIVE. SIRS criteria negative.LESTER COMA SCORE: 15- eyes open- spontaneous (4); best verbal response- oriented (5); bestmotor response- obeys commands (6). --13:14 04/06/21 Evangelista Richards, RN13:06 04/06/21. BP: 105/71. MAP: 82. HR: 108. RR: 18. O2 saturation: 98%. Temp: 101.2 F (oral). Painlevel now: 01/19. --13:14 04/06/21 DORYS AkinsEPSIS SCREEN: NEGATIVE. SIRS criteria positive: temperature greater than 38 degrees C (100.4degrees F) and heart rate greater than 90. --13:17 04/06/21 Evangelista Richards RN.Weight: 97.5 kg stated. Height/Length: 68 inches Per Patient. BMI: 32.7. --13:05 04/06/21 Evangelista Richards RN.MedicationscloNIDine HCl Oral (Tablet 0.1 mg) 1 tablet, daily. --13:04/06/21 Evangelista Richards RN Vitamin D3 Oral 4000 ut, daily. --13:04/06/21 Evangelista Richards RN Iron Oral (Tablet 325 (65 Fe) mg) 1 tablet, daily. --13:10 04/06/21 Evangelista Richards RN.AllergiesNo Known Drug Allergy. --13:04/06/21 Evangelista Richards RN.PROBLEMS:Anemia.Insomnia. --13:10 04/06/21 Evangelista Richards RN.ADDITIONAL SURGERIES:Left ankle. --13:10 04/06/21 Evangelista Richards RN. 2 Clinical Report - Nurses [facility] Emergency Department [address] [place] [address] Phone #: ext- [phone] 04/06/2021 11:02 Patient: GRANT WALTER Sex: F : 2000 Age: 20y History PAST MEDICAL HX: Immunizations: up-to-date. Last normal menstrual period- 1 1 / 2 ago weeks. SOCIAL HX: Never smoker. No alcohol use or drug use. No recent travel. No known contact with a sick individual. She was offered HIV testing but declined and hepatitis C testing but declined. She has not traveled outside the [place] Infectious disease exposure: No infectious disease exposure. The patient was not exposed to Coronavirus. (vaccinated for Covid). SELF HARM ASSESSMENT: Self harm assessment was performed. The patient answered "no" to the question(s) "Have you recently felt down, depressed, or hopeless?", "Do you have thoughts of harming or killing yourself?", "Do you have a plan for harming or killing yourself?", "Have you recently had thoughts about harming or killing others?", "Do you have any dangerous items in your possession?", "Have you noticed less interest or pleasure in doing things?", "Are you here because you tried to hurt yourself?" and "Have you ever tried to hurt yourself before today?". ABUSE ASSESSMENT: No report of abuse. NUTRITIONAL RISK ASSESSMENT: The nutritional risk assessment revealed no deficiencies. FUNCTIONAL ASSESSMENT: Functional assessment: no impairments noted. LEARNING NEEDS ASSESSMENT: The learning needs assessment revealed no barriers. FALL RISK ASSESSMENT: Fall risk assessment completed. No risk factors identified. SKIN INTEGRITY ASSESSMENT: Skin integrity risk assessment completed. No skin integrity risk identified. --13:14 04/06/21 Evangelista Richards RN. Interventions Identification band on patient. To treatment room. --13:14 04/06/21 Evangelista Richards RN.PHYSICAL ASSESSMENTAmbulatory to room. ( pt also re[ports a headache).GENERAL / NEURO / PSYCH: Alert. Oriented X 4. Appears in pain.HEENT: Mucous membranes are pink.RESPIRATORY: Respirations not labored. Breath sounds within normal limits.CVS: Cardiac rhythm: sinus tachycardia. Capillary refill less than 2 seconds.GI / : The patient has had nausea. Emesis noted. Abdomen soft. Abdominal tenderness in the rightupper quadrant and epigastric area. Bowel sounds within normal limits.SKIN: Skin is warm and dry. --13:16 04/06/21 Evangelista Richards RN.NURSING PROGRESS NOTESNIBP monitor and pulse oximeter placed on patient; monitor alarms on. Patient gowned. Head of bed 3 Clinical Report - Nurses [facility] Emergency Department [address] [place] [address] Phone #: ext- [phone] 04/06/2021 11:02 Patient: GRANT WALTER Sex: F : 2000 Age: 20yelevated. Reassurance given. Call light placed in reach. Side rails up. Bed placed in lowest position.Brakes of bed on. Patient ready for evaluation- ED physician notified. --13:16 04/06/21 Evangelista Richards RN13:30 04/06/2021 Site #1 started via IV in the right antecubital space with an 20g angiocath, with aseptictechnique and good blood return; one attempt. Saline lock flushed with 10 mL saline. --13:30 04/06/21Evangelista Richards RN13:35 04/06/21. BP: 106/69. MAP: 81. HR: 78. RR: 16. O2 saturation: 97%. Temp: 97.6 F. --13: CanDiag, Tarun, ER Tech1 Charted on wrong patient. --13:37 04/06/21 SAIC, [email or web address], ER Blqn460:37 04/06/2021 Started bag #1 1000 mL IV Fluids NS; at 1000 mL/hr over 1 hour(s) via site #1 via IVpump. Allergies verified and confirmed 5 rights. IV patency established. IV site checked: no pain, redness,or swelling. I V flushed thoroughly pre- and post-medication administration. Information reviewed withpatient including reason for taking this medication. Verbalizes understanding. --13:37 04/06/21 JEREMIAH Hughes13:37 04/06/2021 Zofran (Ondansetron HCl) IVP 8 mg given over 2 minute(s) via site #1. Allergies verifiedand confirmed 5 rights. IV patency established. IV site checked: no pain, redness, or swelling. IV flushedthoroughly pre- and post-medication administration. IVP given by RN. Information reviewed with patientincluding reason for taking this medication. Verbalizes understanding. --13:37 04/06/21 Evangelista Richards RN13:38 04/06/2021 ofirmev * Drip IV 1000 mg 100 ml infused at 400 ml/hr over 15 minutes --13: Evangelista Richards RN14:09 04/06/21. BP: 91/49. MAP: 63. HR: 81. RR: 12. O2 saturation: 100%. Temp: 98.5 F. --14: Nahomy Stephens4:00 04/06/2021 Ofirmev Drip IV Discontinued: infused. Total amount infused: 100 mL. IV patencyestablished. IV site checked: no pain, redness, or swelling. IV flushed thoroughly. --15:22 04/06/21 JEREMIAH Hughes15:12 04/06/2021 IV Fluids NS via IV site #1 Discontinued: bag #1 infused. Total amount infused: 1000 mL.IV patency established. IV site checked: no pain, redness, or swelling. IV flushed thoroughly. --15: Evangelista Richards RN15:50 04/06/21. BP: 102/56. MAP: 71. HR: 78. RR: 20. O2 saturation: 100%. --15:51 04/06/21 BrentTarun Ortiz ER Demk606:01 04/06/2021 Started bag #2 1000 mL IV Fluids NS; at 1000 mL/hr over 1 hour(s) via site #1 via IVpump. Allergies verified and confirmed 5 rights. IV patency established. IV site checked: no pain, redness,or swelling. IV flushed thoroughly pre- and post- medication administration. Information reviewed withpatient including reason for taking this medication. Verbalizes understanding. --16:01 04/06/21 Evangelista Razo Clinical Report - Nurses [facility] Emergency Department [address] [place] [address] Phone #: ext- [phone] 04/06/2021 11:02 Patient: GRANT WALTER Sex: F : 2000 Age: 20y JEREMIAH Richards 16:01 04/06/2021 Morphine IVP 4 mg given over 3 minute(s) via site #1. Allergies verified and confirmed 5 rights. IV patency established. IV site checked: no pain, redness, or swelling. IV flushed thoroughly pre- and post-medication administration. IVP given by RN. Information reviewed with patient including reason for taking this medication and sedative warning. Verbalizes understanding. --16:01 04/06/21 Evangelista Richards RN 16:02 04/06/2021 Reglan (Metoclopramide HCl) IVP 10 mg given over 3 minute(s) via site #1. Allergies verified and confirmed 5 rights. IV patency established. IV site checked: no pain, redness, or swelling. IV flushed thoroughly pre- and post-medication administration. IVP given by RN. Information reviewed with patient including reason for taking this medication. Verbalizes understanding. --16:02 04/06/21 Evangelista Richards RN Patient ID band checked for patient name and birthdate: patient confirmed. COVID-19 specimen obtained by RN via nasopharyngeal swab. Labeled in the presence of the patient and sent to lab. --16:27 04/06/21 Evangelista Richards RN 16:30 04/06/2021 IV Fluids NS via IV site #1 Discontinued: STOPPED upon discharge. Total amount infused: 500 mL. IV patency established. IV site checked: no pain, redness, or swelling. IV flushed thoroughly. --16:35 04/06/21 Evangelista Richards RN 16:31 04/06/2021 Site #1 removed upon discharge. Catheter intact. Manual pressure and bandage applied. --16:36 04/06/21 Evangelista Richards RN.DISPOSITION / DISCHARGE 16:28 04/06/21. BP: 99/56. MAP: 70. HR: 69. RR: 12. O2 saturation: 96%. Temp: 98.3 F. --16:28 04/06/21 Sage Stephens [place] Coma Scale: 15- eyes open- spontaneous (4); best verbal response- oriented (5); best motor response- obeys commands (6). Condition at departure: improved and stable. Reviewed medication(s) side effects, precautions, dosing and course information. Prescription(s) sent electronically to pharmacy. Work note given. Patient verbalized understanding. Written instructions provided in Khmer. The patient was discharged by the physician college sports assistant. She was discharged home and accompanied by credit operations specialist. She left ambulatory and via private vehicle. Maintenance Planning Clerk driving. --16:35 04/06/21 Evangelista Richards RN 16:34 04/06/21. Pain level now: 05/21. --16:35 04/06/21 Evangelista Richards RN Departure time: 16:35 04/06/2021. --16:35 04/06/21 Evangelista Richards RN. 5 Clinical Report - Nurses [facility] Emergency Department [address] [place] [address] Phone #: ext- [phone] 04/06/2021 11:02 Patient: GRANT WALTER Sex: F : 2000 Age: 20yLocked/Released at 04/06/2021 16:36 by Evangelista Richards RN Name Value Range Interpretation Code Description Data Re rce(s) Supporting Document(s) ID Date Data Source [id number] 04/06/2021 11:14:00 AM EST [facility] 1 Clinical Report - Physicians/Mid Levels [facility] Emergency Department [address] [place] [address] Phone #: ext- [phone] 04/06/2021 11:02 Patient: GRANT WALTER Sex: F : 2000 Age: 20y Time Seen: 13:15 04/06/2021. Arrived- By private vehicle. 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 This started 2 days ago; ( pt states she began to have abdominal pain starting 2 days ago and yesterday she started with a headache and some dizziness, she reports she can not eat or drink anything due to the n/v) and is still present. It was gradual in onset and has been constant. It is described as "pain", sharp, stabbing and cramping and it is described as located in the right lower quadrant. At its maximum, severity described as moderate. When seen in the E.D., severity described as moderate. The patient has had nausea, loss of appetite and vomiting. No diarrhea. Similar symptoms previously. None. Recent medical care: Not recently seen/assessed.REVIEW OF SYSTEMSLast normal menstrual period- 1 1 / 2 weeks ago. No constipation, black stools, hematemesis, difficultywith urination or pain with urination. No urinary frequency, missed periods, abnormal bleeding, bloodystools or fever. No sore throat, blurred vision, chest pain, difficulty breathing or cough. No joint pain, skinrash, chills or back pain. The patient has had a headache but not had weight loss.PAST HISTORYAdditional Surgeries:Left ankle. Medications: Iron Oral (Tablet 325 (65 Fe) mg) 1 tablet, daily. Vitamin D3 Oral 4000 ut, daily. cloNIDine HCl Oral (Tablet 0.1 mg) 1 tablet, daily. Allergies: No Known Drug Allergy.SOCIAL HISTORYNever smoker. No alcohol use or drug use.PHYSICAL EXAMVital Signs: 04/06/2021 13:06 BP: 105/71. MAP: 82. HR: 108. RR: 18. O2 saturation: 98%. Temp: 101.2F. Pain level now: 9/10. Have been reviewed as abnormal. Tachycardic. Febrile. Oxygen saturationnormal.Appearance: Alert. Oriented X3. No acute distress. 2 Clinical Report - Physicians/Mid Levels [facility] Emergency Department [address] [place] [address] Phone #: ext- [phone] 04/06/2021 11:02 Patient: GRANT WALTER Sex: F : 2000 Age: 20y Eyes: Pupils equal, round and reactive to light. Eyes normal inspection. ENT: Ears normal. Nose normal. Pharynx normal. Neck: Normal inspection. CVS: Normal heart rate and rhythm. Heart sounds normal. Respiratory: No respiratory distress. Breath sounds normal. Abdomen: Soft. Mild tenderness in the right lower quadrant. Bowel sounds normal. No organomegaly. No mass. Back: Normal inspection. Skin: Skin warm and dry. Normal skin color. No rash. Normal skin turgor. Extremities: Extremities exhibit normal ROM. No lower extremity edema. Neuro: Oriented X 3.LABS, X-RAYS, AND EKGCT Abdomen - Pelvis: Small amount of free pelvic fluid is nonspecific. This may be physiologic orreactive. No acute GI or process. No specific etiology for pain is identified. Study type: upperabdomen; lower abdomen; pelvis. Abdomen - pelvic CT performed with IV contrast. The study wasinterpreted by the radiologist and contemporaneously by me. Interpretation time: 16:19 04/06/2021.Laboratory Tests: Laboratory tests have been ordered, with results reviewed and considered in themedical decision making process. Beta-HCG, Quant Serum: (RAMYA: 04/06/2021 13:54) ( MsgRcvd 04/06/2021 15:07) Final results Test Result Flag Units (Reference) HCG QUANT <0.5 mIU/mL Interpretation: Less than 5 mU/mL: Negative 6-10 mU/mL: Borderline (suggest repeat in 48 hours) >10: Positive Approx HCG range (mU/mL) Weeks post LMP 5.4-708 mU/mL 3-4 Weeks 217-84960 mU/mL 5-6 Weeks 4059-480913 mU/mL 7-8 Weeks 78906-677128 mU/mL 9-10 Weeks 40314-94223 mU/mL 12- 14 Weeks 83174-45374 mU/mL 15-16 Weeks 8240-60080 mU/mL 17-18 Weeks CBC w Diff: (RAMYA: 04/06/2021 13:54) ( MsgRcvd 04/06/2021 14:39) Final results Test Result Flag Units (Reference) CBC W/AUTOMATED DIFF COMPLETE BLOOD COUNT WBC 11.1 H 10/uL (4.2 - 11.0) RBC 4.31 10/uL (4.20 - 5.40) HEMOGLOBIN 11.4 L g/dL (12.0 - 16.0) HEMATOCRIT 35.0 L % (37.0 - 47.0) MCV 81.2 fL (81.0 - 101) MCH 26.5 L pg (27.0 - 34.0) MCHC 32.6 g/dL (31.0 - 36.0) RDW 15.0 H % (11.5 - 14.5) PLATELETS 234 10/uL (150 - 450) MPV 9.9 fL (7.4 - 10.4) NEUT 79.9 % (37.0 - 80.0) LYMPH 8.0 L % (25.0 - 40.0) MONO 10.9 H % (3.0 - 8.0) EOS 0.5 % (0.0 - 7.0) BASO 0.3 % (0.0 - 2.5) %IG 0.4 H % (0.0 - 0.0) %NRBC 0.0 % (0.0 - 0.0) 3 Clinical Report - Physicians/Mid Levels [facility] Emergency Department [address] [place] [address] Phone #: ext- [phone] 04/06/2021 11:02 Patient: GRANT WALTER Sex: F : 2000 Age: 20y #NEUT 8.85 H 10/uL (2.00 - 6.90) #LYMPH 0.88 10/uL (0.60 - 3.40) #MONO 1.21 H 10/uL (0.00 - 0.90) #EOS 0.05 10/uL (0.00 - 0.70) #BASO 0.03 10/uL (0.00 - 0.20) #IG 0.04 10/uL (0.00 - 0.10) #NRBC 0.00 10/uL (0.00 - 0.00) MANUAL DIFF SEE BELOW SEGS 85 H % (37 - 80) %LYMPH 11 L % (25 - 40) %MONO 4 % (3 - 8) RBC MORPH NOT INDICATEDCMP: (RAMYA: 04/06/2021 13:54) ( MsgRcvd 04/06/2021 14:34) Final results Test Result Flag Units (Reference) COMPREHENSIVE METABOLIC PANEL COMPREHENSIVE METABOLIC PANEL SODIUM 133 L mEq/L (134 - 153) POTASSIUM 3.6 mEq/L (3.6 - 5.0) CHLORIDE 101 mEq/L (98 - 107) CO2 22 MEQ/L (22 - 30) GLUCOSE 93 MG/DL (70 - 99) BUN 10 MG/DL (7 - 21) CREATININE 0.6 L MG/DL (0.7 - 1.5) BUN/CREAT 17 (8 - 27) TOTAL PROTEIN 6.5 G/DL (6.3 - 8.2) ALBUMIN 3.9 G/DL (3.9 - 5.0) GLOBULIN 2.6 GM/DL (2.4 - 3.2) A/G RATIO 1.5 (0.8 - 2.0) CALCIUM 9.0 MG/DL (8.4 - 10.2) TOTAL BILI <0.7 MG/DL (0.2 - 1.3) ALKALINE PHOS 69 U/L (38 - 126) SGOT/AST 19 U/L (5 - 40) SGPT/ALT 14 U/L (7 - 56) ANION GAP 10.0 mmol/L (8.0 - 16.0) AGE 20 yrs NON- AA GFR >60 mL/min AFR AMER GFR >60 mL/min Male GFR Interprentation 20-49 yrs >60 mL/min Sytawb03-44 yrs >56 mL/min Normal 60- 69 yrs >49 mL/min Normal 70-79yrs>42 mL/min Normal 80 and above >35 mL/min Normal Female GFRInterpretation 20-39 yrs >60 mL/min Normal 40-49 yrs >58 mL/minNormal 50-59 yrs >51 mL/min Normal 60-69 yrs >45 mL/min Newqxj36-47 yrs >39 mL/min Normal 80 and above >32 mL/min NormalBeta-HCG, Qual Urine: (RAMYA: 04/06/2021 15:30) ( MsgRcvd 04/06/2021 15:47) Final results Test Result Flag Units (Reference) HCG URINE QUAL NEGATIVE (NORMAL: NEGAT HCG URINE QL REENTER NEGATIVE (NORMAL: NEGAT { KIT LOT # [id number] ){ KIT EXP DATE06.11.22 ){ PROCEDURAL CONTROL VALID)Lactic Acid: (RAMYA: 04/06/2021 13:54) ( MsgRcvd 04/06/2021 14:04) Final results Test Result Flag Units (Reference) LACTIC ACID 0.7 MMOL/L (0.2 - 2.2) 4 Clinical Report - Physicians/Mid Levels [facility] Emergency Department [address] [place] [address] Phone #: [phone] 04/06/2021 11:02 Patient: GRANT WALTER Sex: F : 2000 Age: 20y Lipase: (RAMYA: 04/06/2021 13:54) ( MsgRcvd 04/06/2021 14:34) Final results Test Result Flag Units (Reference) LIPASE 15 U/L (13 - 60) UA REFLEX TO UA CULTURE: (RAMYA: 04/06/2021 15:30) ( MsgRcvd 04/06/2021 15:51) Final results Test Result Flag Units (Reference) UA REFLEX TO UA CULTURE URINALYSIS SOURCE R COLOR yellow (NORMAL: Yello CLARITY hazy (NORMAL: Clear SPEC GRAVITY 1.015 (1.001 - 1.030 pH 6.5 (5 - 9) GLUCOSE NORM (NORMAL: Negat BILIRUBIN NEG (NORMAL: Negat KETONE 15 A (NORMAL: Negat PROTEIN 30 (NORMAL: Negat NITRITE NEG (NORMAL: Negat BLOOD NEG (NORMAL: Negat LEUK EST NEG (NORMAL: Negat UROBILINOGEN NOR (less than 1.0 MICROSCOPIC See Below WBC 0 - 1 (NORMAL: NONE RBC None Seen (NORMAL: NONE EPITHELIAL MANY A (NORMAL: NONE BACTERIA 2+ MOD A (NORMAL: NONE MUCOUS 2+ A (NORMAL: NONE AMORPH SED NONE SEEN (NORMAL: NONE CASTS Not Indicated CRYSTALS Not Indicated YEAST None Seen.PROGRESS AND PROCEDURESCourse of Care: 16:Apr 06 2021. Evaluation after observation and results of tests back. (Discussedrisks, benefits, options and pt is agreeable with dx and tx plan.). Patient counseled in person regarding the patient's stable condition, test results, diagnosis and need for follow-up. Patient agrees with plan of care. 16:Apr 06 2021. Disposition: Discharged home in good and improved condition (16:Apr 06 2021).CLINICAL IMPRESSION Acute urinary tract infection with cystitis and hematuria. Coronavirus: COVID-19. COVID-19 presumed (confirmatory testing pending) with gastroenteritis. 5 Clinical Report - Physicians/Mid Levels [facility] Emergency Department [address] [place] [address] Phone #: ext- [phone] 04/06/2021 11:02 Patient: GRANT WALTER Sex: F : 2000 Age: 20yINSTRUCTIONS Do not work (until covid results complete). Drink plenty of fluids. Warnings: Further evaluation is necessary. It is very important to follow up with a healthcare provider. GENERAL WARNINGS: Return or contact your physician immediately if your condition worsens or changes unexpectedly, if not improving as expected, or if other problems arise. SPECIFICALLY, return if you develop the inability to keep fluids down, blood in vomitus, blood in diarrhea, fainting or lightheadedness; or if there is no improvement in the pain in the abdomen. Your Current Medications: Your current home medications have been reviewed. CONTINUE TAKING THE FOLLOWING MEDICATIONS: cloNIDine HCl Oral : Tablet 0.1 mg, 1 tablet daily. Iron Oral : Tablet 325 (65 Fe) mg, 1 tablet daily. Vitamin D3 Oral : 4000 ut daily. Prescription Medications: metoclopramide 10 mg tablet Take 1 tablet three times a day for 10 days -- Dispense 30 tablet. Refills: 0. Substitution permitted. [facility]04 - [id number] ; [place] [address]. . cefdinir 300 mg capsule Take 1 capsule twice a day for 7 days -- Dispense 14 capsule. Refills: 0. Substitution permitted. [facility] - [id number] ; [place] [address]. FaxNumber: . Follow-up: Follow up with your doctor as needed. Reason for referral: evaluation and treatment. Summary of care provided to patient. Understanding of the discharge instructions verbalized by patient.(Electronically signed by CHRIS Kim 04/06/2021 22:01) Name Value Range Interpretation Code Description Data [facility] rce(s) Supporting Document(s) ID Date Data Source [id number] 04/06/2021 11:14:00 AM [facility] GRANT Keita VisitID: [id number] Date: 10:57called pt to infom her that her Covid test was negative(Electronically signed by Evangelista Rcihards RN - 04/09/2021 10:57) Name Value Range Interpretation Code Description Data [facility] rce(s) Supporting Document(s) ID Date Data Source [id number] 04/07/2021 03:11:00 PM EST [facility] [address] [place] [address] PHONE: [phone] FAX: [phone] Name .................. : SABA BURNS Acct Number.................. : [id number] ROOM. ................. : VT-10 MR Number ................... : [id number] Stay type ............. : E/R Discharge Date......... ... : 04/06/21 Admit Date ......... : 04/06/21 Admit Phys .................... : FLORY Elder Date of ....... : 2000 Family Phys ................... : NO PCP Phone .................. : [phone] Age ................................ : 20 Film# .................. .:[id number] Sex ................................. : F Unsigned transcriptions are preliminary reports and do not represent a medical or legal document CT ABD & PELVIS W/ IV ONLY [id number] COMPLETE:04/06/21 16:48 WILDER [id number] Reason(s): Abdominal Pain CT ABDOMEN AND PELVIS WITH IV CONTRAST INDICATION: Abdominal pain COMPARISON: None IV CONTRAST: 75 cc Isovue-370 One or more of the following dose reduction techniques were utilized in effectively lowering the radiation dose for this examination: Automated Exposure Control, Adjustment of the mA and/or kV according to patient size, or Iterative reconstruction. FINDINGS: LUNG BASES: No pulmonary nodules or masses. No pleural effusions. LIVER/BILIARY: Normal. SPLEEN: Normal. PANCREAS: Normal. ADRENALS: Normal bilaterally. KIDNEYS/: Normal kidneys without hydronephrosis. Grossly normal bladder. No abnormal uterine or adnexal enlargement. BOWEL/GI: Small amount of free pelvic fluid. This may be physiologic. No free air. The appendix is not fully delineated but there is no indication of appendicitis. No diverticulitis or colitis. No abscess collection. NODES/RETROPERITONEUM: No adenopathy. No AAA. Page 1 of 2 [facility] [address] [place] [address] PHONE: [phone] FAX: [phone] Name .................. : SABA BURNS Acct Number.................. : [id number] ROOM. ................. : [facility] MR Number ................... : [id number] Stay type ............. : E/R Discharge Date......... ... : 04/06/21 Admit Date ......... : 04/06/21 Admit Phys .................... : FLORY Elder Date of ....... : 2000 Family Phys ................... : NO PCP Phone .................. : [phone] Age ................................ : 20 Film# .................. .:[id number] Sex ................................. : F Unsigned transcriptions are preliminary reports and do not represent a medical or legal document CT ABD & PELVIS W/ IV ONLY [id number] COMPLETE:04/06/21 16:48 WILDER [id number] Reason(s): Abdominal Pain SKELETAL: No fractures. Mild degenerative endplate irregularities in the lower thoracic spine. IMPRESSION: Small amount of free pelvic fluid is nonspecific. This may be physiologic or reactive. No acute GI or process. No specific etiology for pain is identified. Electronically Reviewed and Signed By Jomar Orosco MD , 04/07/21 15:11, SCRivera Transcribe Initials: AWA , Transcribe Date: 04/06/21 22:16, Dictation Date: Copy for: KELLY ZAPATA via fax Copy for: EMERGENCY DEPT via modem Copy for: 710 MED REC DISCHARGED Page 2 of 2 Name Value Range Interpretation Code Description Data Re rce(s) Supporting Document(s) ID Date Data Source [id number] 04/06/2021 04:20:00 PM EST [facility] Name Value Range Interpretation Code Description Data [facility] Supporting Document(s) SARS coronavirus [address] [facility] This lab was ordered by [facility] and reported by [facility]. ID Date Data Source [id number] 04/09/2021 07:34:00 AM EST [facility] Name Value Range Interpretation Code Description Data [facility] rce(s) Supporting Document(s) SARS-CoV-2, LUZ Not Detected Not Detected [facility] This nucleic acid amplification test was developed and its performancecharacteristics determined by [facility]. Nucleic acidamplification tests include RT-PCR and TMA. This test has not beenFDA cleared or approved. This test has been authorized by FDA underan Emergency Use Authorization (EUA). This test is only authorizedfor the duration of time the declaration that circumstances existjustifying the authorization of the emergency use of in vitrodiagnostic tests for detection of SARS-CoV-2 virus and/or diagnosisof COVID-19 infection under section 564(b)(1) of the Act, 21 U.S.C.360bbb-3(b) (1), unless the authorization is terminated or revokedsooner.When diagnostic testing is negative, the possibility of a falsenegative result should be considered in the context of a patient'srecent exposures and the presence of clinical signs and symptomsconsistent with COVID- 19. An individual without symptoms of COVID-19and who is not shedding SARS-CoV-2 virus would expect to have anegative (not detected) result in this assay. ID Date Data Source [id number] 04/09/2021 12:56:00 PM EST [facility] Name Value Range Interpretation Code Description Data Re rce(s) Supporting Document(s) CULTURE URINE [facility] _CULTURE URINE_$$[id number]$$[id number]$$549112$$428935$$162843$$176800$$197210$$266281$$052184$$ 192877$$344798$$866682$$111987$$279282$$735338$$911308$$370206$$209944$$757058$$ 123071$$998785$$405889$$925240$$069202$$426260$$724965$$682442 -- Continued on next page --Patient: SABA BURNS Order: [id number] Page 2Culture: CULTURE URINE Status: Final ====$$[id number]$$[id number] DATE/TIME: 04/09/2021 12:06Culture: CULTURE URINE Status: FinalUrine Culture,Comprehensive: [id number] urogenital flora50,000-100,000 colony forming units per mLP1 Test performed by: [facility] HospitalIA #: [id number] [address] [place] [address] [id number] [facility] [id number] Director : Frank Stafford MD NPI #:Nurse Office : 04/09/21.1256.XMT.SENT REF ID Date Data Source [id number] 04/06/2021 03:51:00 PM EST [facility] Name Value Range Interpretation Code Description Data Re rce(s) Supporting Document(s) UA REFLEX TO UA CULTURE [facility] URINALYSIS SOURCE R [facility] COLOR yellow NORMAL: Yellow [facility] CLARITY hazy NORMAL: Clear [facility] Specific gravity of Urine by Test strip 1.015 1.001 - 1.030 [facility] 6.5 5 - [facility] Gl[facility] [Mass/volume] in Urine by Test strip NORM NORMAL: Negat [facility] Bilirubin.total [Presence] in Urine by Test strip NEG NORMAL: Negative [facility] Ketones [Presence] in Urine by Test strip 15 NORMAL: Negative [facility] Protein [Mass/volume] in Urine by Test strip 30 NORMAL: Negat [facility] Nitrite [Presence] in Urine by Test strip NEG NORMAL: Negative [facility] BLOOD NEG NORMAL: Negative [facility] Leukocyte esterase [Presence] in Urine by Test strip NEG MAIKEL L: Negative [facility] Urobilinogen [Mass/volume] in Urine by Test strip NOR less marquis n 1.0 mg/dL [facility] MICROSCOPIC See Below [facility] ital WBC 0 - 1 NORMAL: NONE SEEN [facility] Erythrocytes [#/volume] in Urine by Test strip None Seen NORMAL: NON E SEEN [facility] EPITHELIAL MANY NORMAL: NONE SEEN A [facility] Bacteria [Presence] in Urine sediment by Light microscopy 2+ MOD NORMAL: NONE SEEN A [facility] Mucus [Presence] in Urine sediment by Light microscopy 2+ NOR MAL: NONE SEEN A [facility] Amorphous sediment [Presence] in Urine sediment by Light sivakumar roscopy NONE SEEN NORMAL: NONE SEEN [facility] Casts [#/area] in Urine sediment by Microscopy low power field N ot Indicated [facility] Crystals [type] in Urine sediment by Light microscopy Not Indicated [facility] YEAST None Seen [facility] ID Date Data Source [id number] 04/06/2021 03:46:00 PM EST [facility] Name Value Range Interpretation Code Description Data Re rce(s) Supporting Document(s) HCG URINE QUAL NEGATIVE NORMAL: NEGATIVE [facility] HCG URINE QL REENTER NEGATIVE NORMAL: NEGATIVE [facility] { KIT LOT # [id number] ){ KIT EXP DATE 06.11.22 ){ PROCEDURAL CONTROL VALID ) ID Date Data Source [id number] 04/06/2021 03:07:00 PM EST [facility] Name Value Range Interpretation Code Description Data Re rce(s) Supporting Document(s) Choriogonadotropin.intact [Units/volume] in Serum or Plasma <0.5 mIU/ mL [facility] Interpr etation: Less than 5 mU/mL: Negative 6-10 mU/mL: Borderline (suggest repeat in 48 hours) >10: Positive Approx HCG range (mU/mL) Weeks post LMP 5.4-708 mU/mL 3-4 Weeks 217-22984 mU/mL 5-6 Weeks 4059-606366 mU/mL 7-8 Weeks 87701-570940 mU/mL 9-10 Weeks 97065-27201 mU/mL 12-14 Weeks 79651-76654 mU/mL 15-16 Weeks 8240- 41819 mU/mL 17-18 Weeks ID Date Data Source [id number] 04/06/2021 02:38:00 PM EST [facility] Name Value Range Interpretation Code Description Data Re rce(s) Supporting Document(s) CBC W/AUTOMATED DIFF [facility] COMPLETE BLOOD COUNT Leukocytes [#/volume] in Blood by Automated count 11.1 10^3/uL 4.2 - 11.0 H [facility] Erythrocytes [#/volume] in Blood by Automated count 4.31 10^6/uL 4. 20 - 5.40 [facility] Hemoglobin [Mass/volume] in Blood 11.4 g/dL 12.0 - 16.0 L [facility] Hematocrit [Volume Fraction] of Blood by Automated count 35.0 % 3 7.0 - 47.0 L [facility] Erythrocyte mean corpuscular volume [Entitic volume] by Auto mated count 81.2 fL 81.0 - 101 [facility] Erythrocyte mean corpuscular hemoglobin [Entitic mass] by Automated count 26.5 pg 27.0 - 34.0 L [facility] Erythrocyte mean corpuscular hemoglobin concentration [Mass/volume] by Automated count 32.6 g/dL 31.0 - 36.0 [facility] Erythrocyte distribution width [Ratio] by Automated count 15.0 % 11.5 - 14.5 H [facility] Platelets [#/volume] in Blood by Automated count 234 10^3/uL 150 - 45 0 [facility] Platelet mean volume [Entitic volume] in Blood by Automated count 9.9 fL 7.4 - 10.4 [facility] Neutrophils/100 leukocytes in Blood by Automated count 79.9 % 37. 0 - 80.0 [facility] Lymphocytes/100 leukocytes in Blood by Manual count 8.0 % 25.0 - 40.0 L [facility] Monocytes/100 leukocytes in Blood by Automated count 10.9 % 3.0 - 8.0 H [facility] Eosinophils/100 leukocytes in Blood by Automated count 0.5 % 0.0 - 7.0 [facility] Basophils/100 leukocytes in Blood by Automated count 0.3 % 0.0 - 2.5 [facility] %IG 0.4 % 0.0 - 0.0 H [facility] al %NRBC 0.0 % 0.0 - 0.0 [facility] Neutrophils [#/volume] in Blood by Automated count 8.85 10^3/uL 2.00 - 6.90 H [facility] Lymphocytes [#/volume] in Blood by Automated count 0.88 10^3/uL 0.60 - 3.40 [facility] Monocytes [#/volume] in Blood by Automated count 1.21 10^3/uL 0.00 - 0.90 H [facility] Eosinophils [#/volume] in Blood by Automated count 0.05 10^3/uL 0.00 - 0.70 [facility] Basophils [#/volume] in Blood by Automated count 0.03 10^3/uL 0.00 - 0.20 [facility] #IG 0.04 10^3/uL 0.00 - 0.10 [facility] #NRBC 0.00 10^3/uL 0.00 - 0.00 [facility] MANUAL DIFF SEE BELOW [facility] ital Segmented neutrophils/100 leukocytes in Blood by Manual count 85 % 37 - 80 H [facility] %LYMPH 11 % 25 - 40 L [facility] al %MONO 4 % 3 - 8 [facility] RBC MORPH NOT INDICATED [facility] ID Date Data Source [id number] 04/06/2021 02:34:00 PM EST [facility] Name Value Range Interpretation Code Description Data Re rce(s) Supporting Document(s) COMPREHENSIVE METABOLIC PANEL [facility] COMPREHENSIVE METABOLIC PANEL Sodium [Moles/volume] in Serum or Plasma 133 mEq/L 134 - 153 L [facility] Potassium [Moles/volume] in Serum or Plasma 3.6 mEq/L 3.6 - 5.0 [facility] Chloride [Moles/volume] in Serum or Plasma 101 mEq/L 98 - 107 [facility] Carbon dioxide, total [Moles/volume] in Serum or Plasma 22 MEQ/L 22 - 30 [facility] Glucose [Mass/volume] in Serum or Plasma 93 MG/DL 70 - 99 [facility] BUN 10 MG/DL 7 - 21 [facility] Creatinine [Mass/volume] in Serum or Plasma 0.6 MG/DL 0.7 - 1.5 L [facility] BUN/CREAT 17 8 - 27 [facility] Protein [Mass/volume] in Serum or Plasma 6.5 G/DL 6.3 - 8.2 [facility] Albumin [Mass/volume] in Serum or Plasma 3.9 G/DL 3.9 - 5.0 [facility] Globulin [Mass/volume] in Serum by calculation 2.6 GM/DL 2.4 - 3.2 [facility] A/G RATIO 1.5 0.8 - 2.0 [facility] Calcium [Mass/volume] in Serum or Plasma 9.0 MG/DL 8.4 - 10.2 [facility] Bilirubin.total [Mass/volume] in Serum or Plasma <0.7 MG/DL 0.2 - 1.3 [facility] Alkaline phosphatase [Enzymatic activity/volume] in Serum or Plasma 69 U/L 38 - 126 [facility] Aspartate aminotransferase [Enzymatic activity/volume] in Serum or Plasma 19 U/L 5 - 40 [facility] Alanine aminotransferase [Enzymatic activity/volume] in Seru m or Plasma 14 U/L 7 - 56 [facility] Anion gap 3 in Serum or Plasma 10.0 mmol/L 8.0 - 16.0 [facility] AGE 20 yrs [facility] NON-AA GFR >60 mL/min [facility] ital AFR AMER GFR >60 mL/min [facility] Male GFR In terprentation 20-49 yrs >60 mL/min Normal 50-59 yrs >56 mL/min Normal 60-69 yrs >49 mL/min Normal 70-79yrs >42 mL/min Normal 80 and above >35 mL/min Normal Female GFR Interpretation 20-39 yrs >60 mL/min Normal 40-49 yrs >58 mL/min Normal 50-59 yrs >51 mL/min Normal 60-69 yrs >45 mL/min Normal 70-79 yrs >39 mL/min Normal 80 and above >32 mL/min Normal ID Date Data Source [id number] 04/06/2021 02:34:00 PM EST [facility] Name Value Range Interpretation Code Description Data Re rce(s) Supporting Document(s) Lipase [Enzymatic activity/volume] in Serum or Plasma 15 U/L 13 - 60 [facility] ID Date Data Source [id number] 04/06/2021 02:04:00 PM EST [facility] Name Value Range Interpretation Code Description Data Re rce(s) Supporting Document(s) Lactate [Moles/volume] in Serum or Plasma 0.7 MMOL/L 0.2 - 2.2 [facility] ID Date Data Source [id number] 03/23/2021 09:45:00 AM EST [facility] Name Value Range Interpretation Code Description Data Re rce(s) Supporting Document(s) SARS-CoV-2 (COVID 19) NEGATIVE - SARS-CoV-2 (COVID19) [facility] This lab was ordered by [facility] a nd reported by [facility]. ID Date Data Source [id number] 03/23/2021 09:45:00 AM EST [facility] ([facility]) Name Value Range Interpretation Code Description Data Re rce(s) Supporting Document(s) Respiratory Panel Laboratory test result [facility] ([facility]) This respiratory PCR panel detects Influ dilan A H1, H3 and 2009 H1 viruses, [...] be reliably differentiated. ORGANISM 1: HUMAN RHINOVIRUS/ENTEROVIRUS ID Date Data Source [id number] 03/21/2021 08:40:27 AM [facility] Name Value Range Interpretation Code Description Data Re rce(s) Supporting Document(s) Progress Note [facility] TBXHSx2jRyNLQfOm91/DWMxnNSOgd0UvPJdbVNz0DAgbTGLyO4KeRMA9rR4xEDM8VWlLMeReXxOfOHLu [facility] [file] AgICAgICAgICAgICAgICAgICAgICAgICAgICAgICAg ICAgICAgICAgICAgICAgICAgICAgICAgICAgICAgICAgICAgICAgICAgICAgICAgICAgICAgICAgICAg HGNxLI0FDNFvOIZoHPXoZMWdLCUsHNVlDBMiGCYeOXVxPUGbFCNxZPXjOEPfHNRnNUYzUPKyZYMpWNLs ICAgICAgICAgICAgICAgICAgICAgICAgICAgICAgIC ZyAOHiRPYlXAHuQGNbCO1NYINgZLQfROLfVOMzZUHfDECgZBKmTUMaNBFpSJTgAOAuPLWtLAYyWGJeHD UlWBXsOMPaIVMgWJJdLJMvYFMzIBKsGBQaOCQhOBNgPAJwWCAmRBDvKBAzSUAeTXJoHZApOILfLU3PTN AgICAgICAgICAgICAgICAgICAgICAgICAgICAgICAg ICAgICAgICAgICAgICAgICAgICAgICAgICAgICAgICAgICAgICAgICAgICAgICAgICAgICAgICAgICAg GHRyYETnET2TOYQiLYOhMDJtYCSmOPUsPYTzRQQgMDOpAVVhDGYpQGSjMCBoRTIiLYDnRPQgRGKdTZNr ICAgICAgICAgICAgICAgICAgICAgICAgICAgICAgIC YnRLGbZFQhGIWrDCZdUQEnMJ5EKRXyADOqLLTnBPSvDPXcKGTdZOUrUTSzICMoBFHgAUMgONEaWQAeKI AgICAgICAgICAgICAgICAgICAgICAgICAgICAgICAgICAgICAgICAgICAgICAgICAgICAgICAgICAgIA 0KICAgICAgICAgICAgICAgICAgICAgICAgICAgICAg ICAgICAgICAgICAgICAgICAgICAgICAgICAgICAgICAgICAgICAgICAgICAgICAgICAgICAgICAgICAg LUQmHEMhMNEwQW5TMEUyQYPeSIQoRKPaAICvOSHmYSOcJCBnXMNqQLByHXQtCFVdAGFzTRYgXKYeZJKs ICAgICAgICAgICAgICAgICAgICAgICAgICAgICAgIC GxGVFfDZEvOHTjSMMgDCZlZMUfVD9DBUCeMRCzJXFkZCVbXDHcYEOjGUHqOYFjAZRzKPCzDFQoQYKgCT AgICAgICAgICAgICAgICAgICAgICAgICAgICAgICAgICAgICAgICAgICAgICAgICAgICAgICAgICAgIC KpCO7LKSXoIXFtYFVeATToJKDiZLNiSOKiGMXfDNJe ICAgICAgICAgICAgICAgICAgICAgICAgICAgICAgICAgICAgICAgICAgICAgICAgICAgICAgICAgICAg KECkFQDrTXPrEHRgBF4JPG83nWGvn8W1LTZnIX0irqk/Iy2DCBhjrgTrhWGbBD0DYkXwNT7adm8ZQuYr NG5gaf9ECZeBHkJbZ2B1rLPnZNVtATQCQvZgQ90pAN xsPn35LExjFSFsCsIuFUx9Dl9EMlKsX6nxATPbEaZ5RLMnFsC0TTBeVkAwGKkdLZ0Sy1OdeTMcGHo+Pg 5ITH2pk4QqWYnhIRZtQS0ywb6QYDbWYaJjY0DdjxO7LCH9SEExRw3BIORdCKBhpVLvYFEsLAQRKtKcO3 PgvM53WZBFUa0+HHrywpPoRxvMCyG8YAZjq8XoKPs3 KI9FRWAiLVk2ySFhVGAkH4Bul7PeZo72IBJgYxmvT1PpeMTfXFCAIN08SCqoYN7bbGSeHDNZHDKkhOEq KE9iNS5uLFIoMFUcKsBvRNWNMK2PENYiBTIsmPGeACYqEEMJOK1XIFolUHA4SOFfeeXqmQAtQHfbML0K YXJlbnQgMjQgMCBSDQo+Jr6OBZ9ec3SsQWhgAwCxTZ 0dmp1HEPnCNfGkZ6O0lQQvF3N3GKkpQm0EZASwUYGnTmDnTHYMRMbzTH0REN3vcrJ8WA4LhJNmLYNvTG JayEEyRFh8R84eaHPyWRniYN1HECZ+Nicola+Jv7EESZzMETzECEbFvMbEYLCFiJzZ4VkI3NQp2NqR2MxKI 30sIoltsQuIOxjEY4AFA6eRCEfTLDTIY6AhPLtcA9r lxBfKRTgAZZLKgHlL19gfAHgXZFdHJYvNQQeVr5AOOBiB9KyqsKoyDvzgiEtXAKeILIJJR0CJYvfkiFn mOGnsSqvSM71qZjjDT6KXv4OZlLlVS1tfr6YrATyQc6RWGRqZk7WVIYrRDSjDYRxHQB2VWKaKxUmMFjx OVJyWAZjEDG6PTJpKDFpWA5YBjNhTOCtGiAtSYezHJ OzEBQdzc7YNCKxLGUnYGZ4ZOXqIPJiJXXiLTrzPGBtOEOwGLM4ATOhQZDwCO5CBoCcGEFrRCD3TtCoDX YqSJMfbz8KDAWkJOWeZoalPXTtYYBtLGAiTOstMLCiLSW0SuN2NOUhRYDjNB8RYrGtJBFmVDR3SAHpYL OfYJEcgr3ADDJgPRQwDsyjBLIqBYFuITTxDLkoGIZn VWD2ECb6TKClKSSyUZ8GGjVoLPRsHDmvNesbWLAmOLYyhb2OIGAnVFOuJVVdIbIpUALkRXFjPIigCDTm HKX8GKI7TCQsJEIeGW0GOhIzJHXfKKv7BcwjWIInPSQgxu4KAQMxRULhJRJ7CcPyMHGnMEZcKRmrIAYw VNSiJhrkHCChVQPqPR7SEbRmLTDxJeE5BTHgJTJhEB Jqlg8AJJJoLRHoHFq2OATkOHHlNMTnWYsyCAYdQKCtRSl0TMMeAQCaQF5LDjEcKSVkIwZ8TsDbZSQxNU Shlr4ZGQRsVFSjDbNxZZHsNWKlXZCaLGaoONKqYRKqDaa8JSCiCFPuBM3HHsOaCTWpLwD1ESPdLGOaSY Ilft2MJLTrHXJlXJV4UWBrWLUvGVRaAEioKUCdIZO9 IcI8UGPaNUAsJU0VYfZqCZAxSdBmRBTmNPWvGHCvwv9NzUDpwIxpuv8PFIsKYm9LtZyaLYW4IRxnIh3e qUYaAvDdKCDJPu0RykUaMTMxXIYAEIdkVEEwWQr5IDEcA2EgNxQ8SRCzUhe9ZUaxRYOnHAFbPBdwHaYh FfY8GLQaWyMdZkVoGBo6TBNkJGB0TLO2WnE7NGIaRO M2ZWM+MD7iRTn+Eq9Jh8OhgyO0nkPkFChjPYUyAG7QZPLDS4DBAw== ID Date Data Source [id number] 03/19/2021 01:49:00 PM EST [facility] ([facility]) Name Value Range Interpretation Code Description Data Re rce(s) Supporting Document(s) Thyroperoxidase Ab [Units/volume] in Serum or Plasma Laboratory balaji t result [facility] ([facility] ) Thyrotropin [Units/volume] in Serum or Plasma by Detec tion limit <= 0.05 mIU/L 1.660 uIU/ML 0.463-3.98 [facility] ([facility] ) Thyroxine (T4) free [Mass/volume] in Serum or Plasma 1.08 ng/dL 0.78- 1.33 [facility] ([facility]) ID Date Data Source [id number] 03/19/2021 01:49:00 PM EST [facility] ([facility]) Name Value Range Interpretation Code Description Data Re rce(s) Supporting Document(s) Hepatitis C virus Ab [Units/volume] in Serum by Immunoassay 0.1 INDEX [facility] ([facility]) Negative Not infected with HCV, unless recent infection is suspected or other evidence exists to indicate HCV infection. Hepatitis B virus surface Ag [Presence] in Serum or Pl asma by Immunoassay Laboratory test result [facility] ([facility]) Reagin Ab [Presence] in Serum by RPR Laboratory test result [facility] ([facility]) HIV 1+2 Ab [Presence] in Serum Laboratory test result [facility] ([facility]) <content>This assay was performed utiliz ing a chemiluminescent</content>
<content>principle technique for the simultaneous qualitative</content>
<content>detection of HIV-1 p24 antigen & antibodies to HIV-1</content>
<content>(including group O) & HIV-2 using the Siemens Centaur XP</content>
<content>system.</content>
<content>The estimated 95% confidence interval for sensitivity of</content>
<content>this antigen/antibody combination assay for HIV-1&2</content>
<content>antibodies is 99.7-100% and HIV p24 antigen is 89.4-99.9%.</content>
<content>The estimated 95% confidence interval for specificity of</content>
<content>this antigen/antibody combination in low risk populations is</content>
<content>99.6-99.8%.</content>
<content></content> ID Date Data Source [id number] 03/19/2021 01:49:00 PM EST [facility] ([facility]) Name Value Range Interpretation Code Description Data Re rce(s) Supporting Document(s) Thyrotropin [Units/volume] in Serum or Plasma 1.660 uIU/ML 0.463-3.98 [facility] ([facility]) Thyroxine (T4) free [Mass/volume] in Serum or Plasma 1.08 ng/dL 0.78- 1.33 [facility] ([facility]) Thyroperoxidase Ab [Units/volume] in Serum or Plasma Laboratory balaji t result [facility] ([facility]) ID Date Data Source [id number] 03/12/2021 10:29:44 AM EDT [facility] MR EXTREMITY LOWER JOINT WITHOUT CONTRAS T [id number] RESULTInterpreted by:Morgan Bradford MDEXAM: LEFT ANKLE MRI.INDICATION: Ongoing lateral ankle pain. History of Kobi repair May 2018.PRIOR EXAM: MRI April 03, 2018.TECHNIQUE: 3 plane localizer followed by axial (parallel to metatarsals) T1, PD FSE fat suppressed. Coronal PD FSE without and with fat suppression, T2 gradient echo imaging. Sagittal FSE T2,PD FSE , STIR images. Finally, angled axial images perpendicular to the peroneal tendons performed using T1 and PD FSE fat suppressed imaging.FINDINGS:tendons: Normal peroneal tendons. Normal extensor tendons. Normal posterior tibialis, flexor digitorum longus, flexor hallucis longus tendons. Normal Achilles. ligaments: Normal. Superficial fibers the deltoid and deep fibers deltoid ligament are intact.osseous/joints: Normal marrow signal characteristics of the distal fibula and tibia talus calcaneus and bones the midfoot.ankle mortice: Small ankle mortise joint effusion. No osteochondral lesions.plantar fascia: Normalsinus tarsi:No fibrotic or edematous changes.tarsal tunnel: Normal without soft tissue mass. No evidence for atrophy or denervation of the tarsal tunnel muscles including abductor hallucis, quadratus plantae, flexor digitorum and abductor digiti minimi. Lisfranc ligament: NormalIMPRESSION: There is a thinning of the reconstructed/tyonek anterior talofibular ligament however intact fibers remain attached to the talus and fibula. There is significant thinning of the anterior inferior tibiofibular ligament and the posterior inferior tibiofibular ligament. The calcaneofibular ligament is difficult to visualize however I suspect it is intact but markedly thinned. This document has been electronically signed by Morgan Bradford MD on 03/12/2021 10:27 AM Name Value Range Interpretation Code Description Data Re rce(s) Supporting Document(s) ID Date Data Source [id number] 02/28/2021 03:41:00 PM EDT [facility] ([facility]) Name Value Range Interpretation Code Description Data Re rce(s) Supporting Document(s) White Blood Count 7.0 10 4.0-10.0 [facility]) Hemoglobin 11.0 g/dL 12.0-15.5 Below low normal [facility] ([facility]) Red Blood Count 4.26 10 4.00-5.40 [facility] ([facility]) Hematocrit 35.1 % 36.0-47.0 Below low normal [facility] ([facility]) Mean Corpuscular Volume 82.4 fl 80.0-96.0 [facility] ([facility]) Mean Corpuscular HGB Conc 31.3 g/dL 32.0-36.5 Below low normal [facility] ([facility]) Mean Corpuscular Hemoglobin 25.8 pg 27.0-33.0 Below low normal [facility] ([facility]) Platelet Count, Automated 330 10 150-450 [facility] ([facility]) Red Cell Distribution Width 13.2 % 11.5-14.5 [facility] ([facility]) Neutrophils % 61.5 % 36.0-66.0 [facility] ([facility]) Lymph % 29.0 % 24.0-44.0 [facility] [place] % 7.8 % 2.0-8.0 [facility]) Baso % 0.7 % 0.0-1.0 [facility]) Eos % 0.7 % 0.0-3.0 [facility]) Immature Granulocyte % 0.3 % 0-3.0 [facility] ([facility]) Nucleated Red Blood Cell % 0.0 % 0-0 [facility] ([facility]) Lymph # 2.0 10 1.5-5.0 [facility]) Neutrophils # 4.3 10 1.5-8.5 [facility]) [place] # 0.6 10 0.0-0.8 [facility]) Baso # 0.1 10 0.0-0.2 [facility] Eos # 0.1 10 0.0-0.5 [facility] ID Date Data Source [id number] 02/28/2021 03:41:00 PM EDT [facility] ([facility]) Name Value Range Interpretation Code Description Data Re rce(s) Supporting Document(s) Ebv Viral Capsid Ag IgM Laboratory test result 0.0-35.9 [facility] ([facility]) <content>Negative <36.0</content>
<content>Equivocal 36.0 - 43.9</content>
<content>Positive >43.9</content>
<content></content> Ebv AB To Nuclear Antigen Laboratory test result 0.0-17.9 Above hig h normal [facility] ([facility]) <content>Negative <18.0</content>
<content>Equivocal 18.0 - 21.9</content>
<content>Positive >21.9</content>
<content></content> Ebv Viral Capsid Ag IgG 141.0 U/mL 0.0-17.9 Above high normal [facility] ([facility]) <content>Negative <18.0</content>
<content>Equivocal 18.0 - 21.9</content>
<content>Positive >21.9</content>
<content></content> Ebv Interpretation Laboratory test result [facility] ([facility]) . EBV Interpretation Chart [place]: Antibody Present [...] with EBV never develop antibodies to EBNA. ID Date Data Source [id number] 02/28/2021 03:41:00 PM EDT [facility] ([facility]) Name Value Range Interpretation Code Description Data Re rce(s) Supporting Document(s) Calcidiol [Mass/volume] in Serum or Plasma 15.9 ng/mL 30.0- 100.0 Below low normal [facility] ([facility]) Chana Badillo virus nuclear Ab [Presence] in Serum Laboratory test res ult [facility] ([facility]) Reflex test for EBV COMPREHENSIVE will be sent to [employer] [employer] [facility], [address] [place] [address]. Kevin Hannon [id number]. Cytomegalovirus IgM Ab [Presence] in Serum Laboratory test result 0.0 -29.9 [facility] ([facility]) <content>Negative <30.0</content >
<content>Equivocal 30.0 - 34.9</content>
<content>Positive >34.9</content>
<content>A positive result is generally indicative of acute</content>
<content>infection, reactivation or persistent IgM production.</content>
<content>Performed at: RN - [facility]</content>
<content>[address] [place] [address] [id number]</content>
<content>Nurse Office: Nathalie Marie MD, Phone: [phone]</content>
<content></content> Cytomegalovirus IgG Ab [Units/volume] in Serum or Plas ma by Immunoassay 4.20 U/mL 0.00-0.59 Above high normal [facility]) <content>Negative <0.60</conten t>
<content>Equivocal 0.60 - 0.69</content>
<content>Positive >0.69</content>
<content></content> ID Date Data Source [id number] 02/28/2021 03:41:00 PM EDT [facility] ([facility]) Name Value Range Interpretation Code Description Data Re rce(s) Supporting Document(s) Thyroid Stimulating Hormone 5.350 uIU/ML 0.463-3.98 Above high normal [facility] ([facility]) Free T4 0.93 ng/dL 0.78-1.33 [facility] ([facility]) ID Date Data Source [id number] 02/28/2021 03:41:00 PM EDT [facility] ([facility]) Name Value Range Interpretation Code Description Data Re rce(s) Supporting Document(s) Glucose, Fasting 80 mg/dL 70-100 [facility] ([facility]) Creatinine For GFR 0.65 mg/dL 0.55-1.30 [facility] ([facility]) Blood Urea Nitrogen 9 mg/dL 7-18 [facility] ([facility]) Sodium Level 140 meq/L 136-145 [facility] ([facility]) Potassium Serum 4.2 meq/L 3.5-5.1 [facility] ([facility]) Anion Gap 5 meq/L 8-16 Below low normal [facility] ([facility]) Chloride Level 106 meq/L 98-107 [facility] ([facility]) Carbon Dioxide Level 29 meq/L 21-32 [facility] ([facility]) Calcium Level 9.0 mg/dL 8.5-10.1 [facility] ([facility]) Ast/Sgot 14 U/L 7-37 [facility] ([facility]) Alt/SGPT 18 U/L 12-78 [facility] ([facility]) Alkaline Phosphatase 61 U/L 45-117 [facility] ([facility]) Bilirubin,Total 0.3 mg/dL 0.2-1.0 [facility] ([facility]) Total Protein 6.7 GM/DL 6.4-8.2 [facility] ([facility]) Albumin/Globulin Ratio 1.0 1.2-2.2 Below low normal [facility] ([facility]) Albumin 3.4 GM/DL 3.2-5.2 [facility] ([facility]) ID Date Data Source [id number] 02/28/2021 03:41:00 PM EDT [facility] ([facility]) Name Value Range Interpretation Code Description Data Re rce(s) Supporting Document(s) Iron (Fe) 35 ug/dL 50-170 Below low normal [facility] ([facility]) Total Iron Binding Capacity 453 ug/dL 250-450 Above high normal [facility] ([facility]) Percent Saturation 7.7 % 13.2-45.0 Below low [facility] ID Date Data Source [id number] 02/14/2021 11:15:00 AM EDT [facility] ([facility]) Name Value Range Interpretation Code Description Data Re rce(s) Supporting Document(s) Influenza B Amplification Laboratory test result [facility] ([facility]) Negative results do not preclude influen za or RSV virus infection and should not be used as the sole basis for treatment or other patient management decisions. Influenza A Amplification Laboratory test result [facility] ([facility]) Negative results do not preclude influen za or RSV virus infection and should not be used as the sole basis for treatment or other patient management decisions. RSV Amplification Laboratory test result [facility] ([facility]) Negative results do not preclude influen za or RSV virus infection and should not be used as the sole basis for treatment or other patient management decisions. Laboratory test finding (navigational concept) Laboratory test result [facility] ([facility]) A false negative result may occur if a s pecimen is improperly collected, transported or handled. False [...] pathogens. DISCLAIMER: Testing was performed using the [employer] SARS-CoV-2 test. This test was developed and its performance characteristics determined by [employer]. This test has not been FDA cleared [...] the authorization is terminated or revoked sooner. ID Date Data Source [id number] 02/14/2021 11:15:00 AM EDT [facility] Name Value Range Interpretation Code Description Data Re rce(s) Supporting Document(s) SARS coronavirus 2 RNA [Presence] in Res piratory specimen by LUZ with probe detection NEGATIVE [facility] This lab was ordered by [facility] a nd reported by [facility]. ID Date Data Source [id number] 02/14/2021 09:57:00 AM EDT [facility] Name Value Range Interpretation Code Description Data Re rce(s) Supporting Document(s) SARS coronavirus 2 RNA [Presence] in Res piratory specimen by LUZ with probe detection NEGATIVE [facility] This lab was ordered by [facility] a nd reported by [facility]. ID Date Data Source [id number] 01/16/2021 03:49:00 PM EDT [facility] ([facility]) Name Value Range Interpretation Code Description Data Re rce(s) Supporting Document(s) Appearance, Urine Laboratory test result Above high normal [facility] ([facility]) Color, Urine Laboratory test result [facility] NT ([facility]) PH,Urine 5.0 units 5.0-9.0 [facility] Specific [place] Urine Auto 1.030 1.002-1.035 [facility] ([facility]) Protein, Urine Auto Laboratory test result Above high norm al [facility] ([facility]) Glucose, Urine (Ua) Auto Laboratory test result [facility] ([facility]) Ketone, Urine Auto Laboratory test result Above high maikel l [facility] ([facility]) Urobilinogen, Urine Auto 2.0 mg/dL 0.0-2.0 Above high normal [facility] ([facility]) Bilirubin, Urine Auto Laboratory test result [facility] ([facility]) Nitrite, Urine Auto Laboratory test result [facility] ([facility]) Leukocyte Esterase, Urine Auto Laboratory test result [facility] ([facility]) Blood, Urine Blood Laboratory test result Above high maikel l [facility] ([facility]) WBC, Urine Auto 0 /HPF 0-3 [facility] ([facility]) RBC, Urine Auto 24 /HPF 0-3 Above high normal [facility] ([facility]) Bacteria, Urine Auto Laboratory test result [facility] ([facility]) Squamous Epithelial Cell Ur AU 0 /HPF 0-6 [facility] ([facility]) Mucus, Urine Laboratory test result [facility] NT ([facility]) Hyaline Cast, Urine Auto 0 /LPF 0-1 [facility] T ([facility]) Amorphous Sediment Laboratory test result Above high maikel l [facility] ([facility]) ID Date Data Source [id number] 01/16/2021 03:49:00 PM EDT [facility] ([facility]) Name Value Range Interpretation Code Description Data Re rce(s) Supporting Document(s) Bacteria identified in Urine by Culture Laboratory test result [facility] ([facility]) FULL REPORT IN LAB NOTES (eCW and [facility] ). NO GROWTH ID Date Data Source [id number] 01/09/2021 02:39:00 PM EDT [facility] Name Value Range Interpretation Code Description Data Re rce(s) Supporting Document(s) Appearance, Urine Laboratory test result [facility] ([facility]) Color, Urine Laboratory test result [facility] NT ([facility]) PH,Urine 5.0 units 5.0-9.0 [facility] Specific [place] Urine Auto 1.027 1.002-1.035 [facility] ([facility]) Protein, Urine Auto Laboratory test result [facility] ([facility]) Glucose, Urine (Ua) Auto Laboratory test result [facility] ([facility]) Ketone, Urine Auto Laboratory test result [facility] ([facility]) Urobilinogen, Urine Auto 0.2 mg/dL 0.0-2.0 [facility] T ([facility]) Bilirubin, Urine Auto Laboratory test result [facility] ([facility]) Nitrite, Urine Auto Laboratory test result [facility] ([facility]) Leukocyte Esterase, Urine Auto Laboratory test result [facility] ([facility]) Blood, Urine Blood Laboratory test result [facility] ([facility]) WBC, Urine Auto 1 /HPF 0-3 [facility] ([facility]) RBC, Urine Auto 0 /HPF 0-3 [facility] ([facility]) Bacteria, Urine Auto Laboratory test result [facility] ([facility]) Squamous Epithelial Cell Ur AU 3 /HPF 0-6 [facility] ([facility]) Hyaline Cast, Urine Auto 0 /LPF 0-1 [facility] T ([facility]) ID Date Data Source [id number] 01/09/2021 02:39:00 PM EDT [facility] ([facility]) Name Value Range Interpretation Code Description Data Re rce(s) Supporting Document(s) Bacteria identified in Urine by Culture Laboratory test result [facility] ([facility]) FULL REPORT IN LAB NOTES (eCW and [facility] ). SPECIMEN APPEARS CONTAMINATED ID Date Data Source [id number] 01/09/2021 02:39:00 PM EDT [facility] ([facility]) Name Value Range Interpretation Code Description Data Re rce(s) Supporting Document(s) Glucose, Fasting 75 mg/dL 70-100 [facility] ([facility]) Blood Urea Nitrogen 10 mg/dL 7-18 [facility] ([facility]) Creatinine For GFR 0.65 mg/dL 0.55-1.30 [facility] ([facility]) Sodium Level 138 meq/L 136-145 [facility] ([facility]) Potassium Serum 4.2 meq/L 3.5-5.1 [facility] ([facility]) Chloride Level 107 meq/L 98-107 [facility] ([facility]) Carbon Dioxide Level 28 meq/L 21-32 [facility] ([facility]) Anion Gap 3 meq/L 8-16 Below low normal [facility] Calcium Level 9.0 mg/dL 8.5-10.1 [facility] ([facility]) Ast/Sgot 13 U/L 7-37 [facility] Alt/SGPT 21 U/L 12-78 [facility] ([facility]) Alkaline Phosphatase 62 U/L 45-117 [facility] ([facility]) Bilirubin,Total 0.2 mg/dL 0.2-1.0 [facility] ([facility]) Total Protein 7.0 GM/DL 6.4-8.2 [facility] ([facility]) Albumin 3.5 GM/DL 3.2-5.2 [facility] ([facility]) Albumin/Globulin Ratio 1.0 1.2-2.2 Below low normal [facility] ([facility]) ID Date Data Source [id number] 01/09/2021 02:39:00 PM EDT [facility] ([facility]) Name Value Range Interpretation Code Description Data Re rce(s) Supporting Document(s) White Blood Count 7.7 10 4.0-10.0 [facility] ([facility]) Hemoglobin 11.1 g/dL 12.0-15.5 Below low normal [facility] ([facility]) Red Blood Count 4.17 10 4.00-5.40 [facility] ([facility]) Mean Corpuscular Volume 82.7 fl 80.0-96.0 [facility] ([facility]) Hematocrit 34.5 % 36.0-47.0 Below low normal [facility] ([facility]) Mean Corpuscular HGB Conc 32.2 g/dL 32.0-36.5 [facility] NT ([facility]) Mean Corpuscular Hemoglobin 26.6 pg 27.0-33.0 Below low normal [facility] ([facility]) Red Cell Distribution Width 13.7 % 11.5-14.5 [place] [facility] ([facility]) Platelet Count, Automated 321 10 150-450 [facility] NT ([facility]) Lymph % 30.4 % 24.0-44.0 [facility]) Neutrophils % 60.9 % 36.0-66.0 [facility] ([facility]) [place] % 6.6 % 2.0-8.0 [facility]) Eos % 1.0 % 0.0-3.0 [facility]) Baso % 0.8 % 0.0-1.0 [facility]) Immature Granulocyte % 0.3 % 0-3.0 [facility] ([facility]) Neutrophils # 4.7 10 1.5-8.5 [facility] ([facility]) Nucleated Red Blood Cell % 0.0 % 0-0 MED [facility]NT ([facility]) Lymph # 2.3 10 1.5-5.0 [facility]) [place] # 0.5 10 0.0-0.8 [facility] Eos # 0.1 10 0.0-0.5 [facility] Baso # 0.1 10 0.0-0.2 [facility]) ID Date Data Source [id number] 12/26/2020 12:00:00 AM EDT [facility] Name Value Range Interpretation Code Description Data Re rce(s) Supporting Document(s) SARS coronavirus 2 Ag NEGATIVE [facility] This lab was ordered by [facility] and reported by [facility]. ID Date Data Source [id number] 11/07/2020 04:41:47 PM EDT [facility] Name Value Range Interpretation Code Description Data Re rce(s) Supporting Document(s) Progress Note [facility] XZLYIj0qXkGLAkJk74/CXUncTJOpa5CnNOotWIr9HBmwTDEyB0FvQEO3rX3rSQO1BOaPXpKaZiLbEsM4 lbm [file] ICAgICAgICAgICAgICAgICAgICAgICAgICAgICAgICAgICAgICAgICAgICAgICAgICANCiAgICAgICAg ICAgICAgICAgICAgICAgICAgICAgICAgICAgICAgIC AgICAgICAgICAgICAgICAgICAgICAgICAgICAgICAgICAgICAgICAgICAgICAgICAgICAgICAgICAgIC ANCiAgICAgICAgICAgICAgICAgICAgICAgICAgICAgICAgICAgICAgICAgICAgICAgICAgICAgICAgIC AgICAgICAgICAgICAgICAgICAgICAgICAgICAgICAg ICAgICAgICAgICANCiAgICAgICAgICAgICAgICAgICAgICAgICAgICAgICAgICAgICAgICAgICAgICAg ICAgICAgICAgICAgICAgICAgICAgICAgICAgICAgICAgICAgICAgICAgICAgICAgICAgICANCiAgICAg ICAgICAgICAgICAgICAgICAgICAgICAgICAgICAgIC AgICAgICAgICAgICAgICAgICAgICAgICAgICAgICAgICAgICAgICAgICAgICAgICAgICAgICAgICAgIC AgICANCiAgICAgICAgICAgICAgICAgICAgICAgICAgICAgICAgICAgICAgICAgICAgICAgICAgICAgIC AgICAgICAgICAgICAgICAgICAgICAgICAgICAgICAg ICAgICAgICAgICAgICANCiAgICAgICAgICAgICAgICAgICAgICAgICAgICAgICAgICAgICAgICAgICAg ICAgICAgICAgICAgICAgICAgICAgICAgICAgICAgICAgICAgICAgICAgICAgICAgICAgICAgICANCiAg ICAgICAgICAgICAgICAgICAgICAgICAgICAgICAgIC AgICAgICAgICAgICAgICAgICAgICAgICAgICAgICAgICAgICAgICAgICAgICAgICAgICAgICAgICAgIC AgICAgICANCiAgICAgICAgICAgICAgICAgICAgICAgICAgICAgICAgICAgICAgICAgICAgICAgICAgIC AgICAgICAgICAgICAgICAgICAgICAgICAgICAgICAg ICAgICAgICAgICAgICAgICANCiAgICAgICAgICAgICAgICAgICAgICAgICAgICAgICAgICAgICAgICAg ICAgICAgICAgICAgICAgICAgICAgICAgICAgICAgICAgICAgICAgICAgICAgICAgICAgICAgICAgICAN Cjw/cMNgF6zflTUunlR4M7dbGw9YEn6ZQQ3th2PvFL PnFGshwiEiBqcWWsJaDKTvDqxWKqn8DTeeUH8PvBIfZ7NvL4OxCBndHP3LUVQjSJZnfOVpVRSxHZYwNu R0JGErMZptAE4JbQSeEYcrJLUnADOxKvCgJDEeOZ9UYRHaL536xbMtBy3PVa4BVcFeSP0mku7DWzOhUH HjGcdZDgc4OZdaRV2ErVGkwXYsRZEsEEWRYqQqX6tb f2EqAlDgMUKVSBgcTL9Pv4NiaIYfOFx+Ui4OZU3dd6HeWUdvAPKpNF7mmd6TWVeMWxFyC3EulXbfULGk r4rcPAXmIF7siTZvWWO4OORfnfggkLTKPQQbuLFahWbuwDmsJZDeKEFpSd9pCI9mIJXpDSWgAlHnOBET RO5VLPQlIVUwbTRtWKLeUDKFOB0KLBriETP6VBGofw OyjADbJAalZP2HPTMnqmGbJxJuECXYMWl+Os3XMT7qe4PbPKdsDvHqIN3cxs7UARjSOsCiS0N2bHReU4 D9ORfrCb6XMZRlHZGxVgBxTVWHLNsgPR0RCQ6kcgK8VG6FsOFdJYZaQXDecBTcKTj9I54ksALdYOhtUS 0KICA+Nicola+Rb7OGVYeLBJcPKRpMnPeGBVYEcJjZ5Om I7LSw7HgE1TwEO11yUmqdqDbKIpbPD7PIX5aREZuJNHTHP9FlDDuzY4cskOoOMHlFYWEXuNmZ30fnKKd WIEdKPUtSLGlPs1FUHNtH7CfbsHwwWoeqcLhRVQoSIAIKO8WDVzkpsDyrKXqrFruDP23pAdzIT7XTc7Q SgYgIE4ufm9IsMJjCh7VWAVbWf2YTIIxCOBwAHVeKV T1YQAvZcAbCHcyKFDdQCGoPPL9ICXdHGBmIA1DKvXsOGJiCsWpUBKnBOTkEGWotd7MRMShKHMtKox8HR OvGFMpNKYiCJbnIELsEXDpZKV0VMPuPBJyDO6MXmQwETEePPN6YqhnPRKcZMHutt0JCYAqWLEjXcm6Zx CzKYTkUZBkXPsfJYMyZXR7GNlnGNZaVRApWA3BBqYs HAWsJXX8QlGkJBHvRLIwtr4JAHMpWIAfGJszHONaTIXpJAXmSVrrXBHlOSN9INQvWFLfNDIqFF5FWmWk OYEbWJUkQAPtQUVqLNXusy6DTHZoVZCrUuO7UKGoHLChJALgLGubIEBcAIQ9UiduKARdFWOsUP3MTkZx KFDdHWe4ZxYbCFYaLVKxrl3OULBkMYJhPDl4FPRnQX VxXKUzZZfkFBCbGDN5OlE3FXAwEHBaBG1ZBpSvUQGcZSs6RtMcETLuDVCrtl1YCBSjSNZpVWZ0WQAyDR FjFIOpFNziBMMsJLG6WGYqBEQeLGHlKH8YZvUoKOGjXgA9RpWbPHNfFGHeeo7ERHKwHHUuICe5RrChCM YwWJCyGZvxJSXoYTKaOKHdEABuUALsXJ4JKoNzRPOb XoO1YBegWCNxFLOxrl0AIRRcHWJbJpd9EmSiAXIbLJZaSKpsUUWoHAFwRKWwDNXyAVGeBF6COhYsBONp ImQoXLRaVBEtGEFgqp3XrMAiaSjrhn8EXYpLJy7AiKqsNZQ1WJwtKa3lsTNtIxKsIPIIDu9ZndHqXYCt OGIJRFszBGPaUTM1RwdlTLA0VQNkOZloDmLxTEGuJx H9LIJzHuwfKpv9RjN9BTsiW5WuIILgOZNbQNLmExA1ZGQdYuJ5CqQaVHEpKyj+JE6yZMs+Lm4Sd2Niqz H4ciHzBVypVeN2EC9FDKUGD3VEBl== ID Date Data Source [id number] 11/07/2020 04:03:55 PM EDT [facility] XR ANKLE 2 VIEWS [id number] RESULTInterp reted by:Cayden Mohan ankle 2 views and left foot 3 viewsINDICATION: PainCOMPARISON: 03/03/2018FINDINGS:Left ankle:The ankle mortise is symmetric and intact. Joint spaces preserved. No acute fracture or dislocation.Left foot:Normal bone mineralization. Joint spaces are preserved. No acute fracture is seen. No dislocation.IMPRESSION:Normal left ankle and left foot radiographs.This document has been electronically signed by Fam Aguilar MD on 11/07/2020 4:01 PM Name Value Range Interpretation Code Description Data Re e(s) Supporting Document(s) ID Date Data Source [id number] 11/07/2020 04:03:55 PM EDT [facility] XR FOOT 3 OR MORE VIEWS [id number] RESUL TInterpreted by:Cayden Mohan ankle 2 views and left foot 3 viewsINDICATION: PainCOMPARISON: 03/03/2018FINDINGS:Left ankle:The ankle mortise is symmetric and intact. Joint spaces preserved. No acute fracture or dislocation.Left foot:Normal bone mineralization. Joint spaces are preserved. No acute fracture is seen. No dislocation.IMPRESSION:Normal left ankle and left foot radiographs.This document has been electronically signed by Fam Aguilar MD on 11/07/2020 4:01 PM Name Value Range Interpretation Code Description Data Re rce(s) Supporting Document(s) ID Date Data Source [id number] 10/30/2020 11:14:00 AM EDT [facility] ([facility]) Name Value Range Interpretation Code Description Data Re rce(s) Supporting Document(s) Respiratory Panel Laboratory test result [facility] ([facility]) This respiratory PCR panel detects Influ dilan A H1, H3 and 2009 H1 viruses, [...] be reliably differentiated. ORGANISM 1: HUMAN RHINOVIRUS/ENTEROVIRUS ID Date Data Source [id number] 10/30/2020 11:14:00 AM EDT [facility] Name Value Range Interpretation Code Description Data [facility] Supporting Document(s) SARS-CoV-2 (COVID 19) NEGATIVE - SARS-CoV-2 (COVID19) [facility] This lab was ordered by [facility] a nd reported by [facility]. ID Date Data Source [id number] 08/04/2020 03:48:[address] [facility]) Name Value Range Interpretation Code Description Data Re rce(s) Supporting Document(s) Ebv Viral Capsid Ag IgG 211.0 U/mL 0.0-17.9 Above high normal [facility] ([facility]) <content>Negative <18.0</content>
<content>Equivocal 18.0 - 21.9</content>
<content>Positive >21.9</content>
<content></content> Ebv Viral Capsid Ag IgM Laboratory test result 0.0-35.9 [facility] ([facility]) <content>Negative <36.0</content>
<content>Equivocal 36.0 - 43.9</content>
<content>Positive >43.9</content>
<content></content> Ebv Interpretation Laboratory test result [facility] ([facility]) . EBV Interpretation Chart [place]: Antibody Present [...] with EBV never develop antibodies to EBNA. Ebv AB To Nuclear Antigen Laboratory test result 0.0-17.9 Above hig h normal [facility] ([facility]) <content>Negative <18.0</content>
<content>Equivocal 18.0 - 21.9</content>
<content>Positive >21.9</content>
<content></content> ID Date Data Source [id number] 08/04/2020 03:48:00 PM EDT [facility] ([facility]) Name Value Range Interpretation Code Description Data Re rce(s) Supporting Document(s) Cytomegalovirus IgG Ab [Units/volume] in Serum or Plas ma by Immunoassay 4.90 U/mL 0.00-0.59 Above high normal [facility] <content>Negative <0.60</conten t>
<content>Equivocal 0.60 - 0.69</content>
<content>Positive >0.69</content>
<content></content> Cytomegalovirus IgM Ab [Presence] in Serum Laboratory test result 0.0 -29.9 [facility] ([facility]) <content>Negative <30.0</content >
<content>Equivocal 30.0 - 34.9</content>
<content>Positive >34.9</content>
<content>A positive result is generally indicative of acute</content>
<content>infection, reactivation or persistent IgM production.</content>
<content>Performed at: [facility]</content>
<content>[address], [place] [id number]</content>
<content>Nurse Office: Nathalie Marie MD, Phone: [phone]</content>
<content></content> Chana Badillo virus nuclear Ab [Presence] in Serum Laboratory test res ult [facility] ([facility]) Reflex test for EBV COMPREHENSIVE will be sent to [facility], [address] [facility]. [place], Marcela.Juju. [id number]. ID Date Data Source [id number] 06/25/2020 06:55:00 PM EST [facility] ([facility]) Name Value Range Interpretation Code Description Data Re rce(s) Supporting Document(s) Choriogonadotropin.beta subunit [Moles/volume] in Seru m or Plasma Laboratory test result [facility] ([facility] ) <content>QUANTITATIVE RESULT QU ALITATIVE INTERPRETATION</content>
<content> </content>
<content><5.0 IU/L NEGATIVE</content>
<content>5.0 - 25.0 IU/L INDETERMINATE</content>
<content>>25.0 IU/L POSITIVE</content>
<content></content> ID Date Data Source [id number] 06/25/2020 06:53:00 PM EST [facility] ([facility]) Name Value Range Interpretation Code Description Data Re rce(s) Supporting Document(s) Laboratory test finding (navigational concept) 39.0 % 38.0-51.0 [facility] ([facility]) Laboratory test finding (navigational concept) 97 mg/dL 70-105 [facility] ([facility]) Laboratory test finding (navigational concept) 139 meq/L 136-145 [facility] ([facility]) Laboratory test finding (navigational concept) 4.1 meq/L 3.5-5.1 [facility] ([facility]) Laboratory test finding (navigational concept) 5.0 mg/dL 4.5-5.3 [facility] ([facility]) Laboratory test finding (navigational concept) 27.0 MM/L 23.0-27.0 [facility] ([facility]) Laboratory test finding (navigational concept) 104 meq/L 98-109 [facility] ([facility]) Laboratory test finding (navigational concept) 0.6 mg/dL 0.6-1.3 [facility] ([facility]) Laboratory test finding (navigational concept) 12 mg/dL 8-26 [facility] ([facility]) ID Date Data Source [id number] 06/25/2020 06:49:00 PM EST [facility] ([facility]) Name Value Range Interpretation Code Description Data Re rce(s) Supporting Document(s) Red Blood Count 4.75 10 4.00-5.40 [facility] ([facility]) White Blood Count 8.6 10 4.0-10.0 [facility] ([facility]) Hemoglobin 12.9 g/dL 12.0-15.5 [facility] Hematocrit 40.1 % 36.0-47.0 [facility] Mean Corpuscular Hemoglobin 27.2 pg 27.0-33.0 [place] [facility] ([facility]) Mean Corpuscular Volume 84.4 fl 80.0-96.0 [facility] ([facility]) Red Cell Distribution Width 12.7 % 11.5-14.5 [place] [facility] ([facility]) Mean Corpuscular HGB Conc 32.2 g/dL 32.0-36.5 [facility] ([facility]) Platelet Count, Automated 313 10 150-450 [facility] ([facility]) Nucleated Red Blood Cell % 0.0 % 0-0 [facility] ([facility]) ID Date Data Source [id number] 06/25/2020 06:49:00 PM EST [facility] ([facility]) Name Value Range Interpretation Code Description Data Re rce(s) Supporting Document(s) Glucose, Fasting 91 mg/dL 70-100 [facility] ([facility]) Blood Urea Nitrogen 12 mg/dL 7-18 [facility] ([facility]) Creatinine For GFR 0.64 mg/dL 0.55-1.30 [facility] ([facility]) Sodium Level 139 meq/L 136-145 [facility] ([facility]) Potassium Serum 4.2 meq/L 3.5-5.1 [facility] ([facility]) Chloride Level 106 meq/L 98-107 [facility] ([facility]) Carbon Dioxide Level 27 meq/L 21-32 [facility]) Anion Gap 6 meq/L 8-16 Below low normal [facility] ([facility]) Calcium Level 9.5 mg/dL 8.5-10.1 [facility] ([facility]) ID Date Data Source [id number] 06/20/2020 03:38:00 PM EST [facility] Name Value Range Interpretation Code Description Data Re rce(s) Supporting Document(s) SARS coronavirus [address] [facility] This lab was ordered by [facility] and reported by [facility]. ID Date Data Source [id number] 06/20/2020 03:38:00 PM EST [facility] ([facility]) Name Value Range Interpretation Code Description Data Re rce(s) Supporting Document(s) Coronavirus 2019 Nasopharygeal Laboratory test result [facility] ([facility]) This nucleic acid amplification test was developed and its performance characteristics determined by [employer]. Nucleic acid amplification tests include RT- PCR [...] detected) result in this assay. Performed at: [facility] [address] [facility], [place], [place] [id number] Nurse Office: Lashell Whaley PhD, Phone: [phone] Not Detected ID Date Data Source [id number] 06/17/2020 12:00:00 AM EST [facility] Name Value Range Interpretation Code Description Data Re rce(s) Supporting Document(s) SARS coronavirus 2 RNA [Presence] in Res piratory specimen by LUZ with probe detection NEGATIVE [facility] This lab was ordered by Jacky Andrews and reported by [facility]. ID Date Data Source [id number] 06/17/2020 12:00:00 AM EST [facility] Name Value Range Interpretation Code Description Data Re rce(s) Supporting Document(s) Carestart Rapid COVID Antigen Test Negative [facility] This lab was reported by Jacky melgoza. ID Date Data Source [id number] 06/06/2020 09:18:00 AM EST [facility] ([facility]) Name Value Range Interpretation Code Description Data Re rce(s) Supporting Document(s) Red Blood Count 4.39 10 4.00-5.40 [facility] ([facility]) White Blood Count 4.5 10 4.0-10.0 [facility] ([facility]) Hematocrit 37.3 % 36.0-47.0 [facility]) Hemoglobin 11.9 g/dL 12.0-15.5 Below low normal [facility] ([facility]) Mean Corpuscular Volume 85.0 fl 80.0-96.0 [facility] ([facility]) Mean Corpuscular Hemoglobin 27.1 pg 27.0-33.0 [place] [facility] ([facility]) Mean Corpuscular HGB Conc 31.9 g/dL 32.0-36.5 Below low normal [facility] ([facility]) Platelet Count, Automated 320 10 150-450 [facility] ([facility]) Red Cell Distribution Width 13.7 % 11.5-14.5 [place] [facility] ([facility]) Neutrophils % 60.0 % 36.0-66.0 [facility] ([facility] [place] % 6.0 % 0.0-5.0 Above high normal [facility] ([facility] Lymph % 31.3 % 24.0-44.0 [facility] Eos % 1.8 % 0.0-3.0 [facility] Baso % 0.7 % 0.0-1.0 [facility] Immature Granulocyte % 0.2 % 0-3.0 [facility] ([facility]) Neutrophils # 2.7 10 1.5-8.5 [facility]) Nucleated Red Blood Cell % 0.0 % 0-0 [facility] ([facility]) Lymph # 1.4 10 1.5-5.0 Below low normal [facility] ([facility]) [place] # 0.3 10 0.0-0.8 [facility] Eos # 0.1 10 0.0-0.5 [facility] Baso # 0.0 10 0.0-0.2 [facility] ID Date Data Source [id number] 06/06/2020 09:18:00 AM EST [facility] ([facility]) Name Value Range Interpretation Code Description Data Re rce(s) Supporting Document(s) Thyroglobulin Quantitative 45.7 ng/mL 1.5-38.5 Above high normal [facility] ([facility]) . According to the National Academy [...] 0.1 ng/mL . Thyroglobulin measured by [facility] [place] Immunometric Assay Performed at: - [facility] [id number] Nurse Office: Louis Batista MD, Phone: [phone] Performed at: - [facility] [id number] Nurse Office: Nathalie Marie MD, Phone: [phone] Thryoglobulin Antibodies ([place]) Laboratory test result 0.0-0.9 [facility] ([facility]) Thyroglobulin Antibody measured by [facility] ID Date Data Source [id number] 06/06/2020 09:18:00 AM EST [facility] ([facility]) Name Value Range Interpretation Code Description Data Re rce(s) Supporting Document(s) Thyrotropin receptor Ab [Units/volume] in Serum Laboratory t est result 0.00-1.75 [facility] ([facility]) ID Date Data Source [id number] 06/06/2020 09:18:00 AM EST [facility] ([facility]) Name Value Range Interpretation Code Description Data Re rce(s) Supporting Document(s) Calcitriol [Mass/volume] in Serum or Plasma 49.0 pg/mL 19.9-79.3 [facility] ([facility]) ID Date Data Source [id number] 06/06/2020 09:17:00 AM EST [facility] ([facility]) Name Value Range Interpretation Code Description Data Re rce(s) Supporting Document(s) Thyrotropin [Units/volume] in Serum or Plasma 2.350 uIU/ML 0.463-3.98 [facility] ([facility]) Thyroxine (T4) free [Mass/volume] in Serum or Plasma 0.97 ng/dL 0.78- 1.33 [facility] ([facility]) Cobalamin (Vitamin B12) [Mass/volume] in Serum or Plasma 513 pg/mL 2 47-911 [facility] ([facility]) VITAMIN B12 NORMAL RANGE NORMAL 247 - 911 PG/ML INDETERMINATE 211 - 246 PG/ML DEFICIENT LESS THAN 211 PG/ML Folate [Mass/volume] in Serum or Plasma 11.8 ng/mL [facility] ([facility]) FOLATE NORMAL RANGE NORMAL GREATER THAN 5.4 NG/ML INDETERMINATE 3.4-5.4 NG/ML DEFICIENT LESS THAN 3.4 NG/ML ID Date Data Source [id number] 06/06/2020 09:17:00 AM EST [facility] ([facility]) Name Value Range Interpretation Code Description Data Re rce(s) Supporting Document(s) Iron (Fe) 29 ug/dL 50-170 Below low normal [facility] ([facility]) Percent Saturation 7.0 % 13.2-45.0 Below low normal [facility] ([facility]) Total Iron Binding Capacity 412 ug/dL 250-450 ME [facility] ([facility]) ID Date Data Source [id number] 06/06/2020 09:17:00 AM EST [facility] ([facility]) Name Value Range Interpretation Code Description Data Re rce(s) Supporting Document(s) Glucose, Fasting 78 mg/dL 70-100 [facility] ([facility]) Blood Urea Nitrogen 8 mg/dL 7-18 [facility] ([facility]) Sodium Level 140 meq/L 136-145 [facility] ([facility]) Creatinine For GFR 0.63 mg/dL 0.55-1.30 [facility] ([facility]) Potassium Serum 4.4 meq/L 3.5-5.1 [facility] ([facility]) Carbon Dioxide Level 31 meq/L 21-32 [facility] Chloride Level 106 meq/L 98-107 [facility] ([facility]) Calcium Level 9.4 mg/dL 8.5-10.1 [facility] ([facility]) Ast/Sgot 63 U/L 7-37 Above high normal [facility] ([facility]) Anion Gap 3 meq/L 8-16 Below low normal [facility] ([facility]) Alkaline Phosphatase 64 U/L 45-117 [facility] ( [facility] Bilirubin,Total 0.2 mg/dL 0.2-1.0 [facility] ([facility]) Alt/SGPT 96 U/L 12-78 Above high normal [facility] ([facility]) Albumin 3.7 GM/DL 3.2-5.2 [facility]) Total Protein 7.0 GM/DL 6.4-8.2 [facility] ([facility]) Albumin/Globulin Ratio 1.1 1.2-2.2 Below low normal [facility] ([facility]) ID Date Data Source [id number] 06/06/2020 09:17:00 AM EST [facility] ([facility]) Name Value Range Interpretation Code Description Data Re rce(s) Supporting Document(s) Collagen Epinephrine 92 s 74-162 [facility] ([facility]) Results may be affected by platelet coun ts less than 150,000/mL or hematocrits less than 35%. If COL/EPI is NORMAL, COL/ADP is not performed. Result Interpretation: COL/EPI COL/ADP NORMAL NORMAL NORMAL ASA ABNORMAL NORMAL vWD ABNORMAL NORMAL GLANZMANN'S ABNORMAL ABNORMAL THROMBASTHENIA POSSIBLE DRUG ABNORMAL ABNORMAL EFFECT ID Date Data Source [id number] 06/06/2020 09:17:00 AM EST [facility] ([facility]) Name Value Range Interpretation Code Description Data Re rce(s) Supporting Document(s) Inr 0.99 [facility] ([facility]) THERAPUTIC HUMAN INR VALUES INDICATIONS NORMAL RANGES PROPHYLAXIS/TREATMENT OF: VENOUS THROMBOSIS 2.0-3.0 PULMONARY EMBOLISM 2.0-3.0 PREVENTION OF SYSTEMIC EMBOLISM FROM: TISSUE HEART VALVES 2.0-3.0 ACUTE MYOCARDIAL INFARCTION 2.0-3.0 VALVULAR HEART DISEASE 2.0-3.0 ATRIAL FIBRILLATION 2.0-3.0 MECHANICAL VALVES(HIGH RISK) 2.5-3.5 RECURRENT MYOCARDIAL INFARCTION 2.5-3.5 Prothrombin Time 13.3 s 12.5-14.3 [facility] ([facility]) Partial Thromboplastin Time 32.7 s 24.2-38.5 [facility] ([facility]) ID Date Data Source [id number] 06/06/2020 12:00:00 AM EST [facility] Dyana Cardenas MD Patient Name: MATTY [id number] [facility] Date of : 2000[address] Date of Exam: 06/06/2020KISHOR Andrews [id number]#: Fax: [phone] EXAM: ABDOMEN AP (KUB) X-RAYCLINICAL [...] Description Data Re rce(s) Supporting Document(s) Procedure Social History Code Duration Value Status Description Data Source(s ) Smoking 03/14/2021 12:00:00 AM EDT Never Smoked Cigarettes com pleted Never Smoked Cigarettes [facility] ([facility]) Vital Signs ID Date Data Source UNK Name Value Range Interpretation Code Description Data Source(s) Oxygen saturation in Arterial blood by Pulse oximetry 98 % 98 % [facility] ([facility]) Systolic blood pressure 118 mm[Hg] 118 mm[Hg] M EDENT ([facility]) Diastolic blood pressure 64 mm[Hg] 64 mm[Hg] [facility] ([facility]) Heart rate 99 /min 99 /min [facility] ([facility]) Body height 68 [in_i] 68 [in_i] [facility] ([facility]) 5'8" Body weight 216.00 [lb_av] 216.00 [lb_av] [facility] T ([facility]) Body mass index (BMI) [Ratio] 32.8 kg/m2 32.8 k g/m2 [facility] ([facility]) Heart rate 85 /min 85 /min [facility] ([facility]) Diastolic blood pressure 84 mm[Hg] 84 mm[Hg] [facility] ([facility]) Body temperature 97.3 [degF] 97.3 [degF] [facility] ([facility]) Temporal Respiratory rate 20 /min 20 /min [facility] ( [facility]) Oxygen saturation in Arterial blood by Pulse oximetry 99 % 99 % [facility] ([facility]) Body weight 212.00 [lb_av] 212.00 [lb_av] [facility] T ([facility]) Body weight 96.163 kg 96.163 kg [facility] ([facility]) Systolic blood pressure 122 mm[Hg] 122 mm[Hg] [facility] Body height 68 [in_i] 68 [in_i] [facility] ([facility] 5'8" Systolic blood pressure 116 mm[Hg] 116 mm[Hg] [facility] ([facility] ) Body mass index (BMI) [Ratio] 33.0 kg/m2 33.0 k g/m2 [facility] ([facility] ) Oxygen saturation in Arterial blood by Pulse oximetry 98 % 98 % [facility] ([facility] ) Heart rate 71 /min 71 /min [facility] ([facility]) Body weight 217.00 [lb_av] 217.00 [lb_av] [facility] T ([facility]) Diastolic blood pressure 62 mm[Hg] 62 mm[Hg] [facility] ([facility]) Body weight 97.978 kg 97.978 kg [facility] ([facility]) Systolic blood pressure 110 mm[Hg] 110 mm[Hg] [facility] Body weight 216.00 [lb_av] 216.00 [lb_av] [facility] T ([facility]) Diastolic blood pressure 70 mm[Hg] 70 mm[Hg] [facility] ([facility]) Body weight 216.50 [lb_av] 216.50 [lb_av] [facility] T ([facility]) Body weight 98.204 kg 98.204 kg [facility] ([facility]) Body weight 205.25 [lb_av] 205.25 [lb_av] [facility] T ([facility]) Body weight 93.101 kg 93.101 kg [facility] ([facility]) Body temperature 98.1 [degF] 98.1 [degF] [facility] ([facility]) Oxygen saturation in Arterial blood by Pulse oximetry 99 % 99 % [facility] ([facility]) Heart rate 77 /min 77 /min [facility] ([facility]) Body weight 94.235 kg 94.235 kg [facility] ([facility]) Systolic blood pressure 110 mm[Hg] 110 mm[Hg] M [facility] ([facility]) Diastolic blood pressure 82 mm[Hg] 82 mm[Hg] [facility] ([facility]) Body temperature 97.3 [degF] 97.3 [degF] [facility] ([facility]) Body weight 207.75 [lb_av] 207.75 [lb_av] [facility] T ([facility]) Heart rate 87 /min 87 /min [facility] ([facility]) Respiratory rate 16 /min 16 /min [facility] ( [facility]) Oxygen saturation in Arterial blood by Pulse oximetry 97 % 97 % [facility] ([facility]) Body weight 95.710 kg 95.710 kg [facility] ([facility]) Body weight 211.00 [lb_av] 211.00 [lb_av] [facility] T ([facility]) Oxygen saturation in Arterial blood by Pulse oximetry 98 % 98 % [facility] ([facility]) Body temperature 97.7 [degF] 97.7 [degF] [facility] ([facility]) Body weight 203.12 [lb_av] 203.12 [lb_av] [facility] T ([facility]) Body weight 92.138 kg 92.138 kg [facility] ([facility]) Heart rate 73 /min 73 /min [facility] Respiratory rate 18 /min 18 /min [facility] ( [facility]) Body weight 199.62 [lb_av] 199.62 [lb_av] [facility] T ([facility]) Body weight 90.550 kg 90.550 kg [facility] ([facility]) Systolic blood pressure 112 mm[Hg] 112 mm[Hg] M ED[facility] ([facility]) Diastolic blood pressure 70 mm[Hg] 70 mm[Hg] [facility] ([facility]) Body weight 202.25 [lb_av] 202.25 [lb_av] [facility] T ([facility]) Body weight 91.741 kg 91.741 kg [facility] ([facility]) Body height 68 [in_i] 68 [in_i] [facility] ([facility]) 5'8" Body mass index (BMI) [Ratio] 30.7 kg/m2 30.7 k g/m2 [facility] ([facility]) Body mass index (BMI) [Percentile] 94 % 9 4 % [facility] ([facility]) Body height [Percentile] 93 % 93 % [facility] ([facility]) Body weight 208.00 [lb_av] 208.00 [lb_av] [facility] T ([facility]) Body weight 94.349 kg 94.349 kg [facility] ([facility]) Body weight 94.235 kg 94.235 kg [facility] ([facility]) Body weight 207.75 [lb_av] 207.75 [lb_av] [facility] T ([facility])
[2021-04-11 16:40] VITALS: BP 134/87
[2021-04-11] MEDS ORDERED: ONDANSETRON 4 MG TAB PO ONE (18:15)
[2021-04-11] MEDS ORDERED: FERR325T3 PO (18:34)
[2021-04-11] MEDS ORDERED: CLONI1TA PO (18:34)
[2021-04-11] MEDS ORDERED: VITATAB74 PO (18:34)
[2021-04-11] MEDS ORDERED: MIRA1POW3 PO (18:34)
[2021-04-11] MEDS: MAGNESIUM CITRATE 300 ML BTL PO SCH (20:35)
[2021-04-11 21:00] VITALS: BP 126/63
[2021-04-12] VITALS: BP 124/70
[2021-04-12] MEDS ORDERED: KCL 20MEQ IN D5/0.45NS 1000ML 1,000 ML IV SCH (00:30)
[2021-04-12] MEDS ORDERED: ONDANSETRON 4 MG TAB PO PRN (00:30)
[2021-04-12 05:00] VITALS: BP 128/72
[2021-04-12 08:30] VITALS: BP 123/73
[2021-04-12] MEDS: MAGNESIUM CITRATE 300 ML BTL PO SCH (08:30)
--- NOTE | 2021-04-12 09:33 | REP ---
INDICATION: constipation - no stool x 2 weeks COMPARISON: None. TECHNIQUE: Supine views of the abdomen and pelvis. FINDINGS: Bowel gas pattern is nonspecific and without obstruction or perforation. No evidence for fecal stasis. No organomegaly. No abnormal calcifications. Skeletal structures intact. IMPRESSION: Normal abdominal radiograph. <Electronically signed by Morgan Blunt > 04/12/21 [id number]
[2021-04-12] MEDS ORDERED: GLYCERIN ADULT SUPP PR PRN (11:00)
[2021-04-12] MEDS ORDERED: LEVS0.123 PO (11:11)
[2021-04-12] MEDS ORDERED: MIRA1POW3 PO (11:11)
--- NOTE | 2021-05-03 09:36 | DSES ---
DISCHARGE SUMMARY DATE OF ADMISSION: 04/11/2021 DATE OF DISCHARGE: 04/12/2021 FINAL DIAGNOSIS: Constipation, abdominal pain. BRIEF HISTORY: The patient is a 20-year-old female with longstanding history of constipation, who has been having some abdominal pain for several weeks. She has been in MiraLax regularly but she has not had a bowel movement in two weeks. She has previously been admitted for bowel clean out. She was recently seen at [facility] because of abdominal pain. She did have a fever then. Abdominal CT scan was negative. She was discharged with diagnosis of urinary tract infection and was given an antibiotic prescription which she never used. She came back for follow up on 04/11 at [facility] and was seen BY Dr. Gallegos and at point due to absence of bowel movement for the past couple of weeks and with significant abdominal pains, she was for bowel disimpaction. At that point she did not have any fever and no other respiratory symptoms. COVID test from [facility] was negative. PAST MEDICAL HISTORY: As mentioned, she has history of constipation and she had been having intermittent abdominal pain. She also has had problems with anorexia for awhile. She has lost some weight but has regained it back without changes in diet. She is trying to eat healthy and has been exercising. ALLERGIES: NO KNOWN DRUG ALLERGIES. IMMUNIZATIONS: Up-to-date. She has regular menstrual periods. Other previous medical issues are some thyroid nodules that she was seen for by an quantitative software engineer. She did show some mild elevation of thyroid function tests. HOSPITAL COURSE: She was admitted on pediatric floor. She received IV fluids and was given magnesium citrate to help with bowel movements and she did pass out some stool after a day of receiving magnesium citrate. She was then discharged with plans to continue MiraLax at home, follow up at [facility] in a couple of days but may call anytime if there are any other concerns. On exam, she was awake, alert. HEENT normal. No oral lesions. Supple neck. Thyroid not enlarged on exam. Lungs clear. Heart regular rate and rhythm, no murmur appreciated. Abdomen soft, no palpable mass, no tenderness, bowel sounds are normal. Extremities appeared warm and well perfused. PLAN: Follow up in [facility], use pain medication such as Naproxen as needed for abdominal pain, call anytime if there are any other concerns.
== END 2021-04-12 13:45 | disposition home or self-care (01) ==
LOC: M PED 16:23 → INTOOBSV 16:23
PROVIDERS: ADMIT Hospitalist; ATTEND Hospitalist
DX: K59.00 Constipation, unspecified (principal)
CPT/HCPCS: 74018; 96360; 96361; J3480

== ENCOUNTER → 2021-04-11 | Outpatient (CLI) | payer OTHER ==
[~2021-04-11] MED LIST changes: +MAGNESIUM CITRATE 300 ML BTL PO ONE; +ONDANSETRON 4 MG TAB PO ONE
[2021-04-18 20:17] LABS: ANTINUCLEAR ANTIBODIES DIRECT Negative (Negative); DQ2(DQ1A 0501/0505,DQB1 02XX) Negative (.); DQ8(DQA1 03XX, DQB1 0302) Negative (.); TISSUE TRANSGLUTAMINASE IgG <2 U/mL (0-5)
== END ==
LOC: M PLALAB 10:20
PROVIDERS: ATTEND Internal Medicine Endocrinology, Diabetes & Metabolism
DX: R53.83 Other fatigue (principal)

== ENCOUNTER → 2021-04-19 | Outpatient (REF) | payer OTHER ==
[~2021-04-19] MED LIST changes: +CLONI1TA PO; +FERR325T3 PO; +LEVS0.123 PO; +MIRA1POW3 PO; +OMEP-173 PO; -OMEP-218 PO; +VITATAB74 PO
== END ==
LOC: M LAB REF 17:43
PROVIDERS: ATTEND Internal Medicine Endocrinology, Diabetes & Metabolism
DX: E04.2 Nontoxic multinodular goiter (principal)

== ENCOUNTER → 2021-05-18 | Outpatient (REF) ==
[~2021-05-18] MED LIST changes: -OMEP-173 PO; +OMEP-218 PO
== END ==
LOC: M EMP 15:05
PROVIDERS: ATTEND Family Medicine
DX: Z20.822 Contact with and (suspected) exposure to COVID-19 (principal)

== ENCOUNTER → 2021-06-05 | Outpatient (REF) | payer OTHER ==
[~2021-06-05] MED LIST changes: +OMEP-173 PO; -OMEP-218 PO
[2021-06-05 13:44] LABS: APPEARANCE, URINE HAZY (CLEAR); BACTERIA, URINE AUTO 1+ (NEGATIVE); BILIRUBIN, URINE AUTO NEGATIVE (NEGATIVE); BLOOD, URINE BLOOD NEGATIVE (NEGATIVE); COLOR, URINE YELLOW (YELLOW); GLUCOSE, URINE (UA) AUTO NEGATIVE (NEGATIVE); KETONE, URINE AUTO NEGATIVE (NEGATIVE); LEUKOCYTE ESTERASE, URINE AUTO NEGATIVE (NEGATIVE); MUCUS, URINE SMALL (NEGATIVE); NITRITE, URINE AUTO NEGATIVE (NEGATIVE); PROTEIN, URINE AUTO NEGATIVE (NEGATIVE); RBC, URINE AUTO 0 /HPF (0-3); SPECIFIC GRAVITY URINE AUTO 1.017 (1.002-1.035); SQUAMOUS EPITHELIAL CELL UR AU 19 /HPF (0-6); WBC, URINE AUTO 1 /HPF (0-3)
== END ==
LOC: M SFHCWAGY 12:54
PROVIDERS: ATTEND Advanced Practice Midwife
DX: N39.0 Urinary tract infection, site not specified (principal)

== ENCOUNTER → 2021-07-12 | Outpatient (CLI) | payer OTHER | LOC: M RAD 13:40 | PROVIDERS: ATTEND Physician Assistant | DX: R22.42 Localized swelling, mass and lump, left lower limb (principal) ==

== ENCOUNTER → 2021-07-18 | Outpatient (CLI) | payer OTHER | LOC: M RAD 13:53 | PROVIDERS: ATTEND Advanced Practice Midwife | DX: R10.9 Unspecified abdominal pain (principal) ==

== ENCOUNTER → 2021-07-18 | Outpatient (CLI) | payer OTHER ==
[2021-07-18 16:53] LABS: BASO # 0.1 10^3/uL (0.0-0.2); BASO % 0.8 % (0.0-1.0); EOS # 0.1 10^3/uL (0.0-0.5); EOS % 1.4 % (0.0-3.0); HEMATOCRIT 36.9 % (36.0-47.0); HEMOGLOBIN 11.8 g/dl (12.0-15.5); LYMPH # 1.9 10^3/uL (1.5-5.0); LYMPH % 27.9 % (24.0-44.0); MEAN CORPUSCULAR HEMOGLOBIN 26.8 pg (27.0-33.0); MEAN CORPUSCULAR VOLUME 83.9 fl (80.0-96.0); MONO # 0.4 10^3/uL (0.0-0.8); MONO % 6.2 % (2.0-8.0); NEUTROPHILS # 4.2 10^3/uL (1.5-8.5); NEUTROPHILS % 63.5 % (36.0-66.0); PLATELET COUNT, AUTOMATED 375 10^3/uL (150-450); WHITE BLOOD COUNT 6.6 10^3/uL (4.0-10.0)
[2021-07-18 17:13] LABS: ERYTHROCYTE SEDIMENTATION RATE 12 mm/hr (0-20)
[2021-07-18 18:41] LABS: C REACTIVE PROTEIN QUANTITATIV < 0.30 MG/DL (0.00-0.30); URIC ACID 3.9 MG/DL (2.6-6.0)
== END ==
LOC: M LAB 15:09
PROVIDERS: ATTEND Orthopaedic Surgery
DX: R22.42 Localized swelling, mass and lump, left lower limb (principal)

== ENCOUNTER → 2021-08-14 | Outpatient (REF) | payer OTHER ==
[2021-08-14 14:05] LABS: APPEARANCE, URINE HAZY (CLEAR); BACTERIA, URINE AUTO NEGATIVE (NEGATIVE); BILIRUBIN, URINE AUTO NEGATIVE (NEGATIVE); BLOOD, URINE BLOOD 1+ (NEGATIVE); COLOR, URINE YELLOW (YELLOW); GLUCOSE, URINE (UA) AUTO NEGATIVE (NEGATIVE); KETONE, URINE AUTO NEGATIVE (NEGATIVE); LEUKOCYTE ESTERASE, URINE AUTO NEGATIVE (NEGATIVE); NITRITE, URINE AUTO NEGATIVE (NEGATIVE); PROTEIN, URINE AUTO NEGATIVE (NEGATIVE); RBC, URINE AUTO 2 /HPF (0-3); SQUAMOUS EPITHELIAL CELL UR AU 5 /HPF (0-6); UROBILINOGEN, URINE AUTO 0.2 mg/dL (0.0-2.0); WBC, URINE AUTO 0 /HPF (0-3)
== END ==
LOC: M SMT 12:54
PROVIDERS: ATTEND Physician Assistant
DX: R10.9 Unspecified abdominal pain (principal)

== ENCOUNTER → 2021-09-27 | Outpatient (REF) | payer OTHER | LOC: M LAB REF 14:20 | PROVIDERS: ATTEND Internal Medicine | DX: J02.9 Acute pharyngitis, unspecified (principal) ==

== ENCOUNTER → 2021-09-27 | Outpatient (CLI) | payer OTHER | LOC: M WHC 11:08 | PROVIDERS: ATTEND Physician Assistant | DX: R10.9 Unspecified abdominal pain (principal); N30.90 Cystitis, unspecified without hematuria ==

== ENCOUNTER → 2021-09-28 | Outpatient (CLI) | payer OTHER ==
[2021-09-28 15:44] LABS: BASO % 0.5 % (0.0-1.0); EOS # 0.1 10^3/uL (0.0-0.5); EOS % 0.8 % (0.0-3.0); HEMATOCRIT 37.7 % (36.0-47.0); HEMOGLOBIN 11.8 g/dl (12.0-15.5); LYMPH # 2.2 10^3/uL (1.5-5.0); LYMPH % 29.2 % (24.0-44.0); MEAN CORPUSCULAR HGB CONC 31.3 g/dl (32.0-36.5); MONO # 0.5 10^3/uL (0.0-0.8); MONO % 6.3 % (2.0-8.0); NEUTROPHILS # 4.7 10^3/uL (1.5-8.5); NEUTROPHILS % 62.8 % (36.0-66.0); PLATELET COUNT, AUTOMATED 344 10^3/uL (150-450); RED BLOOD COUNT 4.54 10^6/uL (4.00-5.40); WHITE BLOOD COUNT 7.5 10^3/uL (4.0-10.0)
[2021-09-28 16:08] LABS: ALBUMIN 3.5 GM/DL (3.2-5.2); ALT/SGPT 22 U/L (12-78); BILIRUBIN,TOTAL 0.3 MG/DL (0.2-1.0); BLOOD UREA NITROGEN 9 MG/DL (7-18); CALCIUM LEVEL 8.9 MG/DL (8.5-10.1); CARBON DIOXIDE LEVEL 30 MEQ/L (21-32); CHLORIDE LEVEL 105 MEQ/L (98-107); CREATININE FOR GFR 0.68 MG/DL (0.55-1.30); FERRITIN 4 NG/ML (8-252); FREE T4 1.24 NG/DL (0.76-1.46); GLOMERULAR FILTRATION RATE > 60.0 (>60); GLUCOSE, FASTING 90 MG/DL (70-100); POTASSIUM SERUM 4.1 MEQ/L (3.5-5.1); SODIUM LEVEL 139 MEQ/L (136-145)
[2021-09-28 22:52] LABS: MONO REFLEX EBV COMP NEGATIVE (NEGATIVE)
[2021-10-01 10:14] LABS: VITAMIN B12 LEVEL 297 PG/ML
[2021-10-01 10:22] LABS: FOLATE 8.6 NG/ML
[2021-10-01 17:07] LABS: EBV AB TO NUCLEAR ANTIGEN >600.0 U/mL (0.0-17.9); EBV VIRAL CAPSID AG IgM <36.0 U/mL (0.0-35.9); VITAMIN D 1,25 DIHYDROXY 72.5 pg/mL (19.9-79.3)
== END ==
LOC: M PLALAB 12:42
PROVIDERS: ATTEND Pediatrics
DX: J02.9 Acute pharyngitis, unspecified (principal)

== ENCOUNTER → 2021-10-17 | Outpatient (CLI) | payer OTHER ==
[~2021-10-17] MED LIST changes: +PROHANCE 279.3MG/ML 15ML VIAL ONE; +PROHANCE 279.3MG/ML 5ML VIAL ONE
== END ==
LOC: M PLAIMG 14:52
PROVIDERS: ATTEND Ophthalmology
DX: H57.10 Ocular pain, unspecified eye (principal)

== ENCOUNTER → 2021-11-22 | Outpatient (REF) | payer OTHER ==
[~2021-11-22] MED LIST changes: -PROHANCE 279.3MG/ML 15ML VIAL ONE; -PROHANCE 279.3MG/ML 5ML VIAL ONE
[2021-11-22 17:41] LABS: APPEARANCE, URINE HAZY (CLEAR); BACTERIA, URINE AUTO NEGATIVE (NEGATIVE); BILIRUBIN, URINE AUTO NEGATIVE (NEGATIVE); BLOOD, URINE BLOOD NEGATIVE (NEGATIVE); COLOR, URINE YELLOW (YELLOW); GLUCOSE, URINE (UA) AUTO NEGATIVE (NEGATIVE); KETONE, URINE AUTO NEGATIVE (NEGATIVE); LEUKOCYTE ESTERASE, URINE AUTO NEGATIVE (NEGATIVE); MUCUS, URINE SMALL (NEGATIVE); NITRITE, URINE AUTO NEGATIVE (NEGATIVE); PROTEIN, URINE AUTO NEGATIVE (NEGATIVE); RBC, URINE AUTO 0 /HPF (0-3); SPECIFIC GRAVITY URINE AUTO 1.024 (1.002-1.035); SQUAMOUS EPITHELIAL CELL UR AU 8 /HPF (0-6); UROBILINOGEN, URINE AUTO 0.2 mg/dL (0.0-2.0); WBC, URINE AUTO 0 /HPF (0-3)
== END ==
LOC: M SMT 16:46
PROVIDERS: ATTEND Urology
DX: N30.90 Cystitis, unspecified without hematuria (principal)

== ENCOUNTER → 2022-01-22 | Outpatient (CLI) | payer OTHER ==
[2022-01-22 13:22] LABS: BASO % 0.5 % (0.0-1.0); EOS % 0.4 % (0.0-3.0); HEMATOCRIT 36.6 % (36.0-47.0); HEMOGLOBIN 11.6 g/dl (12.0-15.5); LYMPH # 2.1 10^3/uL (1.5-5.0); LYMPH % 28.7 % (24.0-44.0); MEAN CORPUSCULAR HGB CONC 31.7 g/dl (32.0-36.5); MEAN CORPUSCULAR VOLUME 81.9 fl (80.0-96.0); MONO # 0.4 10^3/uL (0.0-0.8); MONO % 5.2 % (2.0-8.0); NEUTROPHILS # 4.8 10^3/uL (1.5-8.5); NEUTROPHILS % 64.9 % (36.0-66.0); PLATELET COUNT, AUTOMATED 319 10^3/uL (150-450); RED BLOOD COUNT 4.47 10^6/uL (4.00-5.40); WHITE BLOOD COUNT 7.4 10^3/uL (4.0-10.0)
[2022-01-22 14:52] LABS: ALBUMIN 3.8 GM/DL (3.2-5.2); ALT/SGPT 16 U/L (12-78); BILIRUBIN,TOTAL 0.4 MG/DL (0.2-1.0); BLOOD UREA NITROGEN 15 MG/DL (7-18); CALCIUM LEVEL 9.3 MG/DL (8.5-10.1); CARBON DIOXIDE LEVEL 27 MEQ/L (21-32); CHLORIDE LEVEL 101 MEQ/L (98-107); CREATININE FOR GFR 0.79 MG/DL (0.55-1.30); FERRITIN 6 NG/ML (8-252); FREE T4 0.63 NG/DL (0.76-1.46); GLOMERULAR FILTRATION RATE > 60.0 (>60); GLUCOSE, FASTING 75 MG/DL (70-100); POTASSIUM SERUM 4.1 MEQ/L (3.5-5.1); SODIUM LEVEL 131 MEQ/L (136-145); TOTAL PROTEIN 7.7 GM/DL (6.4-8.2)
== END ==
LOC: M EKG 12:41
PROVIDERS: ATTEND Pediatrics
DX: Z01.810 Encounter for preprocedural cardiovascular examination (principal)

== ENCOUNTER → 2022-01-25 | Outpatient (REF) | payer OTHER ==
[2022-01-25 16:19] LABS: GC DNA AMPLIFICATION NEGATIVE (NEGATIVE)
== END ==
LOC: M SFHCWAGY 13:01
PROVIDERS: ATTEND Advanced Practice Midwife
DX: Z12.4 Encounter for screening for malignant neoplasm of cervix (principal); Z11.3 Encounter for screening for infections with a predominantly sexual mode of transmission; R87.610 Atypical squamous cells of undetermined significance on cytologic smear of cervix (ASC-US)

== ENCOUNTER → 2022-02-01 | Outpatient (CLI) | payer OTHER ==
[2022-02-01 11:55] LABS: HEPATITIS B SURFACE ANTIGEN NEGATIVE (NEGATIVE); HEPATITIS C VIRUS ABY INDEX < 0.0 INDEX (<0.8); HIV 1&2 SCREEN CENTAUR NEGATIVE (NEGATIVE)
== END ==
LOC: M PLALAB 09:00
PROVIDERS: ATTEND Advanced Practice Midwife
DX: Z11.3 Encounter for screening for infections with a predominantly sexual mode of transmission (principal); Z12.4 Encounter for screening for malignant neoplasm of cervix

== ENCOUNTER → 2022-02-06 | Outpatient (CLI) | payer OTHER ==
[2022-02-06 17:52] LABS: FREE T4 1.44 NG/DL (0.76-1.46); THYROID STIMULATING HORMONE 6.1 uIU/ML (0.358-3.740)
== END ==
LOC: M LAB 16:21
PROVIDERS: ATTEND Pediatrics
DX: E03.8 Other specified hypothyroidism (principal)

== ENCOUNTER → 2022-03-07 | Outpatient (CLI) | payer OTHER ==
[2022-03-07 14:47] LABS: HEMOGLOBIN 12.5 g/dl (12.0-15.5); MEAN CORPUSCULAR HEMOGLOBIN 26.4 pg (27.0-33.0); MEAN CORPUSCULAR HGB CONC 31.3 g/dl (32.0-36.5); MEAN CORPUSCULAR VOLUME 84.6 fl (80.0-96.0); PLATELET COUNT, AUTOMATED 365 10^3/uL (150-450); RED BLOOD COUNT 4.73 10^6/uL (4.00-5.40); WHITE BLOOD COUNT 6.5 10^3/uL (4.0-10.0)
[2022-03-07 15:51] LABS: FREE T4 1.23 NG/DL (0.76-1.46)
== END ==
LOC: M PLALAB 10:19
PROVIDERS: ATTEND Pediatrics
DX: E03.8 Other specified hypothyroidism (principal)

== ENCOUNTER → 2022-06-03 | Outpatient (CLI) | payer OTHER ==
[2022-06-03 14:18] LABS: THYROID STIMULATING HORMONE 26.98 uIU/ML (0.55-4.78)
[2022-06-03 14:20] LABS: FREE T4 0.93 NG/DL (0.89-1.76)
== END ==
LOC: M LAB 12:55
PROVIDERS: ATTEND Specialist
DX: E03.8 Other specified hypothyroidism (principal)

== ENCOUNTER → 2023-01-17 | Outpatient (CLI) | payer OTHER ==
[2023-01-17 11:56] LABS: HEMATOCRIT 39.3 % (36.0-47.0); HEMOGLOBIN 13.2 g/dl (12.0-15.5); MEAN CORPUSCULAR HEMOGLOBIN 30.2 pg (27.0-33.0); MEAN CORPUSCULAR HGB CONC 33.6 g/dl (32.0-36.5); MEAN CORPUSCULAR VOLUME 89.9 fl (80.0-96.0); PLATELET COUNT, AUTOMATED 303 10^3/uL (150-450); RED BLOOD COUNT 4.37 10^6/uL (4.00-5.40)
[2023-01-17 12:45] LABS: HIV 1&2 SCREEN NEGATIVE (NEGATIVE)
[2023-01-17 12:54] LABS: HEPATITIS C VIRUS ABY INDEX 0.12 INDEX (<0.8)
[2023-01-17 20:35] LABS: GC DNA AMPLIFICATION NEGATIVE (NEGATIVE)
== END ==
LOC: M PLALAB 08:35
PROVIDERS: ATTEND Advanced Practice Midwife
DX: Z34.01 Encounter for supervision of normal first pregnancy, first trimester (principal)

== ENCOUNTER → 2023-01-17 | Outpatient (CLI) | payer OTHER ==
[2023-01-17 11:56] LABS: BASO % 0.3 % (0.0-1.0); EOS % 0.6 % (0.0-3.0); HEMOGLOBIN 13.5 g/dl (12.0-15.5); LYMPH # 1.5 10^3/uL (1.5-5.0); LYMPH % 22.1 % (24.0-44.0); MEAN CORPUSCULAR HEMOGLOBIN 30.5 pg (27.0-33.0); MEAN CORPUSCULAR HGB CONC 33.8 g/dl (32.0-36.5); MEAN CORPUSCULAR VOLUME 90.3 fl (80.0-96.0); MONO # 0.4 10^3/uL (0.0-0.8); MONO % 5.7 % (2.0-8.0); NEUTROPHILS # 4.8 10^3/uL (1.5-8.5); NEUTROPHILS % 70.9 % (36.0-66.0); PLATELET COUNT, AUTOMATED 291 10^3/uL (150-450); RED BLOOD COUNT 4.43 10^6/uL (4.00-5.40); WHITE BLOOD COUNT 6.7 10^3/uL (4.0-10.0)
[2023-01-17 12:17] LABS: FERRITIN 124.4 NG/ML (7.3-270.7)
[2023-01-17 12:19] LABS: PERCENT SATURATION 29.2 % (13.2-45.0)
== END ==
LOC: M PLALAB 08:33
PROVIDERS: ATTEND Internal Medicine Hematology & Oncology
DX: D50.9 Iron deficiency anemia, unspecified (principal)

== ENCOUNTER → 2023-01-28 | Outpatient (REF) | payer OTHER | LOC: M PLALAB 11:35 | PROVIDERS: ATTEND Advanced Practice Midwife | DX: Z34.92 Encounter for supervision of normal pregnancy, unspecified, second trimester (principal) ==

== ENCOUNTER → 2023-01-29 | Outpatient (CLI) | payer OTHER | LOC: M PLALAB 13:24 | PROVIDERS: ATTEND Advanced Practice Midwife | DX: Z36.9 Encounter for antenatal screening, unspecified (principal) ==

== ENCOUNTER → 2023-03-05 | Outpatient (CLI) | payer OTHER | LOC: M WHC 13:14 | PROVIDERS: ATTEND Advanced Practice Midwife | DX: Z34.92 Encounter for supervision of normal pregnancy, unspecified, second trimester (principal); Z3A.19 19 weeks gestation of pregnancy ==

== ENCOUNTER → 2023-03-05 | Outpatient (CLI) | payer OTHER ==
[2023-03-05 16:15] LABS: ALKALINE PHOSPHATASE 72 U/L (46-116); ALT/SGPT < 9 U/L (7.0-40); AST/SGOT 12 U/L (<34); BILIRUBIN,TOTAL 0.3 MG/DL (0.3-1.2); BLOOD UREA NITROGEN 6 MG/DL (9-23); CALCIUM LEVEL 9.2 MG/DL (8.5-10.1); CARBON DIOXIDE LEVEL 26 MMOL/L (20-31); CHLORIDE LEVEL 100 MMOL/L (98-107); CREATININE FOR GFR 0.51 MG/DL (0.55-1.30); GLOMERULAR FILTRATION RATE > 60.0 (>60); GLUCOSE, FASTING 66 MG/DL (60-100); POTASSIUM SERUM 3.8 MMOL/L (3.5-5.1); SODIUM LEVEL 134 MMOL/L (136-145); TOTAL PROTEIN 6.2 G/DL (5.7-8.2)
== END ==
LOC: M PLALAB 14:30
PROVIDERS: ATTEND Physician Assistant Medical
DX: K59.00 Constipation, unspecified (principal)

== ENCOUNTER → 2023-03-07 | Outpatient (REF) | payer OTHER | LOC: M PLALAB 15:52 | PROVIDERS: ATTEND Advanced Practice Midwife | DX: Z34.02 Encounter for supervision of normal first pregnancy, second trimester (principal) ==

== ENCOUNTER → 2023-04-09 | Outpatient (CLI) | payer OTHER ==
[2023-04-09 10:49] LABS: FREE T4 0.72 NG/DL (0.89-1.76)
[2023-04-09 10:52] LABS: TOTAL T3 140.9 NG/DL (60.0-181.0)
[2023-04-09 11:37] LABS: THYROID STIMULATING HORMONE > 150.000 uIU/ML (0.55-4.78)
== END ==
LOC: M WUC 08:10
PROVIDERS: ATTEND Internal Medicine Endocrinology, Diabetes & Metabolism
DX: E89.0 Postprocedural hypothyroidism (principal)

== ENCOUNTER → 2023-04-30 | Outpatient (CLI) | payer OTHER ==
[2023-04-30 12:35] LABS: BASO % 0.4 % (0.0-1.0); EOS # 0.1 10^3/uL (0.0-0.5); EOS % 0.9 % (0.0-3.0); HEMATOCRIT 36.6 % (36.0-47.0); HEMOGLOBIN 12.2 g/dl (12.0-15.5); LYMPH % 23.7 % (24.0-44.0); MEAN CORPUSCULAR HEMOGLOBIN 31.3 pg (27.0-33.0); MEAN CORPUSCULAR HGB CONC 33.3 g/dl (32.0-36.5); MEAN CORPUSCULAR VOLUME 93.8 fl (80.0-96.0); MONO # 0.5 10^3/uL (0.0-0.8); MONO % 5.3 % (2.0-8.0); NEUTROPHILS # 5.8 10^3/uL (1.5-8.5); NEUTROPHILS % 68.8 % (36.0-66.0); PLATELET COUNT, AUTOMATED 253 10^3/uL (150-450); WHITE BLOOD COUNT 8.5 10^3/uL (4.0-10.0)
[2023-04-30 12:58] LABS: TOTAL PROTEIN,RANDOM URINE 26.8 MG/DL (0.0-14.0)
[2023-04-30 13:03] LABS: CREATININE,RANDOM URINE 193.6 MG/DL
[2023-04-30 13:05] LABS: LDH LACTATE DEHYDROGENASE 179 U/L (120-246); URIC ACID 3.6 MG/DL (3.1-7.8)
[2023-04-30 13:09] LABS: ALBUMIN 3.1 G/DL (3.2-5.2); ALKALINE PHOSPHATASE 76 U/L (46-116); ALT/SGPT 9 U/L (7.0-40); AST/SGOT 12 U/L (<34); BILIRUBIN,TOTAL 0.3 MG/DL (0.3-1.2); BLOOD UREA NITROGEN 8 MG/DL (9-23); CALCIUM LEVEL 8.9 MG/DL (8.5-10.1); CARBON DIOXIDE LEVEL 26 MMOL/L (20-31); CHLORIDE LEVEL 103 MMOL/L (98-107); CREATININE FOR GFR 0.54 MG/DL (0.55-1.30); GLOMERULAR FILTRATION RATE > 60.0 (>60); GLUCOSE, FASTING 59 MG/DL (60-100); POTASSIUM SERUM 3.8 MMOL/L (3.5-5.1); SODIUM LEVEL 136 MMOL/L (136-145); TOTAL PROTEIN 6.6 G/DL (5.7-8.2)
[2023-05-01 15:10] LABS: HERPES ZOSTER, VARICELLA IgG 222 index (Immune >165); LEAD BLOOD ADULT <1.0 ug/dL (0.0-3.4)
== END ==
LOC: M WUC 08:27
PROVIDERS: ATTEND Midwife
DX: O09.90 Supervision of high risk pregnancy, unspecified, unspecified trimester (principal); Z3A.00 Weeks of gestation of pregnancy not specified

== ENCOUNTER → 2023-04-30 | Outpatient (REF) | payer OTHER ==
[2023-04-30 16:22] LABS: TOTAL T3 128.7 NG/DL (60.0-181.0)
[2023-04-30 16:23] LABS: FREE T4 0.71 NG/DL (0.89-1.76)
[2023-04-30 16:25] LABS: THYROID STIMULATING HORMONE > 150.000 uIU/ML (0.55-4.78)
== END ==
LOC: M LAB REF 16:02
PROVIDERS: ATTEND Internal Medicine Endocrinology, Diabetes & Metabolism
DX: Z08 Encounter for follow-up examination after completed treatment for malignant neoplasm (principal); E89.0 Postprocedural hypothyroidism; Z85.850 Personal history of malignant neoplasm of thyroid

== ENCOUNTER → 2023-05-13 | Outpatient (CLI) | payer OTHER ==
[2023-05-13 15:55] LABS: BASO % 0.4 % (0.0-1.0); EOS # 0.1 10^3/uL (0.0-0.5); HEMATOCRIT 35.5 % (36.0-47.0); HEMOGLOBIN 11.9 g/dl (12.0-15.5); LYMPH # 1.9 10^3/uL (1.5-5.0); LYMPH % 23.5 % (24.0-44.0); MEAN CORPUSCULAR HEMOGLOBIN 31.6 pg (27.0-33.0); MEAN CORPUSCULAR HGB CONC 33.5 g/dl (32.0-36.5); MEAN CORPUSCULAR VOLUME 94.2 fl (80.0-96.0); MONO # 0.4 10^3/uL (0.0-0.8); MONO % 4.7 % (2.0-8.0); NEUTROPHILS # 5.6 10^3/uL (1.5-8.5); NEUTROPHILS % 69.9 % (36.0-66.0); PLATELET COUNT, AUTOMATED 235 10^3/uL (150-450); RED BLOOD COUNT 3.77 10^6/uL (4.00-5.40)
[2023-05-13 16:19] LABS: GLUCOSE CHALLENGE TEST 1 HOUR 120 MG/DL (LESS THAN 140)
[2023-05-13 16:22] LABS: THYROID STIMULATING HORMONE 133.323 uIU/ML (0.55-4.78)
[2023-05-13 16:24] LABS: FREE T4 0.63 NG/DL (0.89-1.76)
[2023-05-13 16:38] LABS: HEMOGLOBIN A1c 4.8 % (4.0-6.0)
[2023-05-13 16:48] LABS: HIV 1&2 SCREEN NEGATIVE (NEGATIVE)
== END ==
LOC: M LAB 14:25
PROVIDERS: ATTEND Midwife
DX: O09.90 Supervision of high risk pregnancy, unspecified, unspecified trimester (principal); Z3A.00 Weeks of gestation of pregnancy not specified

== ENCOUNTER 2023-05-23 20:07 | Outpatient (CLI) | payer OTHER ==
[~2023-05-23] VITALS: Ht 175.3 cm; Wt 117.9 kg
[2023-05-23 20:17] VITALS: BP 134/83
[2023-05-23] MEDS ORDERED: LR 1,000 ML IV ONE (21:30)
[2023-05-23] MEDS ORDERED: LEVO2TA PO (21:31)
[2023-05-23 21:52] LABS: ALBUMIN 2.8 G/DL (3.2-5.2); ALKALINE PHOSPHATASE 77 U/L (46-116); ALT/SGPT < 9 U/L (7.0-40); AST/SGOT 18 U/L (<34); BILIRUBIN,TOTAL 0.2 MG/DL (0.3-1.2); BLOOD UREA NITROGEN 6 MG/DL (9-23); CALCIUM LEVEL 8.7 MG/DL (8.5-10.1); CARBON DIOXIDE LEVEL 22 MMOL/L (20-31); CHLORIDE LEVEL 107 MMOL/L (98-107); CREATININE FOR GFR 0.39 MG/DL (0.55-1.30); GLOMERULAR FILTRATION RATE > 60.0 (>60); GLUCOSE, FASTING 96 MG/DL (60-100); POTASSIUM SERUM 4.1 MMOL/L (3.5-5.1); SODIUM LEVEL 135 MMOL/L (136-145); TOTAL PROTEIN 6.2 G/DL (5.7-8.2)
[2023-05-23 21:55] LABS: HEMATOCRIT 34.1 % (36.0-47.0); HEMOGLOBIN 11.6 g/dl (12.0-15.5); MEAN CORPUSCULAR HEMOGLOBIN 31.5 pg (27.0-33.0); MEAN CORPUSCULAR VOLUME 92.7 fl (80.0-96.0); PLATELET COUNT, AUTOMATED 225 10^3/uL (150-450); RED BLOOD COUNT 3.68 10^6/uL (4.00-5.40); WHITE BLOOD COUNT 8.6 10^3/uL (4.0-10.0)
[2023-05-23] MEDS ORDERED: LR 1,000 ML IV SCH (23:00)
[2023-05-23 23:12] VITALS: BP 106/51
[2023-05-23] MEDS ORDERED: PROMETHAZINE 25MG/ML 1ML VIAL IV ONE (23:15)
[2023-05-23] MEDS ORDERED: MORPHINE 10 MG/ML 1ML VIAL IV ONE (23:15)
[2023-05-23] MEDS ORDERED: cefTRIAXone SOD 1 GM in D5W MINI-BAG PLUS 50 ML IV SCH (23:30)
== END 2023-05-24 03:53 | disposition home or self-care (01) ==
LOC: M LDO 20:07
PROVIDERS: ATTEND Advanced Practice Midwife
DX: O26.833 Pregnancy related renal disease, third trimester (principal); N13.30 Unspecified hydronephrosis; O9A.113 Malignant neoplasm complicating pregnancy, third trimester; C73 Malignant neoplasm of thyroid gland; Z3A.30 30 weeks gestation of pregnancy
CPT/HCPCS: 59025; 76775; 80053; 81001; 85027; 87086; 96365; 96374; 96375; G0463; J0696; J2550

== ENCOUNTER 2023-07-08 07:30 | Outpatient (CLI) | payer OTHER ==
[~2023-07-08] VITALS: Ht 175.3 cm; Wt 121.6 kg
[~2023-07-08 07:30] MED LIST changes: +LEVO2TA PO; -MIRA1POW3 PO; +MIRA33506 PO
[2023-07-08] MEDS ORDERED: ACET500P3 PO (08:23)
[2023-07-08] MEDS ORDERED: HOME MED LIST COMPLETE! XX SCH (09:00)
[2023-07-08] MEDS: FIORICET TAB PO ONE (09:20)
[2023-07-08 09:22] LABS: HEMATOCRIT 33.2 % (36.0-47.0); HEMOGLOBIN 11.3 g/dl (12.0-15.5); PLATELET COUNT, AUTOMATED 241 10^3/uL (150-450); RED BLOOD COUNT 3.65 10^6/uL (4.00-5.40); WHITE BLOOD COUNT 7.3 10^3/uL (4.0-10.0)
[2023-07-08 09:44] LABS: URIC ACID 4.5 MG/DL (3.1-7.8)
[2023-07-08 09:47] LABS: LDH LACTATE DEHYDROGENASE 163 U/L (120-246)
[2023-07-08 09:48] LABS: ALT/SGPT 10 U/L (7.0-40); AST/SGOT 14 U/L (<34); BILIRUBIN,TOTAL 0.3 MG/DL (0.3-1.2); CREATININE FOR GFR 0.52 MG/DL (0.55-1.30); GLOMERULAR FILTRATION RATE > 60.0 (>60)
[2023-07-08 10:20] LABS: TOTAL PROTEIN,RANDOM URINE 8.6 MG/DL (0.0-14.0)
[2023-07-08] MEDS: PROMETHAZINE 25MG/ML 1ML VIAL IV PRN (12:09)
[2023-07-08] MEDS: MORPHINE 10 MG/ML 1ML VIAL IV ONE (12:10)
[2023-07-08] MEDS: LR 1,000 ML IV SCH (12:10)
[2023-07-08] MEDS: LACTATED RINGER'S 1000 ML IV STA (12:11)
== END 2023-07-08 16:00 | disposition home or self-care (01) ==
LOC: M LDO 07:30
PROVIDERS: ATTEND Obstetrics & Gynecology
DX: O99.353 Diseases of the nervous system complicating pregnancy, third trimester (principal); R51.0 Headache with orthostatic component, not elsewhere classified; Z3A.37 37 weeks gestation of pregnancy; Z85.850 Personal history of malignant neoplasm of thyroid
CPT/HCPCS: 59025; 82247; 82570; 83615; 84156; 84450; 84460; 84550; 85027; G0463; J2550

== ENCOUNTER → 2023-09-05 | Outpatient (CLI) | payer OTHER ==
[~2023-09-05] MED LIST changes: +ACET500P3 PO
[2023-09-05 12:25] LABS: BASO # 0.1 10^3/uL (0.0-0.2); BASO % 0.7 % (0.0-1.0); EOS # 0.1 10^3/uL (0.0-0.5); EOS % 1.5 % (0.0-3.0); HEMATOCRIT 40.3 % (36.0-47.0); HEMOGLOBIN 13.1 g/dl (12.0-15.5); LYMPH # 1.6 10^3/uL (1.5-5.0); LYMPH % 21.9 % (24.0-44.0); MEAN CORPUSCULAR HEMOGLOBIN 28.5 pg (27.0-33.0); MEAN CORPUSCULAR HGB CONC 32.5 g/dl (32.0-36.5); MEAN CORPUSCULAR VOLUME 87.8 fl (80.0-96.0); MONO # 0.5 10^3/uL (0.0-0.8); MONO % 6.6 % (2.0-8.0); NEUTROPHILS # 5.1 10^3/uL (1.5-8.5); PLATELET COUNT, AUTOMATED 360 10^3/uL (150-450); RED BLOOD COUNT 4.59 10^6/uL (4.00-5.40); WHITE BLOOD COUNT 7.3 10^3/uL (4.0-10.0)
[2023-09-05 12:50] LABS: ALBUMIN 3.9 G/DL (3.2-5.2); ALKALINE PHOSPHATASE 94 U/L (46-116); ALT/SGPT 28 U/L (7.0-40); AST/SGOT 19 U/L (<34); BILIRUBIN,TOTAL 0.3 MG/DL (0.3-1.2); BLOOD UREA NITROGEN 14 MG/DL (9-23); CALCIUM LEVEL 9.8 MG/DL (8.5-10.1); CARBON DIOXIDE LEVEL 29 MMOL/L (20-31); CHLORIDE LEVEL 101 MMOL/L (98-107); CHOLESTEROL LEVEL 347 MG/DL (<200); CHOLESTEROL RISK RATIO 5.21 (<5); CREATININE FOR GFR 0.85 MG/DL (0.55-1.30); FREE T4 0.51 NG/DL (0.89-1.76); GLOMERULAR FILTRATION RATE > 60.0 (>60); GLUCOSE, FASTING 75 MG/DL (60-100); HDL CHOLESTEROL 66.6 MG/DL (>40); NON-HDL-C 280.4 MG/DL; POTASSIUM SERUM 4.7 MMOL/L (3.5-5.1); SODIUM LEVEL 136 MMOL/L (136-145); THYROID STIMULATING HORMONE 149.984 uIU/ML (0.55-4.78); THYROXINE (T4) 3.7 UG/DL (4.5-10.9); TOTAL PROTEIN 7.2 G/DL (5.7-8.2); TRIGLYCERIDES LEVEL 97 MG/DL (<150)
== END ==
LOC: M PLALAB 09:33
PROVIDERS: ATTEND Registered Nurse
DX: E89.0 Postprocedural hypothyroidism (principal); Z79.899 Other long term (current) drug therapy; J06.9 Acute upper respiratory infection, unspecified; Z13.220 Encounter for screening for lipoid disorders

== ENCOUNTER 2024-02-18 14:21 | Emergency (ER) | payer OTHER ==
[~2024-02-18] VITALS: Ht 175.3 cm; Wt 113.6 kg
[~2024-02-18 14:21] MED LIST changes: +ONDA-282; -ONDA4TAB6
[2024-02-18 15:05] LABS: BASO # 0.1 10^3/uL (0.0-0.2); BASO % 0.8 % (0.0-1.0); EOS # 0.1 10^3/uL (0.0-0.5); HEMATOCRIT 37.1 % (36.0-47.0); LYMPH # 2.1 10^3/uL (1.5-5.0); LYMPH % 33.9 % (24.0-44.0); MEAN CORPUSCULAR HEMOGLOBIN 27.6 pg (27.0-33.0); MEAN CORPUSCULAR HGB CONC 32.3 g/dl (32.0-36.5); MEAN CORPUSCULAR VOLUME 85.3 fl (80.0-96.0); MONO # 0.4 10^3/uL (0.0-0.8); MONO % 6.1 % (2.0-8.0); NEUTROPHILS # 3.5 10^3/uL (1.5-8.5); NEUTROPHILS % 57.9 % (36.0-66.0); PLATELET COUNT, AUTOMATED 306 10^3/uL (150-450); RED BLOOD COUNT 4.35 10^6/uL (4.00-5.40); WHITE BLOOD COUNT 6.1 10^3/uL (4.0-10.0)
[2024-02-18 15:46] LABS: BLOOD UREA NITROGEN 10 MG/DL (9-23); CALCIUM LEVEL 9.4 MG/DL (8.5-10.1); CARBON DIOXIDE LEVEL 25 MMOL/L (20-31); CHLORIDE LEVEL 106 MMOL/L (98-107); CREATININE FOR GFR 0.61 MG/DL (0.55-1.30); GLOMERULAR FILTRATION RATE > 60.0 (>60); GLUCOSE, FASTING 86 MG/DL (60-100); POTASSIUM SERUM 4.6 MMOL/L (3.5-5.1); SODIUM LEVEL 135 MMOL/L (136-145)
[2024-02-18 17:58] LABS: BASO % 0.5 % (0.0-1.0); EOS # 0.1 10^3/uL (0.0-0.5); EOS % 0.9 % (0.0-3.0); HEMATOCRIT 36.3 % (36.0-47.0); HEMOGLOBIN 11.8 g/dl (12.0-15.5); LYMPH # 2.1 10^3/uL (1.5-5.0); LYMPH % 37.6 % (24.0-44.0); MEAN CORPUSCULAR HEMOGLOBIN 27.6 pg (27.0-33.0); MEAN CORPUSCULAR HGB CONC 32.5 g/dl (32.0-36.5); MEAN CORPUSCULAR VOLUME 84.8 fl (80.0-96.0); MONO # 0.3 10^3/uL (0.0-0.8); MONO % 4.5 % (2.0-8.0); NEUTROPHILS # 3.1 10^3/uL (1.5-8.5); NEUTROPHILS % 56.3 % (36.0-66.0); PLATELET COUNT, AUTOMATED 280 10^3/uL (150-450); RED BLOOD COUNT 4.28 10^6/uL (4.00-5.40); WHITE BLOOD COUNT 5.5 10^3/uL (4.0-10.0)
[2024-02-18 18:18] LABS: BLOOD UREA NITROGEN 10 MG/DL (9-23); CALCIUM LEVEL 9.3 MG/DL (8.5-10.1); CARBON DIOXIDE LEVEL 26 MMOL/L (20-31); CHLORIDE LEVEL 105 MMOL/L (98-107); CREATININE FOR GFR 0.64 MG/DL (0.55-1.30); GLOMERULAR FILTRATION RATE > 60.0 (>60); GLUCOSE, FASTING 84 MG/DL (60-100); POTASSIUM SERUM 4.8 MMOL/L (3.5-5.1); SODIUM LEVEL 135 MMOL/L (136-145)
[2024-02-18 18:21] LABS: FREE T3 2.1 PG/ML (2.3-4.2); FREE T4 0.56 NG/DL (0.89-1.76)
[2024-02-18 18:29] LABS: THYROID STIMULATING HORMONE > 150.000 uIU/ML (0.55-4.78)
[2024-02-18] MEDS ORDERED: HYDROCORTISONE 100MG/2ML VIAL IV ONE (19:20)
[2024-02-18] MEDS: HYDROCORTISONE 100MG/2ML VIAL IV SCH (20:01)
[2024-02-18] MEDS: LEVOTHYROXINE 100MCG (0.1MG) 5ML SDV PF (SOLUTION FORM) IV ONE (20:01)
[2024-02-18] MEDS ORDERED: PROHANCE 279.3MG/ML 5ML VIAL As Ordered ONE (20:38)
[2024-02-18] MEDS ORDERED: PROHANCE 279.3MG/ML 15ML VIAL As Ordered ONE (20:38)
[2024-02-18] MEDS ORDERED: HYDROCORTISONE 100MG/2ML VIAL IV SCH (21:00)
[2024-02-18] MEDS: FLUORESCEIN OPHTH 1MG STRIP OS ONE (23:37)
[2024-02-18] MEDS: TETRACAINE 0.5% OPHTH SOLN 4ML OU ONE (23:38)
[2024-02-19 00:52] VITALS: BP 138/77; TEMP 97.4; O2SAT 99
== END 2024-02-19 01:30 | disposition short-term general hospital (02) ==
LOC: EDBD 14:21 → M ED 14:21
DX: H54.7 Unspecified visual loss (principal); E03.9 Hypothyroidism, unspecified; K21.9 Gastro-esophageal reflux disease without esophagitis; Z85.850 Personal history of malignant neoplasm of thyroid; Z79.1 Long term (current) use of non-steroidal anti-inflammatories (NSAID); Z79.899 Other long term (current) drug therapy
CPT/HCPCS: 70450; 70543; 70553; 80047; 80048; 84439; 84443; 84481; 85025; 96374; 99284; A9576; J0651; J1720

== ENCOUNTER → 2024-11-26 | Outpatient (CLI) | payer OTHER | LOC: M RAD 07:18 | PROVIDERS: ATTEND Physician Assistant | DX: J32.8 Other chronic sinusitis (principal) ==